=== PATIENT | female | born 1965 | race Caucasian/White ===

== ENCOUNTER → 2019-12-06 08:18 | Outpatient (BNVA) | payer OTHER, SELFPAY | PROVIDERS: Family Provider Family Medicine; PCP Family Medicine; Visit Provider Family Medicine | DX: I10 Essential (primary) hypertension (principal) | CPT/HCPCS: 80061 ==

== ENCOUNTER → 2019-12-13 17:11 | Outpatient (BNVA) | payer OTHER, SELFPAY | PROVIDERS: Family Provider Family Medicine; PCP Family Medicine; Referring Provider Family Medicine; Visit Provider Obstetrics & Gynecology Female Pelvic Medicine and Reconstructive Surgery | DX: Z12.4 Encounter for screening for malignant neoplasm of cervix (principal); Z12.39 Encounter for other screening for malignant neoplasm of breast; N81.6 Rectocele; N81.5 Vaginal enterocele; F17.219 Nicotine dependence, cigarettes, with unspecified nicotine-induced disorders | CPT/HCPCS: 81003; 88175 ==

== ENCOUNTER → 2020-01-05 07:57 | Outpatient (BNVA) | payer OTHER, SELFPAY | PROVIDERS: Family Provider Family Medicine; PCP Family Medicine; Visit Provider Obstetrics & Gynecology Female Pelvic Medicine and Reconstructive Surgery | DX: R87.612 Low grade squamous intraepithelial lesion on cytologic smear of cervix (LGSIL) (principal); R87.89 Other abnormal findings in specimens from female genital organs | CPT/HCPCS: 88305 ==

== ENCOUNTER → 2020-01-24 09:27 | Outpatient (BNVA) | payer OTHER, SELFPAY | PROVIDERS: Family Provider Family Medicine; PCP Family Medicine; Visit Provider Obstetrics & Gynecology Female Pelvic Medicine and Reconstructive Surgery | DX: R87.613 High grade squamous intraepithelial lesion on cytologic smear of cervix (HGSIL) (principal) | CPT/HCPCS: 88305; 88307 ==

== ENCOUNTER 2020-04-17 13:00 | Observation (INO) | payer OTHER, SELFPAY ==
[2020-04-13 12:45] VITALS: BMI 28.2
--- NOTE | 2020-04-13 13:03 | ANES.PREANE2 ---
Pre-Anesthetic Assessment Pre-Anesthetic Assessment: Height/Weight: Height 1.68 m Weight 79.379 kg Preop Diagnosis: Rectocele, Enterocele, Urinary incontinence - mixed Proposed Procedure: Operation Date: 04/17/20 11:05 Proposed Procedures p Posterior colporrhaphy with enterocele Code: 02625/86708/26662/N81.6/N81.5/N39.46(Not Applicable) - Martin Jimenez MD s Single incision urethral sling 59127(Not Applicable) - Martin Jimenez MD s Cystourethroscopy 98030(Not Applicable) - Martin Jimenez MD Social: Social History: Alcohol (occ) and Tobacco Exam: Pre-Anes Outpt Exam: alert, oriented x 3, clear to auscultation bilaterally and regular rate & rhythm Airway: Submandibular: WNL Cervical ROM: WNL MP: 1 Dentition: False (upper and lower) History/ROS: No significant history except as noted Pulmonary: Pulmonary: None reported CV/HEM: CV/HEM: HTN : : None reported Hepatic: Hepatic: None reported GI: GI: None reported Metabolic: Metabolic: None reported Musc/skel: Musc/skel: None reported Neuropsych: Neuropsych: None reported Anesthetic Plan: ASA status: 2 Anesthesia: Anesthesia Evaluation and General Risk of > 500 ml blood loss (7ml/kg in children): No PFSH Anesthesia PFSH: Medical History Benign essential hypertension OMID (generalized anxiety disorder) Surgical History H/O hernia repair History of bilateral tubal ligation (~2005) Family History Mother Ovarian cancer Uterine cancer Colon cancer high risk Grandmother Diabetes maternal Grandfather Hypertension maternal Thyroid disease maternal Social History Smoking and tobacco status: current every day smoker cigarettes Packs smoked per day: 0.5 Alcohol intake: current Alcohol intake frequency: holidays/special occasions only Data Anesthesia Cardiac Studies: No Data to Display
[2020-04-13 13:13] LABS: Add Urine Microscopic? NO
[2020-04-13 13:26] LABS: Basophils % 0.4 %; Eosinophils # 0.2 10^3/uL (0.0-0.8); Eosinophils % 2.3 %; Hematocrit 44.7 % (37.0-47.0); Hemoglobin 14.3 g/dL (11.5-15.3); Lymphocytes # 2.1 10^3/uL (0.8-4.8); Lymphocytes % 25.4 %; Mean Corpuscular Hemoglobin 30.9 pg (28.0-34.0); Mean Corpuscular Volume 96.5 fL (81-99); Mean Platelet Volume 11.4 fL (7.4-10.4); Monocytes # 0.8 10^3/uL (0.2-0.9); Monocytes % 9.3 %; Neutrophils # 5.06 10^3/uL (1.8-7.7); Neutrophils % 62.2 %; Nucleated Red Blood Cells % 0 %; Platelet Count 234 10^3/cmm (130-400); Red Blood Count 4.63 10^6/uL (4.1-5.3); Red Cell Distribution Width 12.3 % (12.1-15.1); White Blood Count 8.1 10^3/uL (4.0-10.0)
[2020-04-13 13:29] LABS: Bilirubin Urine Neg (NEGATIVE); Blood Urine Neg (Negative); Glucose Urine UA Norm (Normal); Ketones Urine Negative (Negative); Leukocyte Esterase Urine Negative (Negative); Nitrate Urine Negative (Negative); Protein Urine Neg (Negative); Specific Gravity, Urine 1.025 (1.005-1.030); Urine Appearance Clear (CLEAR); Urine Color Yellow (Yellow); Urobilinogen Urine Norm (Negative)
[2020-04-13 13:37] LABS: Anion Gap 14.9 (5-19); Blood Urea Nitrogen 12 mg/dL (6-20); Calcium 9.4 mg/dL (8.5-10.5); Carbon Dioxide 27 mmol/L (22-29); Chloride 96 mmol/L (98-107); Glomerular Filtration Rate 164.5 mL/min (90-130); Glucose 89 mg/dL (65-115); Osmolality Calculated 274 mOsm/kg (285-295); Potassium 3.9 mmol/L (3.5-5.1); Sodium 134 mmol/L (136-145)
[2020-04-17] VITALS (14 sets, daily range): BP systolic 92–142; BP diastolic 52–76; PULSE 55–94; RESP 13–20; TEMP 36.1–37; O2SAT 91–98
--- NOTE | 2020-04-17 08:26 | P.ANESASSM_ITS ---
Pre-Anesthetic Assessment Pre-Anesthetic Assessment: Height/Weight: Height 1.68 m Weight 79.379 kg Preop Diagnosis: Rectocele, Enterocele, Urinary incontinence - mixed Proposed Procedure: Operation Date: 04/17/20 09:35 Proposed Procedures p Posterior colporrhaphy with enterocele Code: 48826/57 288/58649/N81.6/N81.5/N39.46(Not Applicable) - Martin Jimenez MD s Single incision urethral sling 39531(Not Applicable) - Martin Jimenez MD s Cystourethroscopy 78952(Not Applicable) - Martin Jimenez MD Was Beta Clark taken within 24 hours: N/A Social: Social History: Tobacco and No alcohol Exam: Pre-Anes Outpt Exam: alert, oriented x 3, clear to auscultation bilaterally (Some coarse b/l BS noted; these cleared post tussive) and regular rate & rhythm Airway: Submandibular: WNL Cervical ROM: WNL MP: 1 Dentition: Full History/ROS: No significant history except as noted Pulmonary: Pulmonary: COPD CV/HEM: CV/HEM: HTN : : None reported Hepatic: Hepatic: None reported GI: GI: None reported Metabolic: Metabolic: None reported Musc/skel: Musc/skel: None reported Neuropsych: Neuropsych: Depression Anesthetic Plan: ASA status: 3 Anesthesia: General PFSH Anesthesia PFSH: Medical History Benign essential hypertension OMID (generalized anxiety disorder) Surgical History H/O hernia repair History of bilateral tubal ligation (~2005) Family History Mother Ovarian cancer Uterine cancer Colon cancer high risk Grandmother Diabetes maternal Grandfather Hypertension maternal Thyroid disease maternal Social History Smoking and tobacco status: current every day smoker cigarettes Packs smoked per day: 0.5 Alcohol intake: current Alcohol intake frequency: holidays/special occasions only Other details last substance use: Denies drug use. Data Anesthesia CBC & Chem 7: 04/13/20 12:57 04/13/20 12:57 Cardiac Studies: No Data to Display
[2020-04-17] MEDS: sodium chloride 0.9% 1,000 ML 30 ML IV (08:32)
[2020-04-17] MEDS: ketorolac 30 mg/mL INJ IVP ×2 (08:39→14:58)
[2020-04-17] MEDS: phenazopyridine 100 mg Tablet 200 MG PO ×3 (08:39→21:02)
--- NOTE | 2020-04-17 10:10 | P.HPUD_ITS ---
Surgery/Procedure H&P Update DATE OF PROCEDURE: April 17, 2020 DATE H&P PERFORMED: 04/13/20 H&P UPDATE INFORMATION: I have reviewed H&P completed within last 30 days, I have examined patient prior to procedure, No changes to prior documentation and H&P is in [facility] EMR on date indicated PREOP DIAGNOSIS: Rectocele, Enterocele, Urinary incontinence - mixed PLANNED PROCEDURE: Operation Date: 04/17/20 09:35 Proposed Procedures p Posterior colporrhaphy with enterocele Code: 61433/96687/55973/N81.6/N81.5/N39.46(Not Applicable) - Martin Jimenez MD s Single incision urethral sling 05565(Not Applicable) - Martin Jimenez MD s Cystourethroscopy 33856(Not Applicable) - Martin Jimenez MD
--- NOTE | 2020-04-17 10:10 | W.PM.OPSUD ---
Surgery/Procedure H&P Update DATE OF PROCEDURE: April 17, 2020 DATE H&P PERFORMED: 04/13/20 H&P UPDATE INFORMATION: I have reviewed H&P completed within last 30 days, I have examined patient prior to procedure, No changes to prior documentation and H&[place] is in [facility] [place] date indicated PREOP DIAGNOSIS: Rectocele, Enterocele, Urinary incontinence - mixed PLANNED PROCEDURE: Operation Date: 04/17/20 09:35 Proposed Procedures p Posterior colporrhaphy with enterocele Code: 32383/91124/60054/N81.6/N81.5/N39.46(Not Applicable) - Martin Jimenez MD s Single incision urethral sling 02202(Not Applicable) - Martin Jimenez MD s Cystourethroscopy 91180(Not Applicable) - Martin Jimenez MD
[2020-04-17] MEDS: vasopressin 20 unit/mL INJ 12 UNIT INJECTION (12:16)
--- NOTE | 2020-04-17 12:37 | SUR.PHASEI ---
1228 PATIENT TO PACU FROM OR. RR EVEN AND UNLABORED, SPO2 93% ON RA. DAVIS CATH IN PLACE. PATIENT C/O NEEDING TO HAVE A BM, BEDPAN PROVIDED.
--- NOTE | 2020-04-17 12:46 | P.OP_ITS ---
Operative Report Date of procedure: April 17, 2020 Pre-op Diagnosis: Rectocele, Enterocele, Urinary incontinence - mixed Post-op Diagnosis: Rectocele, Mixed urinary incontinence Procedure Done: Posterior colporrhaphy, Single incision suburethral sling, Cystoscopy Specimens removed/disposition: None Surgeon: Martin Jimenez Commercial Drone Software Developer: Bela Anesthesia: General Estimated blood loss (mL): 75 IV fluids (mL): 1,500 Complications: None Findings: Fourth degree rectocele. No enterocele identified. Brief History: Patient is a 55-year-old white female 7, para 7-0-0-6 who is postmenopausal. She presented to the office in December 2019 with complaint of prolapse problems. This is been worsening over the last 4 years. She has a protrusion from the vagina pretty much all the time which worsens with standing and straining. On exam she was found to have a 4th degree rectocele with a suspected enterocele. She was also having problems with mixed urinary incontinence and was noted to have hypermobility of the urethra. Treatment options for these problems were discussed and she is presenting for surgical treatment. She is scheduled for a posterior colporrhaphy with possible enterocele repair and a single incision suburethral sling. Procedure: Patient was taken to the operating room were general anesthesia was obtained. She was prepped and draped in usual sterile fashion dorsal supine position with legs in Baljeet style stirrups. Sequential compression boots were placed prior to starting the case. Exam under anesthesia was performed. She was noted to have fourth degree rectocele. Norman catheter was inserted. Perineum was injected with dilute Pitressin solution. A wedge shaped piece of skin was excised from the perineum. Posterior vaginal wall was injected with dilute Pitressin solution. The vaginal mucosa was undermined in the midline and skin incision made. This was opened over most of the length of the posterior vaginal wall. The vaginal mucosa was dissected from the rectovaginal fascia usi ng a combination of sharp and blunt dissection. This was carried along to the full length of the posterior vaginal wall and to the lateral aspects bilaterally. During the dissection process, she was found to have the rectovaginal fascia completely from the upper portion of the vagina. During the dissection, exam had revealed that she did not have an enterocele and that the entire prolapse was purely from a rectocele. The fascia at the perineum area was identified and grasped with long Allis clamps. At the upper vagina, stitches of 2-0 Vicryl suture were placed laterally into the area of the uterosacral ligaments. These were secured to the rectovaginal fascia. Once these were placed they were then tied, securing the rectovaginal fascia to the upper supports. Areas of defect of the rectovaginal fascia were then reapproximated using interrupted stitches of 2-0 Vicryl suture. The rectocele was able to be completely reduced with this. Excess vaginal mucosa was excised. The vaginal mucosa was closed in a running locking fashion using 3-0 Vicryl suture until the hymenal ring was reached and the suture was held. The perineal body was further built up using interrupted stitches of 2-0 Vicryl suture. A transition stitch was made using the previously held 3-0 Vicryl suture and the bulbocavernosus muscles were then incorporated into the stitch and tied in the midline. The superficial portion perineum was reapproximated using 3-0 Vicryl suture in a running fashion. The perineal skin was reapproximated using 3-0 Vicryl suture in a subcuticular fashion. The anterior vaginal wall and to the area of the urethra was grasped with Allis clamps and injected with dilute Pitressin solution. A midline incision was made under the urethra with the knife. The vaginal mucosa was bluntly dissected using Metzenbaum scissors to separate the skin from the underlying fascia directed towards the pubic rami bilaterally. Using a solyx single incision sling, sling was placed at the mid urethral level and passed through the periurethral fascia, directed at a 45 degree angle to the urethra and passed behind the pubic rami. This was repeated on the contralateral side. The sling was brought up until it just elevated the urethra. Norman catheter was removed and cystoscopy performed. Both ureters were noted to be effluxing urine well. No sling, suture material, masses, or other abnormalities were noted within the bladder or urethra. Bladder was drained and Norman catheter reinserted. Vaginal mucosa was reapproximated under the urethra using 3-0 Vicryl suture in a running locking fashion. The vagina was packed with 1 inch Nu Gauze. Patient tolerated procedure well. Sponge, needle, and instrument counts were correct. DRAINS: Norman catheter POSTOPERATIVE STATUS: The patient was transferred to the recovery room in satisfactory condition.
--- NOTE | 2020-04-17 13:10 | SUR.PHASEI ---
1251 PATIENT TO MED SURG. DENIES PAIN OR NAUSEA. C/O NEEDING TO HAVE A BM. PATIENT ASSISTED TO BSC WHEN ARRIVING TO MED SURG. GAIT STEADY, DAVIS AND VAG PACKING IN PLACE.
[2020-04-17] MEDS: dextrose 5%-lactated ringers 1,000 ML 125 ML IV ×2 (13:29→21:02)
[2020-04-17] MEDS: ondansetron 2 mg/ML SDV 2 mL 4 MG IVP (14:34)
--- NOTE | 2020-04-17 15:05 | PC.NURSE ---
packing intact and encouraged pt to keep from pulling packing out.
[2020-04-17] MEDS: docusate sodium 100 mg Capsule PO (17:00)
[2020-04-17] MEDS: acetaminophen 325 mg Tablet 650 MG PO (17:00)
[2020-04-17] MEDS: HYDROcodone-acetaminophen 5-325 mg Tablet PO (17:57)
[2020-04-18] VITALS: BP 109/67; PULSE 84; RESP 20; TEMP 36.9; O2SAT 92
[2020-04-18] MEDS: dextrose 5%-lactated ringers 1,000 ML 125 ML IV (03:56)
[2020-04-18 04:00] VITALS: BP 114/66; PULSE 92; RESP 20; TEMP 37.4; O2SAT 91
[2020-04-18] MEDS: HYDROcodone-acetaminophen 5-325 mg Tablet PO ×2 (04:37→09:40)
[2020-04-18 04:45] LABS: Hematocrit 40.5 % (37.0-47.0); Hemoglobin 12.6 g/dL (11.5-15.3); Mean Corpuscular HGB Conc 31.1 g/dL (30.0-36.0); Mean Corpuscular Hemoglobin 30.1 pg (28.0-34.0); Mean Corpuscular Volume 96.9 fL (81-99); Mean Platelet Volume 11.7 fL (7.4-10.4); Platelet Count 235 10^3/cmm (130-400); Red Blood Count 4.18 10^6/uL (4.1-5.3); Red Cell Distribution Width 12.2 % (12.1-15.1); White Blood Count 15.5 10^3/uL (4.0-10.0)
--- NOTE | 2020-04-18 05:46 | PC.NURSE ---
SHIFT SUMMARY Rested well tonight. Awake early watching TV. Says she goes to work early and is used to being up. Given po Hydrocodone X1 this morning. Was c/o back pain. Norman intact and has had good urine output with q2h output. Urine is orange from po Pyridium she is receiving. Vaginal packing in place. Has already ambulated in banks this morning and tolerated well. Taking po fluids well. Scant blood noted on pad
[2020-04-18 06:55] VITALS: RESP 16
[2020-04-18] MEDS: morphine 4 mg/mL SDV 1 mL IVP (06:55)
[2020-04-18 07:38] VITALS: BP 110/59; PULSE 82; RESP 18; TEMP 37.2; O2SAT 92
--- NOTE | 2020-04-18 08:27 | PM.PN ---
Subjective Subjective: Interval history: Patient reports doing well this morning. She states that her pain is been well controlled on the oral medications. She denied any lightheadedness or dizziness with getting up out of bed. She denied any shortness of breath or chest pains. She reports passing flatus. She reports tolerating liquids without nausea or vomiting. Vitals/I&O/Wt Last Vital Signs Temp 98.9 F 04/18/20 07:38 Pulse 82 04/18/20 07:38 Resp 18 04/18/20 07:38 BP 110/59 04/18/20 07:38 Pulse Ox 92 04/18/20 07:38 04/17/20 04/18/20 04/18/20 22:59 06:59 14:59 Intake Total 1190.00 / 2740.00 1156.25 / 3896.25 Output Total 775 / 1050 1400 / 2450 Balance 415.00 / 1690.00 -243.75 / 1446.25 Physical Exam Const: COMMON NORMALS: no acute distress, average body habitus, alert and well nourished GENERAL APPEARANCE: well developed ORIENTATION/CONSCIOUSNESS: Yes oriented to person, Yes oriented to place and Yes oriented to time Resp: COMMON NORMALS: normal respiratory effort and clear to auscultation bilaterally AUSCULTATION: clear to auscultation bilaterally Cardio: COMMON NORMALS: regular rate, regular rhythm, No gallops present (Cardio), No murmurs present (Cardio) and No rub (Cardio) RATE: regular rate RHYTHM: regular rhythm GI: COMMON NORMALS: Soft to palpation, No hepatosplenomegaly present and no masses AUSCULTATION: Yes normoactive bowel sounds PALPATION: Yes Soft to palpation, Yes Tenderness to palpation present (GI) (Mild lower abdominal discomfort to palpation), Yes No hepatosplenomegaly present and No Hernia present : EXTERNAL FEMALE EXAM: No Hernia present OTHER: Vaginal packing removed Extremity: COMMON NORMALS: no clubbing, cyanosis or edema and no calf tenderness Neuro: SENSORIUM/ORIENTATION: Yes alert, Yes oriented to person, Yes oriented to place and Yes oriented to time Psych: COMMON NORMALS: normal affect MOOD & AFFECT: Yes euthymic mood Urinary Catheter Management^: Norman: Cath Placed During This Visit: yes Urinary Catheter Date of Insertion: 04/17/20 Urinary Catheter Time of Insertion: 10:40 Data : 04/18/20 04:05 04/13/20 12:57 A&P Assessment and plan (1) Pelvic organ prolapse quantification stage 4 rectocele: Postoperative day 1, status post posterior vaginal repair. Vaginal packing removed this morning. Increase activities. May shower. Advance to regular diet. Discharge to home later this morning. Status: Acute (2) Urinary incontinence: Postoperative day 1, status post urethral sling. Norman catheter discontinued this morning. Check post void residuals. Depending upon how she does, she may have to go home with Norman catheter or self-catheterization. Status: Acute Qualifiers: Urinary Incontinence type: mixed stress and urge incontinence Qualified Code(s): N39.46 - Mixed incontinence Attestations Medical Necessity Statement*: Postoperative day 1. Plan to discharge to home later today. Coding Level of Care Code Acute Peer Financial Counselor for Jerson Estrella Diagnoses Pelvic organ prolapse quantification stage 4 rectocele N81.6 Urinary incontinence N39.46 Urinary Incontinence type: mixed stress and urge incontinence
[2020-04-18] MEDS: phenazopyridine 100 mg Tablet 200 MG PO (09:35)
[2020-04-18] MEDS: amlodipine 10 mg Tablet PO (09:36)
[2020-04-18] MEDS: docusate sodium 100 mg Capsule PO (09:36)
[2020-04-18] MEDS: sertraline 100 mg Tablet PO (09:36)
[2020-04-18] MEDS: sertraline 50 mg Tablet PO (09:36)
[2020-04-18] MEDS: lisinopril 20 mg Tablet PO (09:36)
--- NOTE | 2020-04-18 09:49 | PC.CHAP ---
Pastoral Care Encounter/Spiritual Assessment Type of Contact [] Declined proof reader visit [] Patient/Family/Request visit [] Outpatient visit [] Follow-up visit [] Physician referral [] Code/Alert [x] Routine visit [] Staff referral [] Actively dying [] Patient sleeping [] Family support [] [] Out of room [] Palliative care [] [] Receiving care in room [] Pre-surgical visit [] Trauma [] Long length of stay [] ICU visit [] Other: Relational/Emotional Strength [] Patient feels connected with others/family/visitors/staff [] Distress [] Loneliness/isolation [] Abandonment Spirituality of Patient [] Person of Evi [] Attends Mandaen of their Evi [] Believes in Prayer [] Reads Bible or Yarsanism materials [] There are Spiritual issues to be addressed Upholstery Auto Trimmer Interventions [x] Prayer [x] Active listening [x] Non-anxious presence [x] Spiritual/emotional support [] Crisis/trauma care [] Spiritual counseling [] Bereavement support [] Provided bereavement packet [] Provided Bible/devotional materials [] Provided toy/stuffed animal, coloring book to patient or family member [] Provided Communion [] Anointing/[place] [] Salvation [x] Completed spiritual assessment [] Other: Impact on Illness or Injury [] Angry [] Fearful [] Anxious [] Often cries [] Exhaustion [] Unable to work [] Unable to attend denominational [] Unable to walk/stand [] Unable to read [] Unable to drive [] Unable to eat/drink [] Unable to sleep [] Unable to be with family [] Patient intubated [] Other: Summary Patient resting well Time spent with patient 5 min
[2020-04-18 11:18] VITALS: BP 96/60; PULSE 75; RESP 20; TEMP 37.1; O2SAT 94
--- NOTE | 2020-04-18 12:05 | PC.RESP ---
Smoking Cessation information sent to patient.
--- NOTE | 2020-04-18 13:24 | P.DS_ITS ---
Discharge Providers Date of Admission: 04/17/20 13:00 Date of Discharge: April 18, 2020 Attending Provider at Admission: Martin Jimenez MD Attending Provider at Discharge: Martin Jimenez MD Primary Care Provider: Florecita Thomas DO Diagnoses at Discharge Discharge Diagnosis (1) Pelvic organ prolapse quantification stage 4 rectocele: Status: Acute (2) Urinary incontinence: Status: Acute Qualifiers: Urinary Incontinence type: mixed stress and urge incontinence Qualified Code(s): N39.46 - Mixed incontinence Reason for Visit Reason for Visit: PROLAPSE Hospital Course Hospital Course: Patient is a 55-year-old white female 7, para 7-0-0-6 who is postmenopausal. She presented to the office with prolapse complaints that have been worsening over the last 4 years. She reported a bulge from the vaginal opening that was present most of the time that would worsen with standing and straining. She was found to have a 4th degree rectocele with a suspected enterocele. She also reported urinary incontinence including both stress and urgency symptoms. Treatment options were discussed and she was presenting for surgical treatment. She was admitted to the hospital and had a posterior vaginal repair and single incision suburethral sling. Following surgery she did well. On postoperative day 1, she reported that her pain was well controlled on oral medications. She was tolerating liquids without nausea or vomiting. She was ambulating without lightheadedness or dizziness. Her pain was well controlled on oral medications. She was afebrile with stable vital signs. Activities were increased. Norman catheter was removed and post void residuals checked. She had a voided volume of over 400 mL with less than a 50 residual. As a result, post void residual checking was stopped and she was discharged home. She was to follow-up in the office in 2 and 6 weeks. Physical Exam Urinary Catheter Management^: Norman: Cath Placed During This Visit: yes Urinary Catheter Date of Insertion: 04/17/20 Urinary Catheter Time of Insertion: 10:40 Discharge Data Data Completed and Pending: Labs from last 24 hours 04/18/20 04:05 WBC 15.5 H RBC 4.18 Hgb 12.6 Hct 40.5 MCV 96.9 MCH 30.1 MCHC 31.1 RDW 12.2 Plt Count 235 MPV 11.7 H Vitals: Last Vital Signs Temp 98.8 F 04/18/20 11:18 Pulse 75 04/18/20 11:18 Resp 20 H 04/18/20 11:18 BP 96/60 04/18/20 11:18 Pulse Ox 94 04/18/20 11:18 Discharge Plan Discharge Patient Disposition: Home, Self-Care Condition: Stable Prescriptions: New ibuprofen 800 mg Tablet 800 mg PO TID PRN (Reason: pain) Qty: 40 RF: 0 hydrocodone-acetaminophen 5-325 mg Tablet 1 - 2 tab PO Q6H PRN (Reason: Moderate To Severe Pain) Qty: 30 RF: 0 Continued amlodipine [Norvasc] 10 mg tablet 10 mg PO DAILY Qty: 90 RF: 1 lisinopril 20 mg tablet 20 mg PO DAILY Qty: 90 RF: 1 sertraline [Zoloft] 50 mg tablet 50 mg PO DAILY Qty: 90 RF: 1 sertraline [Zoloft] 100 mg tablet 100 mg PO DAILY Qty: 90 RF: 1 Held Premarin 0.625 mg/gram cream 1.25 mg VAGINAL .nightly Qty: 30 RF: 1 Hold Instructions: Resume on 04/30/20. Restart the vaginal estrogen approx 2 weeks after surgery Discharge Orders: Discharge Order (Routine); Ordered 04/18/20 Ordered By: Martin Jimenez Referrals: Martin Jimenez MD [Physician] - 04/30/20 8:45 am (2 week postoperative appointment on 04/30/2020 at 08:45 6 week postoperative appointment on 06/04/2020 at 08:00 ) Discharge Diet: Regular Discharge Activity: Limit activity as instructed Patient Instructions: Hydrocodone/Acetaminophen (By mouth), Ibuprofen (By mouth), OB Abdominal Surgery - [facility], Urinary Incontinence Discharge Attestations Time Spent in Discharge Care*: less than 30 min Quality Metrics Clinical Quality Measures During this hospital stay, did patient experience: None Coding Level of Care Code Acute Oil Well Service Unit Operator for Chg Fwd Diagnoses Pelvic organ prolapse quantification stage 4 rectocele N81.6 Urinary incontinence N39.46 Urinary Incontinence type: mixed stress and urge incontinence
[2020-04-18 14:01] VITALS: BP 96/60; PULSE 75; RESP 20; TEMP 37.1; O2SAT 94
== END 2020-04-18 14:03 | disposition home or self-care (01) ==
LOC: MEDSURG 13:00
PROVIDERS: Admitting Provider Obstetrics & Gynecology; PCP Family Medicine; Visit Provider Obstetrics & Gynecology
PROC: (CPT 57250; principal; 2020-04-17 09:35)
PROC: (CPT 57288; 2020-04-17 09:35)
PROC: 0TJ98ZZ Inspection of Ureter, Via Natural or Artificial Opening Endoscopic (ICD-10-PCS; CPT 52351; 2020-04-17 09:35)
DX: N81.6 Rectocele (principal); K46.9 Unspecified abdominal hernia without obstruction or gangrene; N39.46 Mixed incontinence; J44.9 Chronic obstructive pulmonary disease, unspecified; I10 Essential (primary) hypertension; F41.9 Anxiety disorder, unspecified; Z80.41 Family history of malignant neoplasm of ovary; Z80.8 Family history of malignant neoplasm of other organs or systems; Z80.0 Family history of malignant neoplasm of digestive organs; F17.210 Nicotine dependence, cigarettes, uncomplicated
CPT/HCPCS: 57265; 57288; 12345; 36415; 51798; 80048; 81003; 85025; 85027; 86850; 86900; 87086; 96361; 96365; 96374; 96375; C1771; G0378; J0690; J1885; J1940; J2270; J2405; J2710; J3010; J3490; J7030

== ENCOUNTER → 2020-12-27 08:18 | Outpatient (BNVA) | payer OTHER, SELFPAY | PROVIDERS: PCP Family Medicine; Visit Provider Family Medicine | DX: E78.5 Hyperlipidemia, unspecified (principal); F41.1 Generalized anxiety disorder; Z86.39 Personal history of other endocrine, nutritional and metabolic disease; I10 Essential (primary) hypertension; F17.219 Nicotine dependence, cigarettes, with unspecified nicotine-induced disorders; Z71.6 Tobacco abuse counseling; Z71.89 Other specified counseling | CPT/HCPCS: 80053; 80061; 82043; 82306; 85025; 87086 ==

== ENCOUNTER 2021-07-08 13:48 | Outpatient (CLI) | payer OTHER, SELFPAY ==
--- NOTE | 2021-07-08 14:00 | MM_ITS ---
WS: [id number] SCREENING DIGITAL MAMMOGRAM WITH CAD HISTORY: screening mammogram COMPARISON: 12/10/2015 Bilateral CC and MLO views submitted. Computer aided detection analyzed. Breast composition: There are scattered areas of fibroglandular density. No suspicious masses, microc alcifications or architectural distortion. MM/[place] [id number] IMPRESSION: BI-RADS: 1-Negative FOLLOW UP: 1 Year Follow-up
== END 2021-07-08 13:49 | disposition home or self-care (01) ==
LOC: RADSHAW 13:50
PROVIDERS: PCP Family Medicine; Visit Provider Family Medicine
DX: Z12.31 Encounter for screening mammogram for malignant neoplasm of breast (principal)
CPT/HCPCS: 77067

== ENCOUNTER 2022-09-15 07:38 | Day surgery (SDC) | payer OTHER, SELFPAY ==
[2022-09-11 10:17] VITALS: BMI 27.4
[2022-09-15 08:06] VITALS: BP 168/102; PULSE 98; RESP 18; TEMP 36.2; O2SAT 92
[2022-09-15] MEDS: sodium chloride 0.9% 1,000 ML 30 ML IV (08:12)
--- NOTE | 2022-09-15 08:23 | ANES.PREANE2 ---
Pre-Anesthetic Assessment Height/Weight: Height 1.68 m Weight 77.111 kg Temp Pulse Resp BP Pulse Ox O2 Del Method 97.1 F L 98 18 168/102 92 09/15/22 08:06 09/15/22 08:06 09/15/22 08:06 09/15/22 08:06 09/15/22 08:06 09/15/22 08:06 Preop Diagnosis: Rectocele, Enterocele, Urinary incontinence - mixed Operation Date: 09/15/22 09:30 Proposed Procedures p Colonoscopy 16739,Z80.0(Not Applicable) - Jesus Flaherty DO Familial anesthetic complications: None Was Beta Clark taken within 24 hours: N/A Was Clonidine taken within 24 hours: N/A Last intake: Intake Last Liquid Date 09/14/22 Last Liquid Time 23:45 Last Solid Date 09/13/22 Last Solid Time 21:00 Social Tobacco and No alcohol Exam alert, oriented x 3, clear to auscultation bilaterally and regular rate & rhythm Airway Mallampati: Class III Dentition: false Pulmonary Chronic Obstructive Pulmonary Disease CV/HEM Hypertension Metabolic Hyperlipidemia Anesthetic Plan ASA status: 3 Anesthesia: MAC Risk of > 500 ml blood loss (7ml/kg in children): No Medications/Allergies Home Medications Medication Instructions Recorded Confirmed Last Taken Type cholecalciferol (vitamin D3) 1,250 50,000 unit PO .ONCE WEEKLY #12 12/28/20 09/15/22 09/13/22 Rx mcg (50,000 unit) capsule caps amlodipine 10 mg tablet (Norvasc) 10 mg PO DAILY #90 tabs 04/30/22 09/15/22 09/13/22 Rx atorvastatin 10 mg tablet 10 mg PO DAILY #90 tabs 04/30/22 09/15/22 09/13/22 Rx lisinopril 20 mg tablet 20 mg PO DAILY #90 tabs 04/30/22 09/15/22 09/13/22 Rx sertraline 100 mg tablet (Zoloft) 100 mg PO DAILY #90 tabs 04/30/22 09/15/22 09/13/22 Rx sertraline 50 mg tablet (Zoloft) 50 mg PO DAILY #90 tabs 04/30/22 09/15/22 09/13/22 Rx peg 3350-electrolytes 236 240 ml PO Q10M #4,000 mL 06/13/22 09/15/22 09/13/22 Rx gram-22.74 gram-6.74 gram-5.86 gram solution (Golytely) albuterol sulfate 90 mcg/actuation 2 inh inhalation Q4H PRN shortness 07/20/22 09/15/22 1 Week Ago Rx aerosol inhaler of breath or wheezing #6.7 grams ~09/08/22 ibuprofen 600 mg tablet 600 mg PO Q6H PRN fever or pain 07/20/22 09/15/22 1 Week Ago Rx #30 tabs ~09/08/22 prednisone 20 mg tablet 60 mg PO DAILY 5 days #15 tabs 07/20/22 09/15/22 09/13/22 Rx Allergies Allergy/AdvReac Type Severity Reaction Status Date / Time Penicillins AdvReac Mild hives, Verified 07/20/22 13:06 itching Current Medications Generic Name Dose Route Start Last Admin Trade Name Freq PRN Reason Stop Dose Admin Sodium Chloride 1,000 mls @ 30 mls/hr 09/15/22 08:00 09/15/22 08:12 Sodium Chloride 0.9% IV 09/16/22 07:59 30 mls/hr .Q24H OLGA Administration PFSH Anesthesia Medical History Acute pharyngitis Benign essential hypertension Dyslipidemia OMID (generalized anxiety disorder) Neck swelling Surgical History H/O hernia repair History of bilateral tubal ligation (~2005) History of vaginal surgery (04/17/20) Posterior colporrhaphy, SIS sling. Dx: Fourth degree rectocele, BRIANNA. Performed by Dr. Jimenez at [facility] in [place], [place] Hx of colonoscopy with polypectomy Family History Mother Ovarian cancer Uterine cancer Colon cancer high risk Grandmother Diabetes maternal Grandfather Hypertension maternal Thyroid disease maternal Social History Smoking and tobacco status: current every day smoker cigarettes Packs smoked per day: 0.75 Alcohol intake: current Alcohol intake frequency: holidays/special occasions only Other details last substance use: Denies drug use. Data Anesthesia Cardiac Studies: No Data to Display
--- NOTE | 2022-09-15 09:37 | P.HP_ITS ---
Providers/Chief Complaint Primary Care Provider: Florecita Thomas DO Chief Complaint: Z80.0 History of Present Illness Linda Alejandra is a 57 year old female here for colonoscopy Medications/Allergies Home Medications Medication Instructions Recorded Confirmed Last Taken Type cholecalciferol (vitamin D3) 1,250 50,000 unit PO .ONCE WEEKLY #12 12/28/2009/0409/13/22 Rx mcg (50,000 unit) capsule caps amlodipine 10 mg tablet (Norvasc) 10 mg PO DAILY #90 tabs 04/30/22 09/15/22 09/13/22 Rx atorvastatin 10 mg tablet 10 mg PO DAILY #90 tabs 04/30/22 09/15/22 09/13/22 Rx lisinopril 20 mg tablet 20 mg PO DAILY #90 tabs 04/30/22 09/15/22 09/13/22 Rx sertraline 100 mg tablet (Zoloft) 100 mg PO DAILY #90 tabs 04/30/22 09/15/22 09/13/22 Rx sertraline 50 mg tablet (Zoloft) 50 mg PO DAILY #90 tabs 04/30/22 09/15/22 09/13/22 Rx peg 3350-electrolytes 236 240 ml PO Q10M #4,000 mL 06/13/22 09/15/22 09/13/22 Rx gram-22.74 gram-6.74 gram-5.86 gram solution (Golytely) albuterol sulfate 90 mcg/actuation 2 inh inhalation Q4H PRN shortness 07/20/22 09/15/22 1 Week Ago Rx aerosol inhaler of breath or wheezing #6.7 grams ~09/08/22 ibuprofen 600 mg tablet 600 mg PO Q6H PRN fever or pain 07/20/22 09/15/22 1 Week Ago Rx #30 tabs ~09/08/22 prednisone 20 mg tablet 60 mg PO DAILY 5 days #15 tabs 07/20/22 09/15/22 09/13/22 Rx Allergies Allergy/AdvReac Type Severity Reaction Status Date / Time Penicillins AdvReac Mild hives, Verified 07/20/22 13:06 itching PFSH Acute PFSH: Medical History Acute pharyngitis Benign essential hypertension Dyslipidemia OMID (generalized anxiety disorder) Neck swelling Surgical History H/O hernia repair History of bilateral tubal ligation (~2005) History of vaginal surgery (04/17/20) Posterior colporrhaphy, SIS sling. Dx: Fourth degree rectocele, BRIANNA. Performed by Dr. Jimenez at [facility] in [place], [place] Hx of colonoscopy with polypectomy Family History Mother Ovarian cancer Uterine cancer Colon cancer high risk Grandmother Diabetes maternal Grandfather Hypertension maternal Thyroid disease maternal Social History Smoking and tobacco status: current every day smoker cigarettes Packs smoked per day: 0.75 Alcohol intake: current Alcohol intake frequency: holidays/special occasions only Other details last substance use: Denies drug use. Vitals/I&O/Wt Last Vital Signs Temp 97.1 F L 09/15/22 08:06 Pulse 98 09/15/22 08:06 Resp 18 09/15/22 08:06 BP 168/102 09/15/22 08:06 Pulse Ox 92 09/15/22 08:06 O2 Del Method 09/15/22 08:06 A&P Assessment and plan (1) Family history of colon cancer: (2) Colon cancer screening: Plan Colonoscopy Attestations Medical Necessity Statement*: Home Coding Level of Care Code Acute Automation Engineering Manager for Chg Fwd Diagnoses Family history of colon cancer Z80.0 Colon cancer screening Z12.11
[2022-09-15 10:04] VITALS: BP 110/72; PULSE 83; RESP 12; TEMP 36.3; O2SAT 97
[2022-09-15 10:14] VITALS: BP 128/76; PULSE 94; RESP 14; O2SAT 94
[2022-09-15 10:23] VITALS: BP 141/92; PULSE 91; RESP 16; O2SAT 92
--- NOTE | 2022-09-15 14:08 | ANE.PACU2 ---
Inpatient post-anesthesia follow up: Airway intact: Yes Vital signs: Temperature 97.3 F Pulse Rate 91 Respiratory Rate 16 Blood Pressure 141/92 Pulse Oximetry 92 Oxygen Delivery Me thod Room Air Oxygen Flow Rate Fraction of Inspir ed Oxygen Hydration adequate: Yes Nausea and vomiting: No Pain level: 1 Mental status: Baseline
== END 2022-09-15 10:30 | disposition home or self-care (01) ==
PROVIDERS: PCP Family Medicine; Visit Provider Surgery
PROC: 0DJD8ZZ Inspection of Lower Intestinal Tract, Via Natural or Artificial Opening Endoscopic (ICD-10-PCS; CPT 45378; principal; 2022-09-15 09:30)
DX: Z12.11 Encounter for screening for malignant neoplasm of colon (principal); Z80.0 Family history of malignant neoplasm of digestive organs; K57.30 Diverticulosis of large intestine without perforation or abscess without bleeding; J44.9 Chronic obstructive pulmonary disease, unspecified; I10 Essential (primary) hypertension; E78.5 Hyperlipidemia, unspecified; F17.210 Nicotine dependence, cigarettes, uncomplicated
CPT/HCPCS: 45380; 88305; J2704; J7030

== ENCOUNTER 2023-11-17 17:04 | Inpatient (IN) | payer OTHER, SELFPAY ==
[2023-11-17] VITALS (38 sets, daily range): BP systolic 75–191; BP diastolic 39–110; PULSE 60–123; RESP 16–37; TEMP 36.6–36.7; O2SAT 61–98; BMI 25.8
--- NOTE | 2023-11-17 17:18 | XRR_ITS ---
PROCEDURE INFORMATION: Exam: XR Chest Exam date and time: 11/17/2023 5:25 PM Age: 58 years old Clinical indication: Shortness of breath; Additional info: Dyspnea/cough TECHNIQUE: Imaging protocol: Radiologic exam of the chest. Views: 1 view. COMPARISON: No relevant prior studies available. FINDINGS: Lungs: Mid to lower lung airspace opacities on the right compatible with developing pneumonia in the proper clinical setting. Additional mild hazy opacities in the mid to lower left lung. Pleural spaces: No evidence of pneumothorax. No evidence of pleural effusion. Heart/Mediastinum: Cardiomediastinal silhouette is within normal limits. Bones/joints: No evidence of acute osseous abnormality. XR/XR chest 1V portable [id number] IMPRESSION: 1. Mid to lower lung airspace opacities on the right compatible with developing pneumonia in the proper clinical setting.
--- NOTE | 2023-11-17 17:19 | ECG_ITS ---
[facility] Test Date: 2023-11-17 Pat Name: Lidna Alejandra Department: Room: Gender: Female Arrt Technologist: : [id number] Requested By: Graeme Varela Order Number: [id number] Sherrie MD: Abdifatah Jay M.D. Measurements Intervals [place] Rate: 73 P: 67 KS: 139 QRS: 92 QRSD: 102 T: 268 QT: 508 QTc: 561 Interpretive Statements SINUS RHYTHM WITH OCCASIONAL VENTRICULAR PREMATURE COMPLEXES LEFT ATRIAL ENLARGEMENT [-0.15mV P-WAVE IN V1/V2] BORDERLINE RIGHT AXIS DEVIATION [QRS AXIS > 90] ST DEVIATION AND MARKED T-WAVE ABNORMALITY, CONSIDER ANTEROLATERAL ISCHEMIA [-0.5+ mV T-WAVE IN I/aVL/V3-V6] ST DEVIATION AND MODERATE T-WAVE ABNORMALITY, CONSIDER INFERIOR ISCHEMIA [-0.1+ mV T-WAVE IN II/aVF] No previous ECG available for comparison Electronically Signed On 11-18-2023 15:46:50 PRORATE CLERK by Abdifatah Jay M.D. [email or web address]
--- NOTE | 2023-11-17 17:24 | ED_ITS ---
Documented by User: Graeme Vera DO 11/23/23 07:11 HPI - SOB/Dyspnea 2 General: Chief Complaint: Shortness of Breath/Dyspnea Stated Complaint: sent by gagan pelaez, low O2 Time Seen by Provider: 11/17/23 17:18 Source: patient Mode of arrival: ambulatory History of Present Illness: HPI Narrative: 58-year-old female presents emergency ro [facility] urgent care. She was seen in urgent care earlier today and reported sats in the 40s and 50s severe dyspnea she does not normally wear oxygen she does have a known history of COPD. She uses albuterol as needed but is not on any long-term maintenance medications. She denies any chest or abdominal pain she has had a productive cough of clear sputum denies any hemoptysis no history of PE no history of DVT she is not on any anticoagulants no history of coronary artery disease MD elicited complaint: shortness of breath and cough Pertinent past history: COPD Onset (ago): day(s) (2) Timing: constant Severity: severe Exacerbating factors: nothing Relieving factors: nothing Known history of: COPD Associated symptoms: Reports chest congestion, cough, fever(s), nausea and orthopnea; Deny abdominal pain, chest pain, diaphoresis, dizziness, extremity pain, hemoptysis, lightheadedness, myalgias, palpitations, paresthesias, polydipsia, polyuria, rash, sense of impending doom, syncope or vomiting Treatment prior to arrival: oxygen and bronchodilator Review of Systems 2 Const: Reports: fever(s), chills, fatigue and malaise; Denies: diaphoresis Card: Reports: orthopnea; Denies: chest pain, palpitations, edema, swelling of feet/ankles, lightheadedness or syncope Resp: Reports: dyspnea, productive cough, wheezing and chest congestion; Denies: hemoptysis GI: Reports: nausea; Denies: abdominal pain or vomiting : Denies: dysuria, urinary frequency or urinary urgency Musc: Denies: extremity pain Skin/Breast: Denies: rash Neuro: Denies: dizziness Endo: Denies: polyuria or polydipsia PFS ED 2 PFSH: Medical History Rectoperineal fistula Chronic bronchitis with acute exacerbation COPD with hypoxia COPD (chronic obstructive pulmonary disease) with acute bronchitis Family history of colon cancer 09/15/[address] Flaherty with biopsy and repeat colonoscopy in 5 years Neck swelling Dyslipidemia Cervical intraepithelial neoplasia II Urinary incontinence Benign essential hypertension OMID (generalized anxiety disorder) Surgical History Hx of colonoscopy with polypectomy History of vaginal surgery (04/17/20) Posterior colporrhaphy, SIS sling. Dx: Fourth degree rectocele, BRIANNA. Performed [place] Dr. Jimenez at [facility] [place], [place] History of bilateral tubal ligation (~2005) H/O hernia repair Family History Mother Ovarian cancer Uterine cancer Colon cancer high risk Grandmother Diabetes maternal Grandfather Hypertension maternal Thyroid disease maternal Social History Smoking and tobacco/nicotine status: current every day tobacco/nicotine user cigarettes Packs smoked per day: 0.75 Alcohol intake: current Alcohol intake frequency: holidays/special occasions only Substance/Drug Use: never Physical Exam 2 Const: GENERAL APPEARANCE: cooperative ORIENTATION/CONSCIOUSNESS: Yes awake, Yes oriented to person, Yes oriented to place and Yes oriented to time HENMT: COMMON NORMALS: normocephalic, atraumatic and hearing grossly normal bilaterally HEAD & SCALP: normocephalic and atraumatic Resp: AUSCULTATION: rhonchi, wheezes and diminished lung sounds Cardio: COMMON NORMALS: regular rhythm RATE: tachycardic RHYTHM: regular rhythm HEART SOUNDS: Murmur heart sound present systolic Intensity: III/ GI: COMMON NORMALS: Soft to palpation and No hepatosplenomegaly present A USCULTATION: Yes normoactive bowel sounds PALPATION: Yes Soft to palpation, No Tenderness to palpation present (GI), No Guarding due to palpation present (GI) and Yes No hepatosplenomegaly present : COMMON NORMALS: Yes no CVA tenderness BLADDER/KIDNEY EXAM: Yes no CVA tenderness Back/Pelvis: COMMON NORMALS: no CVA tenderness Extremity: COMMON NORMALS: normal to inspection, capillary refill normal, no clubbing, cyanosis or edema, no calf tenderness and no pedal edema Neuro: SENSORIUM/ORIENTATION: Yes oriented to person, Yes oriented to place and Yes oriented to time Skin: COMMON NORMALS: no rashes or lesions noted GENERAL SKIN EXAM: no rashes or lesions noted Course 2 Vital Signs: Vital signs: Vital Signs Temperature 97.4 F L 11/23/23 04:00 Pulse Rate 91 11/23/23 05:15 Respiratory Rate 16 11/22/23 22:27 Blood Pressure 126/72 11/23/23 04:00 Pulse Oximetry 95 11/23/23 04:00 Oxygen Delivery Me thod Nasal Cannula 11/23/23 04:00 Oxygen Flow Rate 6 11/22/23 22:27 Fraction of Inspir ed Oxygen 40 11/18/23 09:36 MDM - SOB/Dyspnea Medical Decision Making Patient started on BiPAP, labs are pending. Care signed out to Dr. Rahman at change of shift. See final notes for diagnosis and disposition. I assumed care of the patient from Dr. Vera I did review the patient's CT scan as well as her chest x-ray she was provided IV antibiotics I have contacted the hospitalist physician to request admission. I did review the patient's initial twelve-lead EKG that was obtained at 1717 and there is concern for ST depression in leads V3, V4, V5 and V6 as well as some slight approximately [address] depression in 2 3 and aVF she does remain chest pain-free. A repeat twelve-lead EKG at 20: 58 did demonstrate normal sinus rhythm with a repeat of ST depression in V3 V4 V5 and V6 as well as 2, 3, aVF. I did discuss the EKG findings with the hospitalist I advised him I did provide cardiac dose aspirin and the hospitalist stated that he would treat the patient with Lovenox and would monitor the 6-hour troponin and that he would get a cardiology consult. Patient has remained chest pain-free. I did advise her that we are going to admit her for her pneumonia and continued need for supplemental oxygen and hypoxemia. Lab Data 11/22/23 05:20 11/23/23 03:18 Labs/Radiology: Radiology Impressions Chest CTA 11/17/23 17:34 IMPRESSION: 1. No evidence of PE or acute aortic abnormality. 2. Mild interstitial pulmonary edema and small-moderate right-sided pleural effusion. No convincing evidence of pneumonia. 3. Dilation of the pulmonary trunk suggesting pulmonary arterial hypertension. 4. Right middle lobe segmental atelectasis. 5. Few prominent mediastinal and enlarged right hilar nodes, favored to be secondary to lymphovascular congestion. Consider follow-up CT of the chest in 4-6 weeks to assess for resolution. 6. Moderate emphysematous changes. Correlation with patient history is recommended to evaluate whether the patient may benefit from annual outpatient low-dose screening CT of the chest. 7. Left-sided thyroid nodule measuring 3 cm. Correlation with thyroid function tests and follow-up outpatient thyroid ultrasound is recommended. Chest X-Ray 11/21/23 09:07 IMPRESSION: 1. Increased moderate-large bilateral pleural effusions. 2. Increased bilateral pulmonary edema and/or pneumonitis with increased bibasilar atelectasis. Laboratory Results WBC 8.67 10^3/uL (3.29-11.43) 11/17/23 17:36 RBC 4.78 10^6/uL (3.85-5.65) 11/17/23 17:36 Hgb 15.30 g/dL (11.27-16.99) 11/17/23 17:36 Hct 48.6 % (36-47) H 11/17/23 17:36 MCV 101.7 fl (85-98) H 11/17/23 17:36 MCH 32.0 pg (27-33) 11/17/23 17:36 MCHC 31.5 g/dL (30-55) 11/17/23 17:36 RDW 17.1 % (12.1-15.1) H 11/17/23 17:36 Plt Count 254 10^3/cmm (157-399) 11/17/23 17:36 MPV 10.6 fL (7.4-10.4) H 11/17/23 17:36 Neut % (Auto) 74.8 % 11/17/23 17:36 Lymph % (Auto) 15.1 % 11/17/23 17:36 [place] % (Auto) 9.3 % 11/17/23 17:36 Eos % (Auto) 0.0 % 11/17/23 17:36 Baso % (Auto) 0.2 % 11/17/23 17:36 Neut # (Auto) 6.48 10^3/uL (1.8-7.7) 11/17/23 17:36 Lymph # (Auto) 1.3 10^3/uL (0.8-4.8) 11/17/23 17:36 [place] # (Auto) 0.8 10^3/uL (0.2-0.9) 11/17/23 17:36 Eos # (Auto) 0.0 10^3/uL (0.0-0.8) 11/17/23 17:36 Baso # (Auto) 0.0 10^3/uL (0.0-0.1) 11/17/23 17:36 Nucleated RBC % (auto) 0.7 % 11/17/23 17:36 Nucleated RBCs # 0.1 /100WBC 11/17/23 17:36 Specimen Type Arterial 11/17/23 17:16 Sample Site Radial, left 11/17/23 17:16 ABG pH 7.52 (7.35-7.45) H 11/17/23 17:16 ABG pCO2 58.7 mmHg (35-45) H 11/17/23 17:16 ABG pO2 55.1 mmHg (80.0-100.0) L 11/17/23 17:16 ABG HCO3 47.6 mmol/L (22-26) H 11/17/23 17:16 ABG O2 Saturation 86.2 11/17/23 17:16 ABG Base Excess 20.6 mmol/L (-2.0-2.0) H 11/17/23 17:16 Baljeet Test Pos 11/17/23 17:16 A-a O2 Gradient 3.1 mmHg (5-10) L 11/17/23 17:16 Hematocrit 47.7 % (37-47) H 11/17/23 17:16 Hgb O2 Saturation 84.1 % (95-100) L 11/17/23 17:16 Carboxyhemoglobin 1.8 %THgb (0.4-20.1) 11/17/23 17:16 Methemoglobin 0.6 % (0.4-1.5) 11/17/23 17:16 Total Hemoglobin 15.6 g/dL (12-16) 11/17/23 17:16 Sodium 138.0 mmol/L (131-143) 11/17/23 17:16 Potassium 1.6 mmol/L (3.5-5.0) L 11/17/23 17:16 Glucose 95.0 mg/dL (70-115) 11/17/23 17:16 Ionized Calcium 1.0 mmol/L (1.1-1.4) L 11/17/23 17:16 O2 Delivery Device Nc 11/17/23 17:16 O2 Liters/Min 3.0 % 11/17/23 17:16 Gui Developer ID Walci 11/17/23 17:16 Sodium 140 mmol/L (136-145) 11/17/23 17:36 Potassium 2.2 mmol/L (3.5-5.1) L* 11/17/23 17:36 Chloride 84 mmol/L (98-107) L 11/17/23 17:36 Carbon Dioxide 42 mmol/L (22-29) H* 11/17/23 17:36 Anion Gap 16.2 (5-19) 11/17/23 17:36 BUN 17 mg/dL (8-23) 11/17/23 17:36 Creatinine 0.9 mg/dL (0.5-0.9) 11/17/23 17:36 GFR Calculation 63.9 mL/min (90-130) L 11/17/23 17:36 Glucose 92 mg/dL (65-115) 11/17/23 17:36 Calculated Osmolality 291 mOsm/kg (285-295) 11/17/23 17:36 Calcium 7.6 mg/dL (8.5-10.5) L 11/17/23 17:36 Magnesium 2.0 mg/dL (1.7-2.3) 11/17/23 19:03 Total Bilirubin 2.3 mg/dL (0.15-1.2) H 11/17/23 17:36 AST 143 U/L (0-32) H 11/17/23 17:36 ALT 66 U/L (0-33) H 11/17/23 17:36 Alkaline Phosphatase 126 U/L (35-105) H 11/17/23 17:36 Troponin T Baseline 57 ng/L (0-10) H 11/17/23 17:36 Troponin T 120 Minute 56.28 ng/L (0-10) H 11/17/23 19:03 Delta Troponin T -0.72 ABS# (0-10) L 11/17/23 19:03 Total Protein 5.6 g/dL (6.6-8.7) L 11/17/23 17:36 Albumin 3.2 g/dL (3.5-5.2) L 11/17/23 17:36 Globulin 2.4 g/dL (1.3-4.6) 11/17/23 17:36 Lipase 24 U/L (13-60) 11/17/23 17:36 Urine Color Yellow (Yellow) 11/17/23 19:50 Urine Appearance Sl hazy (CLEAR) A 11/17/23 19:50 Urine pH 6 (5-7) 11/17/23 19:50 Ur Specific [place] 1.015 (1.005-1.030) 11/17/23 19:50 Urine Protein Trace (Negative) 11/17/23 19:50 Urine Glucose (UA) Norm (Normal) 11/17/23 19:50 Urine Ketones 1+ (Negative) H 11/17/23 19:50 Urine Blood Neg (Negative) 11/17/23 19:50 Urine Nitrate Negative (Negative) 11/17/23 19:50 Urine Bilirubin Neg (Negative) 11/17/23 19:50 Urine Urobilinogen 4 mg/dL (Negative) H 11/17/23 19:50 Ur Leukocyte Esterase Negative (Negative) 11/17/23 19:50 Urine RBC None /hpf (0-2) 11/17/23 19:50 Urine WBC 0-4 /hpf (0-5) H 11/17/23 19:50 Ur Squamous Epith Cells 15-25 /hpf (0-5) H 11/17/23 19:50 Amorphous Sediment 1+ /hpf 11/17/23 19:50 Urine Bacteria 1+ /hpf (NONE) H 11/17/23 19:50 Urine Mucus 2+ /hpf 11/17/23 19:50 Adenovirus (PCR) Not detected (NOT DETECT) 11/17/23 17:45 C. pneumoniae DNA (PCR) Not detected (NOT DETECT) 11/17/23 17:45 Coronavirus 229E (PCR) Not detected (NOT DETECT) 11/17/23 17:45 Human Metapneumovir PCR Not detected (NOT DETECT) 11/17/23 17:45 Influenza A (H1) PCR Not detected (NOT DETECT) 11/17/23 17:45 Influ A (H1/09) PCR Not detected (NOT DETECT) 11/17/23 17:45 Influenza A (H3) PCR Not detected (NOT DETECT) 11/17/23 17:45 Influenza Type A (PCR) Not detected (NOT DETECT) 11/17/23 17:45 Influenza Type B (PCR) Not detected (NOT DETECT) 11/17/23 17:45 M. pneumoniae (PCR) Not detected (NOT DETECT) 11/17/23 17:45 Parainfluenza 1 (PCR) Not detected (NOT DETECT) 11/17/23 17:45 Parainfluenza 2 (PCR) Not detected (NOT DETECT) 11/17/23 17:45 Parainfluenza 3 (PCR) Not detected (NOT DETECT) 11/17/23 17:45 Parainfluenza 4 (PCR) Not detected (NOT DETECT) 11/17/23 17:45 RSV Type A (PCR) Not detected (NOT DETECT) 11/17/23 17:45 RSV Type B (PCR) Not detected (NOT DETECT) 11/17/23 17:45 Entero/Rhino (PCR) Not detected (NOT DETECT) 11/17/23 17:45 SARS-CoV-2 (PCR) Not detected (NOT DETECT) 11/17/23 17:45 Discharge Plan Discharge Patient Disposition: Admitted As Inpatient Admit Provider: Nishant Meyer Clinical Impression: Pneumonia, Hypoxemia, Elevated liver transaminase level Condition: Stable Coding Level of Care Code ED Collar Tailor for Chg Fwd Documented by User: Haroon Rahman MD 11/17/23 21:21 HPI - SOB/Dyspnea 2 General: Chief Complaint: Shortness of Breath/Dyspnea Stated Complaint: sent by dr sob, low O2 Time Seen by Provider: 11/17/23 17:18 PFSH ED 2 PFSH: Medical History Rectoperineal fistula Chronic bronchitis with acute exacerbation COPD with hypoxia COPD (chronic obstructive pulmonary disease) with acute bronchitis Family history of colon cancer 09/15/[address] Flaherty with biopsy and repeat colonoscopy in 5 years Neck swelling Dyslipidemia Cervical intraepithelial neoplasia II Urinary incontinence Benign essential hypertension OMID (generalized anxiety disorder) Surgical History Hx of colonoscopy with polypectomy History of vaginal surgery (04/17/20) Posterior colporrhaphy, SIS sling. Dx: Fourth degree rectocele, BRIANNA. Performed [place] Dr. Jimenez [place] [facility] [place], [place] History of bilateral tubal ligation (~2005) H/O hernia repair Family History Mother Ovarian cancer Uterine cancer Colon cancer high risk Grandmother Diabetes maternal Grandfather Hypertension maternal Thyroid disease maternal Social History Smoking and tobacco/nicotine status: current every day tobacco/nicotine user cigarettes Packs smoked per day: 0.75 Alcohol intake: current Alcohol intake frequency: holidays/special occasions only Substance/Drug Use: never Course 2 Vital Signs: Vital signs: Vital Signs Temperature 97.4 F L 11/23/23 04:00 Pulse Rate 91 11/23/23 05:15 Respiratory Rate 16 11/22/23 22:27 Blood Pressure 126/72 11/23/23 04:00 Pulse Oximetry 95 11/23/23 04:00 Oxygen Delivery Me thod Nasal Cannula 11/23/23 04:00 Oxygen Flow Rate 6 11/22/23 22:27 Fraction of Inspir ed Oxygen 40 11/18/23 09:36 MDM - SOB/Dyspnea Medical Decision Making Care signed out to Dr. Rahman at change of shift. See final notes for diagnosis and disposition. I assumed care of the patient from Dr. Vera I did review the patient's CT scan as well as her chest x-ray she was provided IV antibiotics I have contacted the hospitalist physician to request admission. I did review the patient's initial twelve-lead EKG that was obtained at 1717 and there is concern for ST depression in leads V3, V4, V5 and V6 as well as some slight approximately [address] depression in 2 3 and aVF she does remain chest pain-free. A repeat twelve-lead EKG at 20: 58 did demonstrate normal sinus rhythm with a repeat of ST depression in V3 V4 V5 and V6 as well as 2, 3, aVF. I did discuss the EKG findings with the hospitalist I advised him I did provide cardiac dose aspirin and the hospitalist stated that he would treat the patient with Lovenox and would monitor the 6-hour troponin and that he would get a cardiology consult. Patient has remained chest pain-free. I did advise her that we are going to admit her for her pneumonia and continued need for supplemental oxygen and hypoxemia. Medical Records I reviewed the patient's medical records. Lab Data I reviewed the patient's lab results. 11/22/23 05:20 11/23/23 03:18 Labs/Radiology: Radiology Impressions Chest CTA 11/17/23 17:34 IMPRESSION: 1. No evidence of PE or acute aortic abnormality. 2. Mild interstitial pulmonary edema and small-moderate right-sided pleural effusion. No convincing evidence of pneumonia. 3. Dilation of the pulmonary trunk suggesting pulmonary arterial hypertension. 4. Right middle lobe segmental atelectasis. 5. Few prominent mediastinal and enlarged right hilar nodes, favored to be secondary to lymphovascular congestion. Consider follow-up CT of the chest in 4-6 weeks to assess for resolution. 6. Moderate emphysematous changes. Correlation with patient history is recommended to evaluate whether the patient may benefit from annual outpatient low-dose screening CT of the chest. 7. Left-sided thyroid nodule measuring 3 cm. Correlation with thyroid function tests and follow-up outpatient thyroid ultrasound is recommended. Chest X-Ray 11/21/23 09:07 IMPRESSION: 1. Increased moderate-large bilateral pleural effusions. 2. Increased bilateral pulmonary edema and/or pneumonitis with increased bibasilar atelectasis. Laboratory Results WBC 8.67 10^3/uL (3.29-11.43) 11/17/23 17:36 RBC 4.78 10^6/uL (3.85-5.65) 11/17/23 17:36 Hgb 15.30 g/dL (11.27-16.99) 11/17/23 17:36 Hct 48.6 % (36-47) H 11/17/23 17:36 MCV 101.7 fl (85-98) H 11/17/23 17:36 MCH 32.0 pg (27-33) 11/17/23 17:36 MCHC 31.5 g/dL (30-55) 11/17/23 17:36 RDW 17.1 % (12.1-15.1) H 11/17/23 17:36 Plt Count 254 10^3/cmm (157-399) 11/17/23 17:36 MPV 10.6 fL (7.4-10.4) H 11/17/23 17:36 Neut % (Auto) 74.8 % 11/17/23 17:36 Lymph % (Auto) 15.1 % 11/17/23 17:36 [place] % (Auto) 9.3 % 11/17/23 17:36 Eos % (Auto) 0.0 % 11/17/23 17:36 Baso % (Auto) 0.2 % 11/17/23 17:36 Neut # (Auto) 6.48 10^3/uL (1.8-7.7) 11/17/23 17:36 Lymph # (Auto) 1.3 10^3/uL (0.8-4.8) 11/17/23 17:36 [place] # (Auto) 0.8 10^3/uL (0.2-0.9) 11/17/23 17:36 Eos # (Auto) 0.0 10^3/uL (0.0-0.8) 11/17/23 17:36 Baso # (Auto) 0.0 10^3/uL (0.0-0.1) 11/17/23 17:36 Nucleated RBC % (auto) 0.7 % 11/17/23 17:36 Nucleated RBCs # 0.1 /100WBC 11/17/23 17:36 Specimen Type Arterial 11/17/23 17:16 Sample Site Radial, left 11/17/23 17:16 ABG pH 7.52 (7.35-7.45) H 11/17/23 17:16 ABG pCO2 58.7 mmHg (35-45) H 11/17/23 17:16 ABG pO2 55.1 mmHg (80.0-100.0) L 11/17/23 17:16 ABG HCO3 47.6 mmol/L (22-26) H 11/17/23 17:16 ABG O2 Saturation 86.2 11/17/23 17:16 ABG Base Excess 20.6 mmol/L (-2.0-2.0) H 11/17/23 17:16 Baljeet Test Pos 11/17/23 17:16 A-a O2 Gradient 3.1 mmHg (5-10) L 11/17/23 17:16 Hematocrit 47.7 % (37-47) H 11/17/23 17:16 Hgb O2 Saturation 84.1 % (95-100) L 11/17/23 17:16 Carboxyhemoglobin 1.8 %THgb (0.4-20.1) 11/17/23 17:16 Methemoglobin 0.6 % (0.4-1.5) 11/17/23 17:16 Total Hemoglobin 15.6 g/dL (12-16) 11/17/23 17:16 Sodium 138.0 mmol/L (131-143) 11/17/23 17:16 Potassium 1.6 mmol/L (3.5-5.0) L 11/17/23 17:16 Glucose 95.0 mg/dL (70-115) 11/17/23 17:16 Ionized Calcium 1.0 mmol/L (1.1-1.4) L 11/17/23 17:16 O2 Delivery Device Nc 11/17/23 17:16 O2 Liters/Min 3.0 % 11/17/23 17:16 Gui Developer ID Walci 11/17/23 17:16 Sodium 140 mmol/L (136-145) 11/17/23 17:36 Potassium 2.2 mmol/L (3.5-5.1) L* 11/17/23 17:36 Chloride 84 mmol/L (98-107) L 11/17/23 17:36 Carbon Dioxide 42 mmol/L (22-29) H* 11/17/23 17:36 Anion Gap 16.2 (5-19) 11/17/23 17:36 BUN 17 mg/dL (8-23) 11/17/23 17:36 Creatinine 0.9 mg/dL (0.5-0.9) 11/17/23 17:36 GFR Calculation 63.9 mL/min (90-130) L 11/17/23 17:36 Glucose 92 mg/dL (65-115) 11/17/23 17:36 Calculated Osmolality 291 mOsm/kg (285-295) 11/17/23 17:36 Calcium 7.6 mg/dL (8.5-10.5) L 11/17/23 17:36 Magnesium 2.0 mg/dL (1.7-2.3) 11/17/23 19:03 Total Bilirubin 2.3 mg/dL (0.15-1.2) H 11/17/23 17:36 AST 143 U/L (0-32) H 11/17/23 17:36 ALT 66 U/L (0-33) H 11/17/23 17:36 Alkaline Phosphatase 126 U/L (35-105) H 11/17/23 17:36 Troponin T Baseline 57 ng/L (0-10) H 11/17/23 17:36 Troponin T 120 Minute 56.28 ng/L (0-10) H 11/17/23 19:03 Delta Troponin T -0.72 ABS# (0-10) L 11/17/23 19:03 Total Protein 5.6 g/dL (6.6-8.7) L 11/17/23 17:36 Albumin 3.2 g/dL (3.5-5.2) L 11/17/23 17:36 Globulin 2.4 g/dL (1.3-4.6) 11/17/23 17:36 Lipase 24 U/L (13-60) 11/17/23 17:36 Urine Color Yellow (Yellow) 11/17/23 19:50 Urine Appearance Sl hazy (CLEAR) A 11/17/23 19:50 Urine pH 6 (5-7) 11/17/23 19:50 Ur Specific [place] 1.015 (1.005-1.030) 11/17/23 19:50 Urine Protein Trace (Negative) 11/17/23 19:50 Urine Glucose (UA) Norm (Normal) 11/17/23 19:50 Urine Ketones 1+ (Negative) H 11/17/23 19:50 Urine Blood Neg (Negative) 11/17/23 19:50 Urine Nitrate Negative (Negative) 11/17/23 19:50 Urine Bilirubin Neg (Negative) 11/17/23 19:50 Urine Urobilinogen 4 mg/dL (Negative) H 11/17/23 19:50 Ur Leukocyte Esterase Negative (Negative) 11/17/23 19:50 Urine RBC None /hpf (0-2) 11/17/23 19:50 Urine WBC 0-4 /hpf (0-5) H 11/17/23 19:50 Ur Squamous Epith Cells 15-25 /hpf (0-5) H 11/17/23 19:50 Amorphous Sediment 1+ /hpf 11/17/23 19:50 Urine Bacteria 1+ /hpf (NONE) H 11/17/23 19:50 Urine Mucus 2+ /hpf 11/17/23 19:50 Adenovirus (PCR) Not detected (NOT DETECT) 11/17/23 17:45 C. pneumoniae DNA (PCR) Not detected (NOT DETECT) 11/17/23 17:45 Coronavirus 229E (PCR) Not detected (NOT DETECT) 11/17/23 17:45 Human Metapneumovir PCR Not detected (NOT DETECT) 11/17/23 17:45 Influenza A (H1) PCR Not detected (NOT DETECT) 11/17/23 17:45 Influ A (H1/09) PCR Not detected (NOT DETECT) 11/17/23 17:45 Influenza A (H3) PCR Not detected (NOT DETECT) 11/17/23 17:45 Influenza Type A (PCR) Not detected (NOT DETECT) 11/17/23 17:45 Influenza Type B (PCR) Not detected (NOT DETECT) 11/17/23 17:45 M. pneumoniae (PCR) Not detected (NOT DETECT) 11/17/23 17:45 Parainfluenza 1 (PCR) Not detected (NOT DETECT) 11/17/23 17:45 Parainfluenza 2 (PCR) Not detected (NOT DETECT) 11/17/23 17:45 Parainfluenza 3 (PCR) Not detected (NOT DETECT) 11/17/23 17:45 Parainfluenza 4 (PCR) Not detected (NOT DETECT) 11/17/23 17:45 RSV Type A (PCR) Not detected (NOT DETECT) 11/17/23 17:45 RSV Type B (PCR) Not detected (NOT DETECT) 11/17/23 17:45 Entero/Rhino (PCR) Not detected (NOT DETECT) 11/17/23 17:45 SARS-CoV-2 (PCR) Not detected (NOT DETECT) 11/17/23 17:45 All radiology interpretation(s) finalized by discharge Discharge Plan Discharge Patient Disposition: Admitted As Inpatient Admit Provider: Nishant Meyer Clinical Impression: Pneumonia, Hypoxemia, Elevated liver transaminase level Condition: Stable Coding Level of Care Code ED Collar Tailor for Jerson Estrella
[2023-11-17 17:27] LABS: ABG PCO2 58.7 mmHg (35-45); ABG PH Result 7.52 (7.35-7.45); Alveolar-Arterial Oxygen Gradi 3.1 mmHg (5-10); Arterial Blood Gas Hematocrit 47.7 % (37-47); Base Excess ABG 20.6 mmol/L (-2.0-2.0); Blood Gas Allen Test Pos; Blood Gas Operator Identificat WALCI; Blood Gas Sample Site Radial, left; Blood Gas Sample Type Arterial; Carboxyhemoglobin 1.8 %THgb (0.4-20.1); HCO3 ABG 47.6 mmol/L (22-26); HGB O2 Sat 84.1 % (95-100); Methemoglobin 0.6 % (0.4-1.5); Oxygen Device NC; Oxygen Saturation ABG 86.2; PO2 ABG 55.1 mmHg (80.0-100.0); Potassium Level - ABG 1.6 mmol/L (3.5-5.0); Total Hemoglobin 15.6 g/dL (12-16)
--- NOTE | 2023-11-17 17:34 | CTR_ITS ---
PROCEDURE INFORMATION: Exam: CTA Chest With Contrast Exam date and time: 11/17/2023 8:07 PM Age: 58 years old Clinical indication: Shortness of breath; Additional info: Dyspnea/hypoxia TECHNIQUE: Imaging protocol: Computed tomographic angiography of the chest with contrast. Exam focused on the arteries. 3D rendering (Not supervised by radiologist): MIP and/or 3D reconstructed images were created by the technologist. Radiation optimization: All CT scans at this facility use at least one of these dose optimization techniques: automated exposure control; mA and/or kV adjustment per patient size (includes targeted exams where dose is matched to clinical indication); or iterative reconstruction. Contrast material: OMNI 350; Contrast volume: 75 ml; Contrast route: INTRAVENOUS (IV); COMPARISON: CR (CHEST, ) 11/17/2023 5:25 PM RADIATION DOSE METRICS: Total DLP (mGy-cm): 377 FINDINGS: Pulmonary arteries: No evidence of pulmonary thromboembolism. Dilation of the pulmonary trunk to 3.5 cm suggesting pulmonary arterial hypertension. Aorta: No evidence of aneurysmal dilatation or dissection of the thoracic aorta. Thyroid: 3 cm left-sided thyroid nodule. Correlation with thyroid function tests and follow-up outpatient thyroid ultrasound is recommended. Lungs: There is right middle lobe segmental atelectasis. Mild interstitial pulmonary edema on the right. No convincing evidence of pneumonia. Moderate emphysematous changes. Right upper lobe anterior subsegmental atelectasis. Pleural spaces: Small-moderate right-sided pleural effusion. Trace left-sided pleural effusion. No pneumothorax. Heart: Mild cardiomegaly. No pericardial effusion. Mediastinal space: No evidence of mediastinal mass, fluid collection or hematoma. Lymph nodes: There are few prominent mediastinal and enlarged right hilar nodes, favored to be secondary to lymphovascular congestion. Consider follow-up CT of the chest in 4-6 weeks to assess for resolution. Bones/joints: No evidence of acute fracture or aggressive osseous lesion. Soft tissues: No evidence of fluid collection or hematoma in the superficial soft tissues. Other findings: No evidence of acute abnormality in the upper abdomen. Status post cholecystectomy with mild biliary dilatation and pneumobilia. 5 cm left hepatic lobe cyst noted. CT/CT angio chest PE protcl [id number] IMPRESSION: 1. No evidence of PE or acute aortic abnormality. 2. Mild interstitial pulmonary edema and small-moderate right-sided pleural effusion. No convincing evidence of pneumonia. 3. Dilation of the pulmonary trunk suggesting pulmonary arterial hypertension. 4. Right middle lobe segmental atelectasis. 5. Few prominent mediastinal and enlarged right hilar nodes, favored to be secondary to lymphovascular congestion. Consider follow-up CT of the chest in 4-6 weeks to assess for resolution. 6. Moderate emphysematous changes. Correlation with patient history is recommended to evaluate whether the patient may benefit from annual outpatient low-dose screening CT of the chest. 7. Left-sided thyroid nodule measuring 3 cm. Correlation with thyroid function tests and follow-up outpatient thyroid ultrasound is recommended.
[2023-11-17] MEDS: ipratropium-albuterol 3 mL Neb INHALATION (17:35)
[2023-11-17] MEDS: dexamethasone 10 mg/mL INJ IM (17:41)
[2023-11-17 17:53] LABS: Basophils % 0.2 %; Hematocrit 48.6 % (36-47); Lymphocytes # 1.3 10^3/uL (0.8-4.8); Lymphocytes % 15.1 %; Mean Corpuscular HGB Conc 31.5 g/dL (30-55); Mean Corpuscular Volume 101.7 fl (85-98); Mean Platelet Volume 10.6 fL (7.4-10.4); Monocytes # 0.8 10^3/uL (0.2-0.9); Monocytes % 9.3 %; Neutrophils # 6.48 10^3/uL (1.8-7.7); Neutrophils % 74.8 %; Nucleated Red Blood Cells # 0.1 /100WBC; Nucleated Red Blood Cells % 0.7 %; Platelet Count 254 10^3/cmm (157-399); Red Blood Count 4.78 10^6/uL (3.85-5.65); Red Cell Distribution Width 17.1 % (12.1-15.1); White Blood Count 8.67 10^3/uL (3.29-11.43)
[2023-11-17 18:16] LABS: Alanine Aminotransferase 66 U/L (0-33); Albumin Level 3.2 g/dL (3.5-5.2); Alkaline Phosphatase 126 U/L (35-105); Anion Gap 16.2 (5-19); Aspartate Amino Transferase 143 U/L (0-32); Blood Urea Nitrogen 17 mg/dL (8-23); Calcium 7.6 mg/dL (8.5-10.5); Chloride 84 mmol/L (98-107); Globulin 2.4 g/dL (1.3-4.6); Glomerular Filtration Rate 63.9 mL/min (90-130); Glucose 92 mg/dL (65-115); Osmolality Calculated 291 mOsm/kg (285-295); Sodium 140 mmol/L (136-145); Total Bilirubin 2.3 mg/dL (0.15-1.2); Total Protein 5.6 g/dL (6.6-8.7); Troponin(5th) Baseline 57 ng/L (0-10)
[2023-11-17 18:19] LABS: Carbon Dioxide 42 mmol/L (22-29); Potassium 2.2 mmol/L (3.5-5.1)
[2023-11-17 18:41] LABS: Lipase 24 U/L (13-60)
--- NOTE | 2023-11-17 19:19 | ECG_ITS ---
[facility] Test Date: 2023-11-17 Pat Name: Linda Alejandra Department: Room: Gender: Female Gas Mask Inspector: : 1965 Requested By: Graeme Varela Order Number: [id number] Sherrie MD: Abdifatah Jay M.D. Measurements Intervals [place] Rate: 69 P: 58 TN: 141 QRS: 90 QRSD: 105 T: 252 QT: 430 QTc: 463 Interpretive Statements SINUS RHYTHM LEFT ATRIAL ENLARGEMENT [-0.15mV P-WAVE IN V1/V2] ST DEVIATION AND MODERATE T-WAVE ABNORMALITY, CONSIDER ANTEROLATERAL ISCHEMIA [-0.1+ mV T-WAVE IN V3-V6] ST DEVIATION AND MODERATE T-WAVE ABNORMALITY, CONSIDER INFERIOR ISCHEMIA [-0.1+ mV T-WAVE IN II/aVF] Compared to ECG 11/17/2023 17:17:39 Ventricular premature complex(es) no longer present T-wave abnormality still present Possible ischemia still present Electronically Signed On 11-18-2023 15:48:07 CONSUMER LOAN PROCESSOR by Abdifatah Jay M.D. [email or web address] ([email or web address] [id number]
[2023-11-17] MEDS: levofloxacin-dextrose 5 % 750 MG/150 ML PREMIX 100 MG IV (19:35)
[2023-11-17 19:48] LABS: Troponin 5 2HR 56.28 ng/L (0-10); Troponin 5 2HR Delta -0.72 ABS# (0-10)
[2023-11-17 20:05] LABS: Adenovirus Not Detected (NOT DETECT); Chlamydia Pneumoniae Not Detected (NOT DETECT); Coronavirus 229E,HKU1,NL63,OC4 Not Detected (NOT DETECT); Human Metapneumovirus Not Detected (NOT DETECT); Human Rhinovirus/Enterovirus Not Detected (NOT DETECT); Influenza A Not Detected (NOT DETECT); Influenza A H1 Not Detected (NOT DETECT); Influenza A H1-2009 Not Detected (NOT DETECT); Influenza A H3 Not Detected (NOT DETECT); Influenza B Not Detected (NOT DETECT); Mycoplasma Pneumoniae Not Detected (NOT DETECT); Parainfluenza Virus Type 1 Not Detected (NOT DETECT); Parainfluenza Virus Type 2 Not Detected (NOT DETECT); Parainfluenza Virus Type 3 Not Detected (NOT DETECT); Parainfluenza Virus Type 4 Not Detected (NOT DETECT); Respiratory Syncytial Virus A Not Detected (NOT DETECT); Respiratory Syncytial Virus B Not Detected (NOT DETECT); SARS-COV-2 Not Detected (NOT DETECT)
[2023-11-17] MEDS: iohexol 350 mg/mL 500 mL Btl (per mL) IV (20:12)
[2023-11-17 20:56] LABS: Add Urine Microscopic? YES; Bacteria Urine 1+ /hpf; Bilirubin Urine Neg (Negative); Blood Urine Neg (Negative); Glucose Urine UA Norm (Normal); Ketones Urine 1+ (Negative); Leukocyte Esterase Urine Negative (Negative); Mucus Urine 2+ /hpf; Nitrate Urine Negative (Negative); Protein Urine Trace (Negative); Specific Gravity, Urine 1.015 (1.005-1.030); Squamous Epithelial Cell Urine 15-25 /hpf (0-5); Urine Appearance SL Hazy (CLEAR); Urine Color Yellow (Yellow); Urobilinogen Urine 4 mg/dL (Negative); WBC Urine 0-4 /hpf (0-5); pH Urine 6 (5-7)
[2023-11-17 20:57] LABS: Add Urine Culture? No; Amorphous Sediment Urine 1+ /hpf
[2023-11-17] MEDS: aspirin 81 mg Chew Tablet 324 MG PO (21:42)
[2023-11-17] MEDS: potassium chloride premix 100 ML 25 MEQ IV (21:45)
[2023-11-17 22:31] LABS: Glucose Point of Care 139 mg/dL (70-110)
[2023-11-17] MEDS: fentaNYL 1,000 MCG/100 ML BAG 2.5 MCG IV (23:00)
[2023-11-17 23:10] LABS: Troponin 5 6HR 57.66 ng/L (0-10); Troponin 5 6HR Delta 0.66 ng/L (0-12)
--- NOTE | 2023-11-17 23:19 | ECG_ITS ---
[facility] Test Date: 2023-11-17 Pat Name: Linda Alejandra Department: Room: ICU01 Gender: Female Computer Programming Manager: : 1965 Requested By: Graeme Varela Order Number: [id number] Sherrie MD: Abdifatah Jay M.D. Measurements Intervals [place] Rate: 114 P: 68 MT: 182 QRS: 92 QRSD: 92 T: 75 QT: 400 QTc: 551 Interpretive Statements SINUS TACHYCARDIA WITH FREQUENT ECTOPIC PREMATURE COMPLEXES RIGHT ATRIAL ENLARGEMENT [0.3mV P-WAVE] LEFT ATRIAL ENLARGEMENT [-0.15mV P-WAVE IN V1/V2] RIGHT VENTRICULAR HYPERTROPHY [SOME/ALL OF: PROMINENT R IN V1, LATE TRANSITION, RAD, ABHINAV, SSS] ST DEVIATION AND MODERATE T-WAVE ABNORMALITY, CONSIDER ANTERIOR ISCHEMIA [-0.1+ mV T-WAVE IN V3/V4] INTERPRETATION BASED ON A DEFAULT AGE OF 40 YEARS Compared to ECG 11/17/2023 20:58:22 T-wave abnormality still present Possible ischemia still present Electronically Signed On 11-18-2023 15:48:00 ADJUNCT INSTRUCTOR IN ECONOMICS by Abdifatah Jay M.D. [id number]
--- NOTE | 2023-11-17 23:22 | XRR_ITS ---
PROCEDURE INFORMATION: Exam: XR Chest Exam date and time: 11/17/2023 11:30 PM Age: 58 years old Clinical indication: Device placement; Other: Et placement and og verification TECHNIQUE: Imaging protocol: Radiologic exam of the chest. Views: 1 view. COMPARISON: CT angio chest PE protcl [id number] 11/17/2023 8:07 PM FINDINGS: Tubes, catheters and devices: An endotracheal tube ends midway between the clavicles and georgette. A nasogastric tube ends in the stomach. Lungs: The lungs are clear. Pleural spaces: Unremarkable. No pleural effusion. No pneumothorax. Heart/Mediastinum: Unremarkable. No cardiomegaly. Bones/joints: Unremarkable. Soft tissues: Epicardial pacing pads overlie the heart. XR/XR chest 1V portable [id number] IMPRESSION: 1. Lungs clear 2. Tubes and catheters as described
--- NOTE | 2023-11-17 23:25 | P.HP_ITS ---
Providers/Chief Complaint 2 Admitting Physician: Nishant Meyer Primary Care Provider: Michael Stafford MD Chief Complaint: sent by , sob, low O2 History of Present Illness With history of COPD, HLD, HTN, OMID, current smoking, was referred to emergency department from [facility] where she was found to be hypoxic, saturating 40s have high 50s, where she came in with dyspnea, in ER she was started on oxygen support, ABG was obtained, appeared to be in compensated hypercapnia, chest x- ray initially suggestive of possible pneumonia, she was given a dose of Levaquin, respiratory viral panel was obtained and was negative. Baseline troponin anterior transfer noted moderately elevated up to 57-56.28. She was additionally assessed with CT angiogram chest which did not show PE but did show mild interstitial pulmonary edema small to moderate right-sided pleural effusion. No convincing evidence for pneumonia. Noted dilated pulmonary trunk suggestive of pulmonary hypertension. Right middle lobe segmental atelectasis. Incidentally noted emphysema, as well as few prominent venous tunnel and right hilar lymph nodes. Consider follow-up CT in 4 to 6 weeks to assess for resolution. Additionally steadily found to have left-sided thyroid nodule 3 cm in size. Hypokalemia 2.2, potassium was requested. In ER she additionally received a dose of Decadron, breathing treatment. Continue with oxygen support. Shortly after arrival on [facility] DAI VALENTE was called after she was noted to have developed ventricular fibrillation. CPR was initiated, she received defibrillation after pads were switched out with first set found defective, and responded with ROSC. Subsequently with additional episode of ventricular fibrillation, additional defibrillation, brief CPR, started moving, regain ROSC, however, did not return to alertness, discussed w resonding ER physician and was intubated and transferred to intensive care unit. For lead EKG obtained immediately after resuscitation with questionable ST findings in V3-V4. Presentation and EKG discussed with cardiology, no finding of STEMI, but cardiology will follow-up. Her daughter was contacted and condition and plans discussed and they are in agreement. In the ICU she is more alert, answering questions. Denies pain or discomfort. Denies chest pain. She is now lucid, her, with recent hypoxia, currently with severely diminished lung sounds, thick beige purulent appearing sputum, as well as currently still on high FiO2, for now continues with mechanical ventilatory support. She is noted also to have hyperbilirubinemia, transaminitis with 2-1 pattern AST to ALT, she states that she has not had any right upper quadrant pain. Is no tenderness on palpation. She states that she has 3-4 shots of hard liquor on the weekends. Denies any daily EtOH. Review of Systems 2 General: Reports: ROS unobtainable due to medical condition (As above. ) Medications/Allergies Home Medications Medication Instructions Recorded Confirmed Last Taken Type atorvastatin 10 mg tablet 10 mg PO DAILY #90 tabs 07/22/23 11/17/23 Unknown Rx cholecalciferol (vitamin D3) 1,250 50,000 unit PO .ONCE WEEKLY #12 07/22/23 11/17/23 Unknown Rx mcg (50,000 unit) capsule caps guaifenesin 600 mg tablet, 600 mg PO BID PRN congestion/cough 07/22/23 11/17/23 Unknown Rx extended release 12 hr #60 tabs ibuprofen 600 mg tablet 600 mg PO Q6H PRN fever or pain 07/22/23 11/17/23 Unknown Rx #60 tabs lisinopril 20 mg tablet 20 mg PO DAILY #90 tabs 07/22/23 11/17/23 Unknown Rx sertraline 100 mg tablet (Zoloft) 100 mg PO DAILY #90 tabs 07/22/23 11/17/23 Unknown Rx sertraline 50 mg tablet (Zoloft) 50 mg PO DAILY #90 tabs 07/22/23 11/17/23 Unknown Rx albuterol sulfate 90 mcg/actuation 2 inh inhalation Q4H PRN shortness 08/21/23 11/17/23 Unknown Rx aerosol inhaler of breath or wheezing #6.7 grams amlodipine 10 mg tablet (Norvasc) 10 mg PO DAILY #90 tabs 08/21/23 11/17/23 Unknown Rx Allergies Allergy/AdvReac Type Severity Reaction Status Date / Time Penicillins AdvReac Mild hives, Verified 11/17/23 16:27 itching PFSH Acute 2 PFSH: Medical History Rectoperineal fistula Chronic bronchitis with acute exacerbation COPD with hypoxia COPD (chronic obstructive pulmonary disease) with acute bronchitis Family history of colon cancer 09/15/[address] Flaherty with biopsy and repeat colonoscopy in 5 years Neck swelling Dyslipidemia Cervical intraepithelial neoplasia II Urinary incontinence Benign essential hypertension OMID (generalized anxiety disorder) Surgical History Hx of colonoscopy with polypectomy History of vaginal surgery (04/17/20) Posterior colporrhaphy, SIS sling. Dx: Fourth degree rectocele, BRIANNA. Performed [place] Dr. Jimenez at [facility] in [place], [place] History of bilateral tubal ligation (~2005) H/O hernia repair Family History Mother Ovarian cancer Uterine cancer Colon cancer high risk Grandmother Diabetes maternal Grandfather Hypertension maternal Thyroid disease maternal Social History Smoking and tobacco/nicotine status: current every day tobacco/nicotine user cigarettes Packs smoked per day: 0.75 Alcohol intake: current Alcohol intake frequency: holidays/special occasions only Substance/Drug Use: never Vitals/I&O/Wt Last Vital Signs Temp 98.1 F 11/17/23 22:04 Pulse 71 11/17/23 22:04 Resp 20 H 11/17/23 22:56 BP 144/74 11/17/23 22:04 Pulse Ox 94 11/17/23 22:56 O2 Del Method BiPAP 11/17/23 21:20 O2 Flow Rate 4 11/17/23 19:37 FiO2 100 11/17/23 22:56 11/17/23 11/17/23 11/18/23 14:59 22:59 06:59 Intake Total 150 / 150 Balance 150 / 150 Weight last 48 hrs Weight 74.162 kg Weight 72.575 kg Physical Exam 2 Const: GENERAL APPEARANCE: patient mechanically ventilated O RIENTATION/CONSCIOUSNESS: Yes awake HENMT: COMMON NORMALS: oropharynx normal Neck/C-Spine: COMMON NORMALS: no JVD Resp: AUSCULTATION: wheezes and diminished lung sounds Cardio: COMMON NORMALS: no JVD, regular rhythm, S1 normal heart sound present, S2 normal heart sound present and No murmurs present (Cardio) RHYTHM: regular rhythm HEART SOUNDS: S1 normal heart sound present and S2 normal heart sound present GI: COMMON NORMALS: Normal to inspection, nondistended, normoactive bowel sounds present, Soft to palpation and non-tender PALPATION: Yes Soft to palpation Extremity: COMMON NORMALS: no joint enlargement and no pedal edema Neuro: COMMON NORMALS: patient oriented x3 and moves all extremities S ENSORIUM/ORIENTATION: Yes alert Skin: COMMON NORMALS: no rashes or lesions noted GENERAL SKIN EXAM: no rashes or lesions noted Data 11/17/23 17:36 11/17/23 17:36 Micro: Microbiology 11/17/23 19:08 Blood Culture - Preliminary Blood SPECIMEN COLLECTED 11/17/23 19:03 Blood Culture - Preliminary Blood SPECIMEN COLLECTED A&P Assessment and plan (1) Acute respiratory failure with hypoxia: Reviewed vitals, CBC, ABG, CMP, troponin series, EKG, lipase, UA, respiratory viral panel, chest x-ray, CTA, ER note, discussed with ER physician. No PE noted on CTA. Noted some interstitial edema. Question of early congestive heart failure? Assessed at TTE after cardiac arrest. Severe COPD exacerbation, severely diminished air entry, wheezing, purulent appearing copious sputum samples after intubation. Sputum culture requested. She received a dose of Levaquin. Noted some QTc prolongation initial EKG, for now we will switch antibiotic. Noted penicillin allergy. Will give aztreonam for now. Solu- Medrol. Breathing treatments. Pulmonary toilet. At current time continue mechanical ventilatory support, vent settings adjusted, continue decreasing FiO2 support as tolerating. PEEP currently 5. FiO2 down to 95, continue to titrate down. Discussed with RT. (2) COPD exacerbation: Severe exacerbation as above. (3) Cardiac arrest: V-fib arrest shortly after arrival on CSU. Reviewed troponin series, EKG, moderate elevation, has not had any chest pain, no chest pain currently after cardiac arrest. Noted ST depressions on EKG previously. Questionable V3-for ST EKGs reviewed, abnormality postcode, discussed with cardiology and presentation reviewed. Not assessed to have STEMI at current time. Initiated on NSTEMI therapeutics including anticoagulation, continue aspirin, hold off beta-blockers for now as blood pressure soft with sedation. Obtain stat TTE. Cardiology consultation. She does have coronary artery disease risks including current smoking, will benefit from cessation, HTN, HLD, will benefit from further risk stratification, consideration of angiographic evaluation. Monitor on telemetry. Discussed with her daughter risk of recurrence of arrhythmia at this time. Starting amiodarone as per discussion with cardiology. Would also discontinue/avoid NSAIDs. (4) Ventricular fibrillation: Refill brace as above. (5) Transaminitis: Hyperbilirubinemia, transaminitis with to 1 pattern, she reports 3-4 shots of hard liquor on the weekend, denies daily alcohol. Unclear if possibility of alcoholic hepatitis or other cause. Hold statin for now. Check CK. Please discuss further with regards to her EtOH habits. For now we will also add CIWA protocol with concern for risk of withdrawal. Check INR. Assess moderate discriminant. Follow-up liver parameters. She denies any other upper quadrant pain. Segal is negative. Will obtain hepatobiliary ultrasound. Check fractional bilirubin. Plan HLD, hold statin for now. Check CK. Reassess transaminitis. HTN, blood pressure soft for now with sedation, hold off on antihypertensives for now. Monitor blood pressures. OMID, Current smoking: Nicotine patch. Encourage smoking cessation. Attestations 2 Medical Necessity Statement*: Admission over 2 midnights anticipated for assessment of management of respiratory failure, severe exacerbation of COPD, V-fib arrest. Coding Level of Care Code Critical Care >/= 30 minutes Critical care time (in minutes): 60 The high probability of a clinically significant, sudden or life threatening deterioration, as referenced in this documentation, required my full and direct attention, intervention and personal management. The critical care time shown is in addition to time spent performing any reported separately billable procedures and includes the following: [x] Data and vital sign review and interpretation [x ] Patient assessment, examination and intervention [x] Medication orders and management [x] Patient/Family updates as able [x] Care Coordination and Documentation. Diagnoses Acute respiratory failure with hypoxia J96.01 COPD exacerbation J44.1 Cardiac arrest I46.9 Ventricular fibrillation I49.01 Transaminitis R74.01
--- NOTE | 2023-11-17 23:29 | PC.NURSE ---
While doing admission assessment patient went into V. tach/ V. Fib. Patient became unresponsive, no pulse. Began compressions, placed Zoll pads. Code team arrived and took over compression, MD and respiratory present. Contacted patients daughter. ROSC obtained, transferred to ICU.
[2023-11-17 23:35] LABS: Alanine Aminotransferase 65 U/L (0-33); Albumin Level 3.1 g/dL (3.5-5.2); Alkaline Phosphatase 141 U/L (35-105); Aspartate Amino Transferase 143 U/L (0-32); Blood Urea Nitrogen 15 mg/dL (8-23); Calcium 7.7 mg/dL (8.5-10.5); Carbon Dioxide 31 mmol/L (22-29); Chloride 83 mmol/L (98-107); Globulin 3.6 g/dL (1.3-4.6); Glomerular Filtration Rate 73.2 mL/min (90-130); Glucose 167 mg/dL (65-115); Osmolality Calculated 289 mOsm/kg (285-295); Sodium 137 mmol/L (136-145); Total Bilirubin 1.8 mg/dL (0.15-1.2); Total Protein 6.7 g/dL (6.6-8.7)
[2023-11-17 23:40] LABS: Anion Gap 26.4 (5-19); Potassium 3.4 mmol/L (3.5-5.1)
[2023-11-17] MEDS: propofol 1,000 MG/100 ML INJ 2.23 MG IV (23:40)
[2023-11-17] MEDS: pantoprazole 40 mg SDV IVP (23:53)
[2023-11-17] MEDS: amiodarone 150 MG/100 ML PREMIX 400 MG IV (23:58)
[2023-11-18] VITALS (100 sets, daily range): BP systolic 83–181; BP diastolic 43–84; PULSE 51–94; RESP 11–18; TEMP 36.5–36.9; O2SAT 88–100
[2023-11-18] MEDS: methylPREDNISolone sod succ 40 mg/mL INJ IVP ×4 (00:02→11:00)
[2023-11-18] MEDS: enoxaparin 80 mg/0.8 mL Syringe 70 MG SUBCUT ×3 (00:13→23:45)
[2023-11-18] MEDS: nicotine 21 mg Patch 1 PATCH TRANSDERMA ×2 (00:13→09:07)
[2023-11-18 00:21] LABS: INR 1.08 (0.8-1.2)
[2023-11-18] MEDS: succinylcholine 20 mg/mL SDV 10mL 100 MG IVP (00:30)
[2023-11-18] MEDS: etomidate 2 mg/mL INJ SDV 10 mL 10 MG IVP (00:30)
[2023-11-18] MEDS: ipratropium 0.5 mg/2.5 mL Neb INHALATION ×5 (00:41→20:03)
[2023-11-18] MEDS: levalbuterol 0.63 mg/3 mL Neb INHALATION ×5 (00:41→20:03)
[2023-11-18 01:31] LABS: Creatine Phosphokinase 207 U/L (26-192)
--- NOTE | 2023-11-18 01:54 | PC.NURSE ---
Patient arrived on unit @2240 intubated without sedation. Patient was transferred to ICU bed and began to arouse to stimuli and verbal command. Patient was started on Propofol and Fentanyl as available to help with anxiety/pain and tachypnea. BP monitored closely and titrated accordingly. Restraints applied due to patient's ability to grab at tubes/lines. OG and navarro placed. Stat Chest Xray ordered to confirm ET/OG placement. Family updated and allowed to see patient as appropriate. Patient displayed signs of bradycardia <60 and Hospitalist gave verbal order to hold Amiodarone bolus. Bag was scanned but not spiked. Sufficient IV access obtained to continue sedation and K+ replacement.
[2023-11-18] MEDS: potassium chloride premix 100 ML 25 MEQ IV (02:49)
--- NOTE | 2023-11-18 03:16 | PC.NURSE ---
Patient resting comfortably on 15 of prop and 125 of Fent. Able to arouse to verbal stimulation and follow commands. Map maintaining >65. Heart rate occasionally drops into the 50s with signs of a junctional block. Versed not required at this point.
[2023-11-18 04:55] LABS: Basophils % 0.2 %; Hematocrit 48.8 % (36-47); Lymphocytes # 0.6 10^3/uL (0.8-4.8); Mean Corpuscular Hemoglobin 31.3 pg (27-33); Mean Platelet Volume 10.7 fL (7.4-10.4); Monocytes # 0.2 10^3/uL (0.2-0.9); Monocytes % 1.9 %; Neutrophils # 11.28 10^3/uL (1.8-7.7); Neutrophils % 91.8 %; Nucleated Red Blood Cells # 0.1 /100WBC; Nucleated Red Blood Cells % 0.4 %; Platelet Count 259 10^3/cmm (157-399); Red Blood Count 4.98 10^6/uL (3.85-5.65); Red Cell Distribution Width 17.2 % (12.1-15.1); White Blood Count 12.29 10^3/uL (3.29-11.43)
[2023-11-18 05:10] LABS: Alanine Aminotransferase 58 U/L (0-33); Albumin Level 2.9 g/dL (3.5-5.2); Alkaline Phosphatase 122 U/L (35-105); Anion Gap 16.9 (5-19); Aspartate Amino Transferase 107 U/L (0-32); Blood Urea Nitrogen 14 mg/dL (8-23); Calcium 7.2 mg/dL (8.5-10.5); Carbon Dioxide 40 mmol/L (22-29); Chloride 87 mmol/L (98-107); Globulin 3.5 g/dL (1.3-4.6); Glomerular Filtration Rate 85.4 mL/min (90-130); Glucose 145 mg/dL (65-115); Osmolality Calculated 297 mOsm/kg (285-295); Sodium 142 mmol/L (136-145); Total Bilirubin 1.3 mg/dL (0.15-1.2); Total Protein 6.4 g/dL (6.6-8.7)
[2023-11-18 05:13] LABS: Potassium 1.9 mmol/L (3.5-5.1)
[2023-11-18 05:23] LABS: Thyroid Stimulating Hormone 2.37 uIU/mL (0.27-4.20)
[2023-11-18] MEDS: fentaNYL 1,000 MCG/100 ML BAG 12.5 MCG IV (05:29)
[2023-11-18 05:37] LABS: ABG PCO2 58.9 mmHg (35-45); ABG PH Result 7.49 (7.35-7.45); Alveolar-Arterial Oxygen Gradi 42.3 mmHg (5-10); Arterial Blood Gas Hematocrit 50.1 % (37-47); Base Excess ABG 17.7 mmol/L (-2.0-2.0); Blood Gas Allen Test Pos; Blood Gas Operator Identificat JB; Blood Gas Sample Site Radial, right; Blood Gas Sample Type Arterial; Carboxyhemoglobin 0.2 %THgb (0.4-20.1); HCO3 ABG 44.9 mmol/L (22-26); HGB O2 Sat 97.5 % (95-100); Methemoglobin 0.6 % (0.4-1.5); Oxygen Device VENT; Oxygen Saturation ABG 98.4; PO2 FiO2 Ratio Arterial Blood 0; Potassium Level - ABG 1.8 mmol/L (3.5-5.0); Total Hemoglobin 16.3 g/dL (12-16)
--- NOTE | 2023-11-18 08:12 | PC.PHAR ---
PT UNABLE TO VERIFY MEDICATIONS-FAMILY REQUESTED WE CONTACT PHARMACY FOR CORRECT MED LIST. VERIFIED WITH MAMIE RAMIREZ 11/18/23
--- NOTE | 2023-11-18 08:45 | P.CONIM_ITS ---
Providers/Reason For Consult 2 Consulting Physician/Specialty*: Abdifatah Jay MD/ Cardiology Reason for Consult*: Ventricular fibrillation Requesting Physician: Dr Franklin Attending Physician: Irene Mullen MD Primary Care Provider: Michael Stafford MD History of Present Illness History of Present Illness Linda Alejandra is a 58 year old female with no significant prior cardiac history, has history of COPD, hypertension and hyperlipidemia who presented to hospital with worsening shortness of breath. She was treated for COPD exacerbation and possible pneumonia. Initial EKG showed ST depressions in inferior leads and anterolateral leads. Overnight she went into ventricular fibrillation. CPR was performed and ROSC was obtained. She was intubated. Still on ventilator. However she is awake and alert. Denies chest pain. Troponins were mildly elevated and did not trend up. ECHO shows normal LV systolic function. Potassium level is significantly low at 2.3. Getting replacement. Review of Systems 2 General: Reports: ROS unobtainable due to endotracheal tube Medications/Allergies Home Medications Medication Instructions Recorded Confirmed Last Taken Type atorvastatin 10 mg tablet 10 mg PO DAILY #90 tabs 07/22/23 11/18/23 Unknown Rx lisinopril 20 mg tablet 20 mg PO DAILY #90 tabs 07/22/23 11/18/23 Unknown Rx sertraline 100 mg tablet (Zoloft) 100 mg PO DAILY #90 tabs 07/22/23 11/18/23 Unknown Rx sertraline 50 mg tablet (Zoloft) 50 mg PO DAILY #90 tabs 07/22/23 11/18/23 Unknown Rx albuterol sulfate 90 mcg/actuation 2 inh inhalation Q4H PRN shortness 08/21/23 11/18/23 Unknown Rx aerosol inhaler of breath or wheezing #6.7 grams amlodipine 10 mg tablet (Norvasc) 10 mg PO DAILY #90 tabs 08/21/23 11/18/23 Unknown Rx Allergies Allergy/AdvReac Type Severity Reaction Status Date / Time Penicillins AdvReac Mild hives, Verified 11/17/23 16:27 itching Current Medications Generic Name Dose Route Start Last Admin Trade Name Freq PRN Reason Stop Dose Admin Enoxaparin Sodium 70 mg 11/17/23 23:15 11/18/23 00:13 Enoxaparin 80 Mg/0.8 Ml Syringe SUBCUT 70 mg Q12H OLGA Administration Propofol 1,000 mg in 100 mls @ 0 mls/hr 11/17/23 23:00 11/18/23 00:30 Diprivan IV 15 mcg/kg/min .Q0M OLGA 6.68 mls/hr Titration Protocol Per Protocol Fentanyl 1,000 mcg in 100 mls @ 0 mls/hr 11/17/23 23:00 11/18/23 05:29 Sublimaze IV 125 mcg/hr .Q0M OLGA 12.5 mls/hr Administration Protocol Per Protocol Ipratropium [place] 0.5 mg 11/18/23 00:00 11/18/23 07:49 Ipratropium 0.5 Mg/2.5 Ml Neb INHALATION 0.5 mg Q4H.RESPIRATORY OLGA Administration Levalbuterol HCl 0.63 mg 11/17/23 23:06 11/18/23 07:49 Levalbuterol 0.63 Mg/3 Ml Neb INHALATION 0.63 mg Q4H.RESPIRATORY PRN Administration SHORTNESS OF BREATH Methylprednisolone Sodium Succinate 40 mg 11/17/23 23:15 11/18/23 07:20 Methylprednisolone Sod Succ 40 Mg/Ml Inj IVP 40 mg Q4H OLGA Administration Nicotine 1 patch 11/17/23 23:55 11/18/23 00:13 Nicotine 21 Mg Patch TRANSDERMA 1 patch DAILY OLGA Administration Pantoprazole Sodium 40 mg 11/17/23 23:15 11/17/23 23:53 Pantoprazole 40 Mg Sdv IVP 40 mg Q24H OLGA Administration PFSH Acute 2 PFSH: Medical History Rectoperineal fistula Chronic bronchitis with acute exacerbation COPD with hypoxia COPD (chronic obstructive pulmonary disease) with acute bronchitis Family history of colon cancer 09/15/[address] Flaherty with biopsy and repeat colonoscopy in 5 years Neck swelling Dyslipidemia Cervical intraepithelial neoplasia II Urinary incontinence Benign essential hypertension OMID (generalized anxiety disorder) Surgical History Hx of colonoscopy with polypectomy History of vaginal surgery (04/17/20) Posterior colporrhaphy, SIS sling. Dx: Fourth degree rectocele, BRIANNA. Per[place] by Dr. Jimenez at [facility] [place], [place] History of bilateral tubal ligation (~2005) H/O hernia repair Family History Mother Ovarian cancer Uterine cancer Colon cancer high risk Grandmother Diabetes maternal Grandfather Hypertension maternal Thyroid disease maternal Social History Smoking and tobacco/nicotine status: current every day tobacco/nicotine user cigarettes Packs smoked per day: 0.75 Alcohol intake: current Alcohol intake frequency: holidays/special occasions only Substance/Drug Use: never Vitals/I&O/Wt Last Vital Signs Temp 98.1 F 11/18/23 01:40 Pulse 69 11/18/23 08:30 Resp 14 11/18/23 07:35 BP 100/62 11/18/23 08:30 Pulse Ox 90 11/18/23 08:30 O2 Del Method Mechanical Ventilation 11/18/23 07:30 O2 Flow Rate 4 11/17/23 19:37 FiO2 50 11/18/23 07:35 11/17/23 11/18/23 11/18/23 22:59 06:59 14:59 Intake Total 150 / 150 166.778 / 316.778 0 / 0 Output Total 375 / 375 Balance 150 / 150 -208.222 / -58.222 0 / 0 Weight last 48 hrs Weight 163 lb Weight 163 lb Weight 163 lb 8 oz Weight 160 lb Physical Exam 2 Narrative: GENERAL: Patient is alert, awake but intubated. Responds appropriately NECK: No jugular vein distension. [] HEENT: No cyanosis. No icterus. No pallor. [] HEART: Regular S1 and S2. No murmur, rub or gallop. [] LUNGS: Diminished air entry bilaterally CENTRAL NERVOUS SYSTEM: Grossly nonfocal. [] EXTREMITIES: Lower extremities with 1+ edema bilaterally Urinary Catheter Management: Norman: Cath Placed During This Visit: yes Reason for Continuing Indwelling Catheter: Accurate Measurement of Urinary Output in Critically Ill Patients Urinary Catheter Date of Insertion: 11/17/23 Urinary Catheter Time of Insertion: 23:00 Data 11/19/23 03:00 11/19/23 03:00 Micro: Microbiology 11/17/23 19:08 Blood Culture - Preliminary Blood SPECIMEN COLLECTED 02/13/24 19:03 Blood Culture - Preliminary Blood SPECIMEN COLLECTED A&P Assessment and plan (1) Ventricular fibrillation: (2) Cardiac arrest: (3) Dyslipidemia: (4) Transaminitis: (5) COPD exacerbation: (6) Pneumonia: Plan Patient had a ventricular fibrillation episode last night. It was in setting of COPD exacerbation and hypokalemia. Could not tolerate amiodarone secondary to bradycardia afterwards. She did have ischemic EKG before the episode with ST depression seen in inferior and anterolateral alarcon. We will proceed with coronary angiogram with possible percutaneous coronary intervention as soon as potassium levels are with an acceptable limits. Her potassium dropped down to 1.9 this morning. On potassium replacement. Continue aspirin and anticoagulation with Lovenox. Echo shows normal LV systolic function. Thank you for involving us with care of this patient. We will continue to follow. Please call with questions. Consult Attestations 2 Medical Necessity Statement: Care expected to cross 2 midnights. Coding Level of Care Code Acute Code for [facility] Fwd Diagnoses Ventricular fibrillation I49.01 Cardiac arrest I46.9 Dyslipidemia E78.5 Transaminitis R74.01 COPD exacerbation J44.1 Pneumonia J18.9
[2023-11-18] MEDS: lidocaine 1% 5 ML in potassium chloride premix 100 ML 25 ML IV ×2 (09:02→13:54)
[2023-11-18] MEDS: folic acid 1 mg Tablet PO (09:34)
[2023-11-18] MEDS: thiamine 100 mg Tablet PO (09:34)
[2023-11-18] MEDS: multivitamin therapeutic Tablet 1 TAB PO (09:34)
[2023-11-18] MEDS: aztreonam 2,000 MG in sodium chloride 0.9% (plus) 100 ML 200 MG IV ×2 (09:52→20:59)
--- NOTE | 2023-11-18 10:17 | PC.NURSE ---
1000 Wasted 58ml of Fentyln after discontinuing patient that got extubated. Joey was my wittness.
[2023-11-18 10:35] LABS: Potassium 2.1 mmol/L (3.5-5.1)
[2023-11-18] MEDS: aspirin 81 mg EC Tablet PO (10:53)
--- NOTE | 2023-11-18 12:43 | P.PN_ITS ---
Subjective 2 Subjective: This morning patient was extubated to 6 L nasal cannula She is awake and alert Able to move her extremities No focal deficit noted at all Family is at the bedside Plan for angiogram today Potassium repleted Repeat potassium is around 2.1 She is getting third bag of K rider Vitals/I&O/Wt Last Vital Signs Temp 98.5 F 11/18/23 09:27 Pulse 65 11/18/23 11:46 Resp 17 11/18/23 11:35 BP 100/62 11/18/23 08:30 Pulse Ox 96 11/18/23 11:35 O2 Del Method Nasal Cannula 11/18/23 11:35 O2 Flow Rate 6 11/18/23 11:35 FiO2 40 11/18/23 09:36 11/17/23 11/18/23 11/18/23 22:59 06:59 14:59 Intake Total 150 / 150 166.778 / 316.778 97.542 / 97.542 Output Total 375 / 375 Balance 150 / 150 -208.222 / -58.222 97.542 / 97.542 Weight last 48 hrs Weight 73.936 kg Weight 73.936 kg Weight 74.162 kg Weight 72.575 kg Physical Exam 2 Narrative: Sinus rhythm Hemodynamically stable Currently on 6 L Pleasant cough Nonfocal neuroexam Clinically looks dehydrated Abdomen soft Nonfocal neuroexam Able to communicate with the family Urinary Catheter Management: Norman: Cath Placed During This Visit: yes Reason for Continuing Indwelling Catheter: Accurate Measurement of Urinary Output in Critically Ill Patients Urinary Catheter Date of Insertion: 11/17/23 Urinary Catheter Time of Insertion: 23:00 Data 11/18/23 04:26 11/18/23 10:07 Micro: Microbiology 11/17/23 19:08 Blood Culture - Preliminary Blood SPECIMEN COLLECTED 11/17/23 19:03 Blood Culture - Preliminary Blood SPECIMEN COLLECTED A&P Assessment and plan (1) Cardiac arrest: (2) Ventricular fibrillation: (3) Elevated liver transaminase level: (4) Urinary incontinence: Qualifiers: Urinary Incontinence type: mixed stress and urge incontinence Qualified Code(s): N39.46 - Mixed incontinence (5) COPD (chronic obstructive pulmonary disease) with acute bronchitis: (6) COPD with hypoxia: (7) Chronic bronchitis with acute exacerbation: (8) Pneumonia: (9) Hypoxemia: (10) COPD exacerbation: (11) Hypokalemia: Plan Cardiac arrest related to V-fib This most likely is related to severe hypokalemia on top of hypoxia and pneumonia As per cardiology EF is preserved Plan for angiogram today as soon as we are able to correct her potassium Severe hypokalemia She will get her third K rider another BMP at 1 PM Acute hypoxia related to pneumonia Aspiration pneumonia? Continue antibiotics Currently on 6 L Extubated 11/18 Congestive hepatopathy No signs of cholecystitis Patient is afebrile this morning V-fib: Amiodarone was discontinued for bradycardia She does have QT prolongation related to severe hypokalemia Continue therapeutic Lovenox She is on aztreonam, IV steroids will add vancomycin After angiogram further plan will be made Patient does not have any neurological deficit I will allow her to eat after her angiogram today Attestations 2 Medical Necessity Statement*: Continue ICU management Coding Level of Care Code Critical Care >/= 30 minutes Critical care time (in minutes): 50 The high probability of a clinically significant, sudden or life threatening deterioration, as referenced in this documentation, required my full and direct attention, intervention and personal management. The critical care time shown is in addition to time spent performing any reported separately billable procedures and includes the following: [x] Data and vital sign review and interpretation [x ] Patient assessment, examination and intervention [x] Medication orders and management [x] Patient/Family updates as able [x] Care Coordination and Documentation. Diagnoses Cardiac arrest I46.9 Ventricular fibrillation I49.01 Elevated liver transaminase level R74.01 Mixed stress and urge urinary incontinence N39.46 Urinary Incontinence type: mixed stress and urge incontinence COPD (chronic obstructive pulmonary disease) with acute bronchitis J44.0; J20.9 COPD with hypoxia J44.9 Chronic bronchitis with acute exacerbation J20.9; J42 Pneumonia J18.9 Hypoxemia R09.02 COPD exacerbation J44.1 Hypokalemia E87.6
[2023-11-18 13:03] LABS: Blood Urea Nitrogen 15 mg/dL (8-23); Calcium 7.5 mg/dL (8.5-10.5); Carbon Dioxide 40 mmol/L (22-29); Chloride 90 mmol/L (98-107); Glucose 187 mg/dL (65-115); Osmolality Calculated 302 mOsm/kg (285-295); Sodium 143 mmol/L (136-145)
[2023-11-18 13:16] LABS: Anion Gap 15.4 (5-19); Potassium 2.4 mmol/L (3.5-5.1)
[2023-11-18 13:36] LABS: NT Pro B Type Natriuretic Pept 1324 pg/mL (0-125)
[2023-11-18] MEDS: dextrose 5%-lactated ringers 1,000 ML 75 ML IV (13:59)
[2023-11-18] MEDS: vancomycin 1,000 MG in sodium chloride 0.9% 250 ML 250 MG IV (14:02)
[2023-11-18 21:09] LABS: Anion Gap 10.3 (5-19); Blood Urea Nitrogen 14 mg/dL (8-23); Calcium 7.5 mg/dL (8.5-10.5); Chloride 90 mmol/L (98-107); Glucose 210 mg/dL (65-115); Osmolality Calculated 299 mOsm/kg (285-295); Sodium 141 mmol/L (136-145)
[2023-11-18 21:13] LABS: Carbon Dioxide 43 mmol/L (22-29); Potassium 2.3 mmol/L (3.5-5.1)
[2023-11-18] MEDS: lidocaine 1% 5 ML in potassium chloride premix 100 ML 26.25 ML IV (21:29)
[2023-11-18] MEDS: potassium chloride oral liq 20 mEq/15 mL UDC 40 MEQ PO (21:29)
--- NOTE | 2023-11-18 21:45 | PC.NURSE ---
Hospitalist notified of K+ of 2.3. Orders received for 40meq oral K+ and 40meq Krider. Recheck around 0300 with a.m. labs.
--- NOTE | 2023-11-18 22:46 | USCV_ITS ---
Linda Alejandra Age: 58 Gender: F : 1965 Exam Date: 11/18/2023 07:48 Ordering Phys: Nishant Meyer MD Technologist: HARDIK [place]am [place] [facility] [place]ication: VFIB ARREST BP: 111 / 60 HR: 69 Rhythm: Sinus Technical Quality: Adequate MEASUREMENTS (Male / Female) Normal Values 2D ECHO LV Diastolic Diameter PLAX 5.7 cm 4.2 - 5.9 / 3.9 - 5.3 cm LV Systolic Diameter PLAX 3.9 cm IVS Diastolic Thickness 1.0 cm 0.6 - 1.0 / 0.6 - 0.9 cm IVS Systolic Thickness 1.8 cm LVPW Diastolic Thickness 1.5 cm 0.6 - 1.0 / 0.6 - 0.9 cm LVPW Systolic Thickness 1.6 cm LVOT Diameter 2.0 cm LV Ejection Fraction 2D Teich 57.9 % LV Ejection Fraction MOD 2C 64.7 % Aorta at Sinotubular Diameter 2.5 cm IVC Diameter 2.7 cm M-MODE LA Ao Ratio MM 1.1 AV Cusp Separation MM 2.0 cm DOPPLER AV Peak Velocity 180.0 cm/s LVOT Peak Velocity 176.0 cm/s AV Area Cont Eq vti 3.3 cm squared AV Area Cont Eq pk 3.0 cm squared TR Peak Velocity 114.0 cm/s TR Peak Gradient 5.2 mmHg PV Peak Velocity 93.0 cm/s FINDINGS Left Ventricle Left ventricle mildly dilated. LV systolic function is normal with EF of 55 to 60%. No regional wall motion abnormalities are seen. Right Ventricle Normal in size and function Right Atrium Normal in size Left Atrium Dilated Mitral Valve Structurally normal mitral valve. Aortic Valve Structurally normal aortic valve. No significant stenosis or regurgitation. Tricuspid Valve Mild tricuspid regurgitation. Insufficient TR jet to calculate RVSP Pulmonic Valve Not well visualized Pericardium Normal Aorta Normal in size IVC Dilated CONCLUSIONS LV systolic function is normal with EF of 55 to 60%. Left atrial dilation. Mild tricuspid regurgitation. IVC is dilated. No comparison studies are available Abdifatah Jay MD (Electronically Signed) Final Date: 18 November 2023 16:14 S
--- NOTE | 2023-11-18 23:51 | US_ITS ---
WS: [id number] RIGHT UPPER QUADRANT ULTRASOUND HISTORY: hepatobiliary COMPARISON: 04/15/2011 Liver: 19.0 cm in length. Enlarged liver. No mass. No intrahepatic bile duct dilatation. Portal Vein: Normal hepatopetal flow with monophasic waveform. Gallbladder: Not visualized. Surgically absent most likely. CBD: 0.8 cm Pancreas: Normal size and echogenicity. Right kidney: 13.1 cm in length. Normal size and echogenicity. No hydronephrosis or mass. Aorta and IVC: Mildly dilated IVC. No ascites. There is a small RIGHT pleural effusion. IMPRESSION: 1. Nonvisualization of the gallbladder. Probably surgically absent. 2. Common bile duct is mildly dilated 8 mm this is probably related to the cholecystectomy state. 3. Small RIGHT pleural effusion. 4. Normal portal vein.
[2023-11-19] VITALS (58 sets, daily range): BP systolic 83–130; BP diastolic 46–79; PULSE 58–91; RESP 10–37; TEMP 36.5; O2SAT 84–98
[2023-11-19] MEDS: vancomycin 1,000 MG in sodium chloride 0.9% 250 ML 250 MG IV (01:01)
[2023-11-19] MEDS: dextrose 5%-lactated ringers 1,000 ML 75 ML IV (02:48)
[2023-11-19 03:10] LABS: Lymphocytes % 9.4 %; Mean Corpuscular HGB Conc 30.6 g/dL (30-55); Mean Corpuscular Hemoglobin 31.1 pg (27-33); Mean Corpuscular Volume 101.5 fl (85-98); Monocytes # 0.9 10^3/uL (0.2-0.9); Monocytes % 8.7 %; Neutrophils # 8.71 10^3/uL (1.8-7.7); Neutrophils % 81.5 %; Nucleated Red Blood Cells % 0.3 %; Platelet Count 261 10^3/cmm (157-399); Red Blood Count 4.63 10^6/uL (3.85-5.65); Red Cell Distribution Width 17.7 % (12.1-15.1); White Blood Count 10.68 10^3/uL (3.29-11.43)
[2023-11-19 03:30] LABS: Anion Gap 7.8 (5-19); Blood Urea Nitrogen 15 mg/dL (8-23); Calcium 7.2 mg/dL (8.5-10.5); Chloride 95 mmol/L (98-107); Glucose 158 mg/dL (65-115); Osmolality Calculated 302 mOsm/kg (285-295); Sodium 144 mmol/L (136-145)
[2023-11-19 03:34] LABS: Carbon Dioxide 44 mmol/L (22-29); Magnesium 2.5 mg/dL (1.7-2.3); Potassium 2.8 mmol/L (3.5-5.1)
[2023-11-19] MEDS: lidocaine 1% 5 ML in potassium chloride premix 100 ML 26.25 ML IV ×3 (08:10→12:37)
[2023-11-19] MEDS: nicotine 21 mg Patch 1 PATCH TRANSDERMA (08:38)
[2023-11-19] MEDS: thiamine 100 mg Tablet PO (08:38)
[2023-11-19] MEDS: folic acid 1 mg Tablet PO (08:39)
[2023-11-19] MEDS: aspirin 81 mg EC Tablet PO (08:39)
[2023-11-19] MEDS: multivitamin therapeutic Tablet 1 TAB PO (08:39)
[2023-11-19] MEDS: aztreonam 2,000 MG in sodium chloride 0.9% (plus) 100 ML 100 MG IV ×2 (08:39→22:05)
[2023-11-19] MEDS: sodium chloride 0.9% 500 ML 999 ML IV (08:50)
--- NOTE | 2023-11-19 09:00 | XR_ITS ---
WS: [id number] Portable AP upright chest, 11/19/2023 Clinical Data: cough Comparison: Portable chest, 11/17/2023 Findings: There are bilateral opacities which show pulmonary vascular congestion and development of a left pleural effusion. The heart is enlarged. The aortic arch shows calcification. No nodules or mas ses are seen. There is no pneumothorax. Monitor leads are on the chest wall. The endotracheal tube an d nasogastric tube have been removed. The monitor device over the mediastinum is no longer present. Impression: 1. Pulmonary vascular congestion with small left pleural effusion. 2. Cardiomegaly.
[2023-11-19] MEDS: ipratropium 0.5 mg/2.5 mL Neb INHALATION (09:04)
[2023-11-19] MEDS: levalbuterol 0.63 mg/3 mL Neb INHALATION (09:05)
--- NOTE | 2023-11-19 09:10 | PC.NURSE ---
preparing possible cath today ,,, blood pressure slighty lower doctor here fluid bolus ordered ,,,, then o2 level dropped bolus on hold and o2 increseased to 5 lnc as sat 81. respritory called treatment and chest xray ordered
[2023-11-19] MEDS: FUROsemide 10 mg/mL SDV 2mL 20 MG IVP (10:03)
[2023-11-19] MEDS: potassium chloride oral liq 20 mEq/15 mL UDC 40 MEQ PO (10:12)
--- NOTE | 2023-11-19 10:18 | PC.NURSE ---
Dr Guerra here orders noted lasix given per order
[2023-11-19] MEDS: aspirin 325 mg Tablet PO (10:50)
[2023-11-19] MEDS: diphenhydrAMINE 50 mg Capsule PO (10:50)
--- NOTE | 2023-11-19 10:56 | P.PN_ITS ---
Subjective 2 Subjective: This morning patient is hypoxic chest x-ray showed vascular congestion, left- sided diminished breath sounds noted she does have mild pleural effusion I would like to put her on BiPAP give her mild Lasix continue potassium will also give her oral liquid potassium along IV Informed Dr. Jay Patient is able to lay flat Vitals/I&O/Wt Last Vital Signs Temp 97.7 F 11/19/23 09:00 Pulse 83 11/19/23 09:08 Resp 16 11/19/23 09:06 BP 106/62 11/19/23 09:00 Pulse Ox 88 L 11/19/23 09:06 O2 Del Method Nasal Cannula 11/19/23 09:06 O2 Flow Rate 5 11/19/23 09:06 FiO2 40 11/18/23 09:36 11/18/23 11/19/23 11/19/23 22:59 06:59 14:59 Intake Total 695 / 2461.915 1361.25 / 2513.792 150 / 150 Output Total 300 / 675 450 / 1125 Balance 395 / 422.542 966.25 / 1388.792 150 / 150 Weight last 48 hrs Weight 78.925 kg Weight 73.936 kg Weight 73.936 kg Weight 74.162 kg Weight 72.575 kg Physical Exam 2 Narrative: Patient is awake and alert Currently on 8 L nasal cannula GCS 15 No active chest pain or shortness of breath Nonfocal neuroexam Pleasant cooperative Clinically looks dehydrated Dry cracked lips dry mucous membranes Urinary Catheter Management: Norman: Cath Placed During This Visit: yes Reason for Continuing Indwelling Catheter: Accurate Measurement of Urinary Output in Critically Ill Patients Urinary Catheter Date of Insertion: 11/17/23 Urinary Catheter Time of Insertion: 23:00 Data 11/19/23 03:00 11/19/23 03:00 Micro: Microbiology 11/17/23 19:08 Blood Culture - Preliminary Blood NEGATIVE TO DATE 11/17/23 19:03 Blood Culture - Preliminary Blood NEGATIVE TO DATE 11/17/23 18:30 Gram Stain - Final Sputum - Expectorated Sputum 11/17/23 23:05 Gram Stain - Final Sputum - Endotracheal Tube Aspirate A&P Assessment and plan (1) Benign essential hypertension: (2) Cardiac arrest: (3) Ventricular fibrillation: (4) History of vitamin D deficiency: (5) Elevated liver transaminase level: (6) Hypokalemia: (7) COPD (chronic obstructive pulmonary disease) with acute bronchitis: (8) COPD with hypoxia: (9) Hypoxemia: (10) Pneumonia: (11) Acute respiratory failure with hypoxia: (12) COPD exacerbation: Plan Acute hypoxia related to vascular congestion and pneumonia Currently on 8 L I would like to give her BiPAP before angiogram Give small dose Lasix Chest x-ray showing vascular congestion mild in nature She has diminished right lower basilar sounds Cardiac arrest status post ROSC No neurological deficit Patient was due for angiogram no active chest pain shortness of breath Echo as per Dr. Jay, preserved ejection fraction Severe hypokalemia, patient received 3 bags of care yesterday I am giving her a generic event today we will give her oral liquid potassium as well Diastolic CHF secondary to fluid administration after cardiac arrest Small dose of Lasix Continue potassium Turn off IV fluids Magnesium 2.5 BNP is 1300 Creatinine is normal Abnormal transaminases I do believe is related to diastolic CHF exacerbation I do not suspect any cholecystitis gallbladder ultrasound negative No signs of PE Pulmonary arterial hypertension Attestations 2 Medical Necessity Statement*: Continue medical management Diagnoses Benign essential hypertension I10 Cardiac arrest I46.9 Ventricular fibrillation I49.01 History of vitamin D deficiency Z86.39 Elevated liver transaminase level R74.01 Hypokalemia E87.6 COPD (chronic obstructive pulmonary disease) with acute bronchitis J44.0; J20.9 COPD with hypoxia J44.9 Hypoxemia R09.02 Pneumonia J18.9 Acute respiratory failure with hypoxia J96.01 COPD exacerbation J44.1
--- NOTE | 2023-11-19 11:00 | P.PN_ITS ---
Subjective 2 Subjective: Patient is doing well. No chest pain. has shortness of breath. Vitals/I&O/Wt Last Vital Signs Temp 97.7 F 11/19/23 09:00 Pulse 83 11/19/23 09:08 Resp 16 11/19/23 09:06 BP 106/62 11/19/23 09:00 Pulse Ox 88 L 11/19/23 09:06 O2 Del Method Nasal Cannula 11/19/23 09:06 O2 Flow Rate 5 11/19/23 09:06 FiO2 40 11/18/23 09:36 11/18/23 11/19/23 11/19/23 22:59 06:59 14:59 Intake Total 695 / 6854.957 8693.25 / 2513.792 150 / 150 Output Total 300 / 675 450 / 1125 Balance 395 / 422.542 966.25 / 1388.792 150 / 150 Weight last 48 hrs Weight 174 lb Weight 163 lb Weight 163 lb Weight 163 lb 8 oz Weight 160 lb Physical Exam 2 Narrative: GENERAL: Patient is alert, awake NECK: No jugular vein distension. [] HEENT: No cyanosis. No icterus. No pallor. [] HEART: Regular S1 and S2. No murmur, rub or gallop. [] LUNGS: Diminished air entry bilaterally CENTRAL NERVOUS SYSTEM: Grossly nonfocal. [] EXTREMITIES: Lower extremities with 1+ edema bilaterally Urinary Catheter Management: Norman: Cath Placed During This Visit: yes Reason for Continuing Indwelling Catheter: Accurate Measurement of Urinary Output in Critically Ill Patients Urinary Catheter Date of Insertion: 11/17/23 Urinary Catheter Time of Insertion: 23:00 Data 11/19/23 11:59 11/19/23 03:00 Micro: Microbiology 11/17/23 19:08 Blood Culture - Preliminary Blood NEGATIVE TO DATE 11/17/23 19:03 Blood Culture - Preliminary Blood NEGATIVE TO DATE 11/17/23 18:30 Gram Stain - Final Sputum - Expectorated Sputum 11/17/23 23:05 Gram Stain - Final Sputum - Endotracheal Tube Aspirate A&P Assessment and plan (1) Cardiac arrest: (2) Ventricular fibrillation: (3) History of vitamin D deficiency: (4) Elevated liver transaminase level: (5) Hypokalemia: (6) COPD (chronic obstructive pulmonary disease) with acute bronchitis: (7) COPD with hypoxia: (8) Hypoxemia: (9) Pneumonia: (10) Acute respiratory failure with hypoxia: (11) COPD exacerbation: (12) Dyslipidemia: (13) Transaminitis: Plan Coronary angiogram does not demonstrate CAD. Patient has elevated cardiac pressures. Likely secondary to diastolic dysfunction. Will need careful diuresis with monitoring of potassium level. Close I and Os. Recommend nephrology consult for further workup of hypokalemia. If hypokalemia resolves and no more arrhythmias, does not need ICD/ lifevest at this time. Thank you for involving us with care of this patient. We will continue to follow. Please call with questions. Attestations 2 Medical Necessity Statement*: Care expected to cross 2 midnights. Coding Level of Care Code Acute Code for [facility] Diagnoses Cardiac arrest I46.9 Ventricular fibrillation I49.01 History of vitamin D deficiency Z86.39 Elevated liver transaminase level R74.01 Hypokalemia E87.6 COPD (chronic obstructive pulmonary disease) with acute bronchitis J44.0; J20.9 COPD with hypoxia J44.9 Hypoxemia R09.02 Pneumonia J18.9 Acute respiratory failure with hypoxia J96.01 COPD exacerbation J44.1 Dyslipidemia E78.5 Transaminitis R74.01
--- NOTE | 2023-11-19 11:00 | W.PM.OPSUD ---
Surgery/Procedure H&P Update DATE OF PROCEDURE: November 19, 2023 DATE H&P PERFORMED: 11/18/23 H&P UPDATE INFORMATION: I have reviewed H&P completed within last 30 days, I have examined patient prior to procedure and No changes to prior documentation PREOP DIAGNOSIS: Ventricular fibrillation/ Congestive heart failure PRIMARY INDICATION FOR PROCEDURE: Ventricular fibrillation/ Congestive heart failure PLANNED PROCEDURE: Operation Date: 11/19/23 11:30 Proposed Procedures p Cardiac Catheterization(Left) - Abdifatah Jay M.D Possible percutaneous coronary intervention PATIENT REASSESSED PRIOR TO SEDATION, WITH NO CHANGE NOTED: Yes PHYSICAL EXAM: alert, oriented x 3, clear to auscultation bilaterally and regular rate & rhythm AIRWAY EVAL/ANESTHESIA PLAN: normal airway, ASA III, Local Anesthesia, Risks, benefits & alternatives of sedation and/or procedure discussed and Patient agrees to continue as planned ADDITIONAL INFORMATION: Moderate sedation
--- NOTE | 2023-11-19 11:30 | XACV_ITS ---
Exam Room: [facility] Ht: 168 cm Wt: 74 kg BSA: 1.87 m2 Gender: Female : 1965 Any Known Allergies: Penicillins Exam Priority: Routine Procedure(s): Procedure Description: Diagnostic procedure Procedure Description: Left Heart Catheterization Procedure Description: Coronary Angiography Diagnostic Cath Status: Urgent Diagnostic Findings * INDICATION: Ventricular fibrillation/ congestive heart failure. * No disease noted in the Left Main, Left Anterior Descending, Right, or Circumflex coronary arteries. * Coronary angiography shows right dominance. Conclusions 1. No disease noted in the Left Main, Left Anterior Descending, Right, or Circumflex coronary arteries. Recommendations * Aggressive risk factor modification and potassium replacement. * Outpatient cardiology follow up in 2 weeks. Interventional RX Recommendation: medical therapy and/or counseling Diagnostic RX Recommendation: medical therapy and/or counseling Pressures Phase:Rest AO : 99 / 71 ( 84 ) @ 11:31:00 AM 106 / 66 ( 85 ) @ 11:36:00 AM 107 / 68 ( 86 ) @ 11:36:00 AM LV : 109 / / 26 @ 11:35:00 AM 111 / 9 / 26 @ 11:36:00 AM Valves Phase:DefaultPhase AV : 5.0 @ 11:40:53 AM 5.0 @ 11:40:53 AM AV Mean Gradient: 8.0 @ 11:40:53 AM 8.0 @ 11:40:53 AM Clinical Evaluation EBL: 5mL-10mL Procedural Details Procedure Consent Obtained. Admit Source: In Patient. Pre-Procedure Time Out. Identified patient by full name and date of as verbalized by the patient/guarantor. Does the consent match the physician's order: Yes. Accurate & Complete Informed Consent: Yes. Inpatient/Outpatient History & Physical on Chart: Yes. If H&P is completed, is and addenduem needed: No; If yes, is the addendum complete: N/A. Visualize and Verify Site with Patient/Guarantor: N/A. Relevant Radiology Images available: Yes. Pre-op teaching completed and patient verbalized understanding. The risks, benefits, and alternatives of sedation and/or procedure were discussed by physician. The patient agrees to continue. Procedure started. [facility] Clinical Fraility Score: 4: Vulnerable. Tv News Director Indications: Cardiac Arrhythmia. Chest Pain Symptom Assessment: Asymptomatic. Correct patient, site and procedure confirmed by cath team. PERRLA. Strong, equal hand hvac manager bilaterally. Lungs clear x 5 lobes. Oxygen started at 10liters/min via nasal canula. right groin was prepped with chloroprep then draped in the usual sterile fashion. right radial was prepped with chloroprep then draped in the usual sterile fashion. IV Fluids: 0.9% NaCl at KVO. 500 mL infused prior to produce laborer. Physician arrived. IV Site on Arrival: 20 gauge in the right anticubital. IV Site on Arrival: 20 gauge in the left anticubital. Baseline sample Acquired. HR: 99 BPM. The patient arrived to the produce laborer with potassium running at 50mL/hour. Physician scrubbed in. Immediate Pre-Procedure Time Out. Correct Patient: Yes; Correct Procedure: Yes; Correct Site: Yes; Correct Patient Position: Yes; Correct Supplies: Yes; Dried Flammable Prep: Yes; Blood Products Available: N/A;. Lidocaine 1% infiltrated to the right radial. Arterial access obtained. A 5 bulgarian TIG catheter in over wire. Multiple views taken of left coronary artery. Catheter redirected to the RCA. Multiple views taken of right coronary artery. Catheter removed over the exchange wire. A 5 bulgarian Straight Pig catheter in over wire. EDP Sample taken: LV 109/9,26; HR: 82 BPM; SpO2: 95%. Pullback taken: LV 111/9,26; AO 106/66(85); Mean: 8mmHg, Peak to Peak: 5mmHg, SEP: 22sec/min; HR: 82 BPM; SpO2: 95%. Catheter removed over the exchange wire. A TR Band was successful obtaining hemostatsis at the Right Radial artery insertion site. Post Procedure: Pulses reassessed and unchanged. PERRLA. Strong, equal hand hvac manager bilaterally. No VTE prophylaxis required. Medication's Wasted: Nitro = 49.8 mg. Medication's Wasted: Heparin = 1000 units. Medication's Wasted: Other = Fentanyl 100mcg Versed 1 mg. Medication's Wasted: Lidocaine 1% = 3 mL. Total IV fluids: 10 mL. Vital chart was stopped. Post-op diagnosis: Normal Coronaries. Complications: None. Estimated blood loss: 5mL-10mL. Responsiveness - Normal response to verbal stimuli; alert and oriented, PERRLA. Airway - Unaffected, no intervention required; spontaneous ventilation. Circulation: W/N/L, pulses unchanged. Nausea/Vomiting: No. Procedure completed. Patient transferred by bed to 1st floor. Access Site Site: Right Radial artery Sheath Size: 6 Fr Hemostasis Method: TR Band Hemostasis Success: Successful Procedure Medications Start: 11:16 AM Stop: 11:16 AM Medication: Versed Amount: 0.5 mg Route: I.V. Start: 11:25 AM Stop: 11:25 AM Medication: Versed Amount: 0.5 mg Route: I.V. Start: 11:27 AM Stop: 11:27 AM Medication: Nitrogylcerin Amount: 200 mcg Route: I.A. Start: 11:29 AM Stop: 11:29 AM Medication: Heparin Amount: 5000 units Route: I.V. I, the attending physician, have reviewed and verified all procedure medications. Yes, all medications given per verbal order History/Risk Factors Hypertension: Yes Dyslipidemia: Yes Peripheral Arterial Disease (PAD): No Myocardial Infarction (AL): No Obesity: No Renal Disease: No Tobacco Use: Current/Recent(w/in 1 year) Prior Interventions PCI: No CABG: No Valve Surgery: No Report Signatures Finalized by Abdifatah Jay MD on 11/29/2023 10:55 AM
[2023-11-19 12:10] LABS: Basophils % 0.2 %; Hematocrit 50.9 % (36-47); Lymphocytes # 1.3 10^3/uL (0.8-4.8); Lymphocytes % 10.7 %; Mean Corpuscular HGB Conc 29.9 g/dL (30-55); Mean Corpuscular Hemoglobin 31.1 pg (27-33); Mean Corpuscular Volume 104.1 fl (85-98); Mean Platelet Volume 11.1 fL (7.4-10.4); Monocytes # 0.7 10^3/uL (0.2-0.9); Neutrophils # 9.85 10^3/uL (1.8-7.7); Neutrophils % 82.6 %; Nucleated Red Blood Cells % 0.3 %; Platelet Count 243 10^3/cmm (157-399); Red Blood Count 4.89 10^6/uL (3.85-5.65); Red Cell Distribution Width 17.8 % (12.1-15.1); White Blood Count 11.93 10^3/uL (3.29-11.43)
--- NOTE | 2023-11-19 12:14 | PC.NURSE ---
back from seed laboratory assistant no distress sitting up in bed o2 10lL high flow
[2023-11-19] MEDS: enoxaparin 80 mg/0.8 mL Syringe 70 MG SUBCUT ×2 (12:34→23:48)
[2023-11-19] MEDS: lidocaine 1% 5 ML in potassium chloride premix 100 ML 52.5 ML IV ×3 (12:34→19:22)
[2023-11-19 13:02] LABS: ABG PCO2 68.5 mmHg (35-45); ABG PH Result 7.44 (7.35-7.45); Arterial Blood Gas Hematocrit 48.8 % (37-47); Base Excess ABG 17.7 mmol/L (-2.0-2.0); Blood Gas Allen Test Pos; Blood Gas Operator Identificat CAK; Blood Gas Sample Site Radial, left; Blood Gas Sample Type Arterial; HCO3 ABG 46.4 mmol/L (22-26); Oxygen Device NC; PO2 ABG 78.5 mmHg (80.0-100.0)
[2023-11-19 13:30] LABS: Potassium, Radom Urine 10 mmol/L; Urine Random Chloride 103 mmol/L; Urine Random Sodium 84 mmol/L
[2023-11-19 16:22] LABS: Anion Gap 8.1 (5-19); Blood Urea Nitrogen 15 mg/dL (8-23); Calcium 7.6 mg/dL (8.5-10.5); Chloride 97 mmol/L (98-107); Glucose 163 mg/dL (65-115); Osmolality Calculated 306 mOsm/kg (285-295); Potassium 3.1 mmol/L (3.5-5.1); Sodium 146 mmol/L (136-145)
[2023-11-19 16:25] LABS: Carbon Dioxide 44 mmol/L (22-29)
--- NOTE | 2023-11-19 17:50 | P.CONIM_ITS ---
Providers/Reason For Consult 2 Consulting Physician/Specialty*: kommana/Nephrology Reason for Consult*: Hypokalemia and Metabolic alkalosis Attending Physician: Irene Mullen MD Primary Care Provider: Michael Stafford MD History of Present Illness History of Present Illness Linda Alejandra is a 58 year old female Patient is a 58-year-old female with past medical history of COPD, hypertension generalized anxiety disorder, dyslipidemia was admitted to the hospital on 11/17/2023 for hypoxia and shortness of breath. Patient initially presented to [place] clinic where she was found to be hypoxic, chest x-ray showed questionable pneumonia. Elevated troponin was noted as well as elevated proBNP. CT angiogram of the chest was done which was negative for PE but has pulmonary edema and right pleural effusion. Lab data was significant for severe hypokalemia with a potassium of 2.2 as well as metabolic acidosis with a bicarbonate above 40. While she was admitted in the hospital she had a cardiac arrest noted to be in V-fib-ROSC achieved after CPR and defibrillation.. Patient's potassium is being aggressively repleted. Left heart cath did not show evidence of ischemia disease. She was being diuresed as needed. Patient reports no [id number] medications used, no herbal supplements, but has lost appetite and has been drinking only water and no food intake for about 1 week prior to this presentation. Had prior labs from 2020 did not show hyperkalemia or metabolic acidosis. Review of Systems 2 Narrative: Other review of systems negative Medications/Allergies Home Medications Medication Instructions Recorded Confirmed Last Taken Type atorvastatin 10 mg tablet 10 mg PO DAILY #90 tabs 07/22/23 11/18/23 Unknown Rx lisinopril 20 mg tablet 20 mg PO DAILY #90 tabs 07/22/23 11/18/23 Unknown Rx sertraline 100 mg tablet (Zoloft) 100 mg PO DAILY #90 tabs 07/22/23 11/18/23 Unknown Rx sertraline 50 mg tablet (Zoloft) 50 mg PO DAILY #90 tabs 07/22/23 11/18/23 Unknown Rx albuterol sulfate 90 mcg/actuation 2 inh inhalation Q4H PRN shortness 08/21/23 11/18/23 Unknown Rx aerosol inhaler of breath or wheezing #6.7 grams amlodipine 10 mg tablet (Norvasc) 10 mg PO DAILY #90 tabs 08/21/23 11/18/23 Unknown Rx Allergies Allergy/AdvReac Type Severity Reaction Status Date / Time Penicillins AdvReac Mild hives, Verified 11/17/23 16:27 itching Current Medications Generic Name Dose Route Start Last Admin Trade Name Freq PRN Reason Stop Dose Admin Aspirin 81 mg 11/18/23 09:30 11/19/23 08:39 Aspirin 81 Mg Ec Tablet PO 81 mg DAILY OLGA Administration Enoxaparin Sodium 70 mg 11/17/23 23:15 11/19/23 12:34 Enoxaparin 80 Mg/0.8 Ml Syringe SUBCUT 70 mg Q12H OLGA Administration Folic Acid 1 mg 11/18/23 09:00 11/19/23 08:39 Folic Acid 1 Mg Tablet PO 1 mg DAILY OLGA Administration Aztreonam 2,000 mg/ Sodium 100 mls @ 200 mls/hr 11/18/23 09:00 11/19/23 09:48 Chloride IV Infused Q12H OLGA Infusion Protocol Dextrose/Lactated Ringer's 1,000 mls @ 75 mls/hr 11/18/23 13:00 11/19/23 02:48 Dextrose 5%-Lactated Ringers IV 75 mls/hr .[id number] OLGA Administration Lidocaine HCl 5 ml/ Potassium 105 mls @ 52.5 mls/hr 11/19/23 16:52 11/19/23 17:13 Chloride IV 11/19/23 18:51 52.5 mls/hr ONCE ONE Administration Ipratropium Cushman 0.5 mg 11/18/23 14:13 11/19/23 09:04 Ipratropium 0.5 Mg/2.5 Ml Neb INHALATION 0.5 mg Q4H.RESPIRATORY PRN Administration sob Levalbuterol HCl 0.63 mg 11/17/23 23:06 11/19/23 09:05 Levalbuterol 0.63 Mg/3 Ml Neb INHALATION 0.63 mg Q4H.RESPIRATORY PRN Administration SHORTNESS OF BREATH Levalbuterol HCl 0.63 mg 11/17/23 23:15 11/18/23 20:03 Levalbuterol 0.63 Mg/3 Ml Neb INHALATION 0.63 mg ONCE OLGA Administration Multivitamins Therapeutic 1 tab 11/18/23 09:00 11/19/23 08:39 Multivitamin Therapeutic Tablet PO 1 tab DAILY OLGA Administration Nicotine 1 patch 11/17/23 23:55 11/19/23 08:38 Nicotine 21 Mg Patch TRANSDERMA 1 patch DAILY OLGA Administration Thiamine Mononitrate 100 mg 11/18/23 09:00 11/19/23 08:38 Thiamine 100 Mg Tablet PO 100 mg DAILY OLGA Administration PFSH Acute 2 PFSH: Medical History Rectoperineal fistula Chronic bronchitis with acute exacerbation COPD with hypoxia COPD (chronic obstructive pulmonary disease) with acute bronchitis Family history of colon cancer 09/15/[address] Flaherty with biopsy and repeat colonoscopy in 5 years Neck swelling Dyslipidemia Cervical intraepithelial neoplasia II Urinary incontinence Benign essential hypertension OMID (generalized anxiety disorder) Surgical History Hx of colonoscopy with polypectomy History of vaginal surgery (04/17/20) Posterior colporrhaphy, SIS sling. Dx: Fourth degree rectocele, BRIANNA. Performed by Dr. Jimenez at [facility] in [place], [place] History of bilateral tubal ligation (~2005) H/O hernia repair Family History Mother Ovarian cancer Uterine cancer Colon cancer high risk Grandmother Diabetes maternal Grandfather Hypertension maternal Thyroid disease maternal Social History Smoking and tobacco/nicotine status: current every day tobacco/nicotine user cigarettes Packs smoked per day: 0.75 Alcohol intake: current Alcohol intake frequency: holidays/special occasions only Substance/Drug Use: never Vitals/I&O/Wt Last Vital Signs Temp 97.7 F 11/19/23 09:00 Pulse 82 11/19/23 14:00 Resp 19 H 11/19/23 14:00 BP 112/72 11/19/23 12:00 Pulse Ox 94 11/19/23 14:00 O2 Del Method Nasal Cannula 11/19/23 14:00 O2 Flow Rate 5 11/19/23 14:00 FiO2 40 11/18/23 09:36 11/19/23 11/19/23 11/19/23 06:59 14:59 22:59 Intake Total 1416.25 / 2513.792 685.937 / 685.937 105 / 790.937 Output Total 450 / 1125 Balance 966.25 / 1388.792 685.937 / 685.937 105 / 790.937 Weight last 48 hrs Weight 78.925 kg Weight 73.936 kg Weight 73.936 kg Weight 74.162 kg Physical Exam 2 Narrative: awake , alert, no distress No edema Urinary Catheter Management: Norman: Cath Placed During This Visit: yes Reason for Continuing Indwelling Catheter: Accurate Measurement of Urinary Output in Critically Ill Patients Urinary Catheter Date of Insertion: 11/17/23 Urinary Catheter Time of Insertion: 23:00 Data 11/19/23 11:59 11/19/23 16:00 Micro: Microbiology 11/17/23 18:30 Gram Stain - Final Sputum - Expectorated Sputum Sputum Culture - Preliminary 11/17/23 23:05 Gram Stain - Final Sputum - Endotracheal Tube Aspirate Sputum Culture - Preliminary 11/17/23 19:08 Blood Culture - Preliminary Blood NEGATIVE TO DATE 11/17/23 19:03 Blood Culture - Preliminary Blood NEGATIVE TO DATE A&P Assessment and plan (1) Hypokalemia: (2) Hypochloremic alkalosis: 1. Hypokalemia associated with hypochloremic metabolic alkalosis: This may very well could be due to poor p.o. intake for prolonged period of time. Denies nausea vomiting or diarrhea. No diuretic use , denies laxative abuse. other differential include - salt-losing tubulopathies ( Barters , Gilttelmans and Jose Ramon syndromes ) , mineralocorticoid excess - will give scheduled KCL 30 MEQ BID -Will check urine magnesium, urine calcium, urine potassium and chloride levels -Check renin and aldosterone levels 2. Status postcardiac [id number] arrest 3. Elevated troponin-, left heart cath showed no ischemic disease 3. Hypoalbuminemia, will give few doses of albumin, encourage p.o. intake 4. History of COPD Patient evaluated using audiovisual cart. Time spent 40 minutes Consult Attestations 2 Medical Necessity Statement: per danna Coding Level of Care Code Acute Code for [facility] Fwd Diagnoses Hypokalemia E87.6 Hypochloremic alkalosis E87.3
[2023-11-19] MEDS: potassium chloride ER 10 mEq Tablet 30 MEQ PO (18:10)
[2023-11-19] MEDS: acetaminophen 325 mg Tablet 650 MG PO (21:38)
[2023-11-20] VITALS (45 sets, daily range): BP systolic 93–143; BP diastolic 63–89; PULSE 66–93; RESP 12–29; TEMP 36.4–37.1; O2SAT 86–96
[2023-11-20 04:22] LABS: Basophils % 0.2 %; Eosinophils % 0.1 %; Hematocrit 47.6 % (36-47); Lymphocytes # 1.1 10^3/uL (0.8-4.8); Lymphocytes % 10.6 %; Mean Corpuscular Hemoglobin 31.6 pg (27-33); Mean Corpuscular Volume 105.1 fl (85-98); Mean Platelet Volume 11.3 fL (7.4-10.4); Monocytes # 0.5 10^3/uL (0.2-0.9); Monocytes % 5.4 %; Neutrophils # 8.33 10^3/uL (1.8-7.7); Neutrophils % 83.3 %; Nucleated Red Blood Cells % 0.2 %; Platelet Count 230 10^3/cmm (157-399); Red Blood Count 4.53 10^6/uL (3.85-5.65); Red Cell Distribution Width 17.7 % (12.1-15.1)
[2023-11-20 04:30] LABS: Calcium Urine Random 0.8 mg/dL; Chloride Urine Random 26 mmol/L; Creatinine Urine, Random 76 mg/dL (28-217); Urine Random Chloride 25 mmol/L
[2023-11-20 04:42] LABS: Urine Random Sodium 10 mmol/L
[2023-11-20 04:45] LABS: Alanine Aminotransferase 42 U/L (0-33); Albumin Level 2.7 g/dL (3.5-5.2); Alkaline Phosphatase 120 U/L (35-105); Anion Gap 8.2 (5-19); Aspartate Amino Transferase 44 U/L (0-32); Blood Urea Nitrogen 15 mg/dL (8-23); Calcium 7.6 mg/dL (8.5-10.5); Chloride 97 mmol/L (98-107); Globulin 2.9 g/dL (1.3-4.6); Glomerular Filtration Rate 125.9 mL/min (90-130); Glucose 98 mg/dL (65-115); Osmolality Calculated 303 mOsm/kg (285-295); Potassium 3.2 mmol/L (3.5-5.1); Sodium 146 mmol/L (136-145); Total Bilirubin 0.5 mg/dL (0.15-1.2); Total Protein 5.6 g/dL (6.6-8.7)
[2023-11-20 04:51] LABS: Carbon Dioxide 44 mmol/L (22-29)
--- NOTE | 2023-11-20 07:38 | PM.PN ---
Subjective Subjective: Patient doing well. Coronary angiogram did not show significant CAD. Vitals/I&O/Wt Last Vital Signs Temp 97.7 F 11/19/23 18:00 Pulse 81 11/20/23 06:00 Resp 20 H 11/20/23 06:00 BP 138/89 11/20/23 06:00 Pulse Ox 87 L 11/20/23 05:00 O2 Del Method Nasal Cannula 11/19/23 20:00 O2 Flow Rate 8 11/19/23 20:00 FiO2 40 11/18/23 09:36 11/19/23 11/20/23 11/20/23 22:59 06:59 14:59 Intake Total 765 / 1450.937 100 / 1550.937 Output Total 1800 / 1800 750 / 2550 Balance -1035 / -349.063 -650 / -999.063 Weight last 48 hrs Weight 174 lb Physical Exam Narrative: GENERAL: Patient is alert, awake NECK: No jugular vein distension. [] HEENT: No cyanosis. No icterus. No pallor. [] HEART: Regular S1 and S2. No murmur, rub or gallop. [] LUNGS: Diminished air entry bilaterally CENTRAL NERVOUS SYSTEM: Grossly nonfocal. [] EXTREMITIES: Lower extremities with 1+ edema bilaterally Urinary Catheter Management: Norman: Cath Placed During This Visit: yes Reason for Continuing Indwelling Catheter: Accurate Measurement of Urinary Output in Critically Ill Patients Urinary Catheter Date of Insertion: 11/17/23 Urinary Catheter Time of Insertion: 23:00 Data 11/20/23 03:47 11/20/23 03:47 Micro: Microbiology 11/17/23 18:30 Gram Stain - Final Sputum - Expectorated Sputum Sputum Culture - Preliminary 11/17/23 23:05 Gram Stain - Final Sputum - Endotracheal Tube Aspirate Sputum Culture - Preliminary A&P Assessment and plan (1) Cardiac arrest: (2) Ventricular fibrillation: (3) History of vitamin D deficiency: (4) Elevated liver transaminase level: (5) Hypokalemia: (6) COPD (chronic obstructive pulmonary disease) with acute bronchitis: (7) COPD with hypoxia: (8) Hypoxemia: (9) Pneumonia: (10) Acute respiratory failure with hypoxia: (11) COPD exacerbation: (12) Dyslipidemia: (13) Transaminitis: Plan No CAD on coronary angiogram. Nephrology on board for hypokalemia etiology. Replace potassium as needed. Will recommend outpatient event monitor. No further cardiac arrhythmias seen on telemetry since potassium levels improved. Thank you for involving us with care of this patient. Cardiology will sign off. Please call with questions. Attestations Medical Necessity Statement*: Care expected to cross 2 midnights. Coding Level of Care Code Acute Code for [facility] Fwd Diagnoses Cardiac arrest I46.9 Ventricular fibrillation I49.01 History of vitamin D deficiency Z86.39 Elevated liver transaminase level R74.01 Hypokalemia E87.6 COPD (chronic obstructive pulmonary disease) with acute bronchitis J44.0; J20.9 COPD with hypoxia J44.9 Hypoxemia R09.02 Pneumonia J18.9 Acute respiratory failure with hypoxia J96.01 COPD exacerbation J44.1 Dyslipidemia E78.5 Transaminitis R74.01
[2023-11-20] MEDS: nicotine 21 mg Patch 1 PATCH TRANSDERMA (08:48)
[2023-11-20] MEDS: aspirin 81 mg EC Tablet PO (08:49)
[2023-11-20] MEDS: thiamine 100 mg Tablet PO (08:49)
[2023-11-20] MEDS: aztreonam 2,000 MG in sodium chloride 0.9% (plus) 100 ML 200 MG IV (08:49)
[2023-11-20] MEDS: multivitamin therapeutic Tablet 1 TAB PO (08:50)
[2023-11-20] MEDS: folic acid 1 mg Tablet PO (08:50)
[2023-11-20] MEDS: potassium chloride ER 20 mEq Tablet 40 MEQ PO ×2 (08:50→18:29)
[2023-11-20] MEDS: ipratropium 0.5 mg/2.5 mL Neb INHALATION ×2 (09:09→13:15)
[2023-11-20] MEDS: levalbuterol 0.63 mg/3 mL Neb INHALATION ×2 (09:09→13:15)
--- NOTE | 2023-11-20 10:39 | P.PN_ITS ---
Subjective 2 Subjective: Potassium slightly better Still alkalotic I can transfer out of ICU to CSU Still requiring 6 to 7 L of oxygen Vitals/I&O/Wt Last Vital Signs Temp 97.7 F 11/19/23 18:00 Pulse 87 11/20/23 09:09 Resp 18 11/20/23 09:09 BP 135/87 11/20/23 09:00 Pulse Ox 88 L 11/20/23 09:09 O2 Del Method Nasal Cannula 11/20/23 09:09 O2 Flow Rate 8 11/20/23 09:09 FiO2 40 11/18/23 09:36 11/19/23 11/20/23 11/20/23 22:59 06:59 14:59 Intake Total 765 / 1450.937 100 / 1550.937 220 / 220 Output Total 1800 / 1800 750 / 2550 Balance -1035 / -349.063 -650 / -999.063 220 / 220 Weight last 48 hrs Weight 78.925 kg Physical Exam 2 Narrative: Patient looks clinically dehydrated Dry mucous membranes Currently 7 to 8 L nasal cannula Sinus rhythm Blood pressure stable Abdomen soft S1, S2 Nonfocal neuroexam Urinary Catheter Management: Norman: Cath Placed During This Visit: yes Reason for Continuing Indwelling Catheter: Accurate Measurement of Urinary Output in Critically Ill Patients Urinary Catheter Date of Insertion: 11/17/23 Urinary Catheter Time of Insertion: 23:00 Data 11/20/23 03:47 11/20/23 03:47 Micro: Microbiology 11/17/23 18:30 Gram Stain - Final Sputum - Expectorated Sputum Sputum Culture - Preliminary 11/17/23 23:05 Gram Stain - Final Sputum - Endotracheal Tube Aspirate Sputum Culture - Preliminary A&P Assessment and plan (1) Ventricular fibrillation: (2) Cardiac arrest: (3) Hypochloremic alkalosis: (4) COPD (chronic obstructive pulmonary disease) with acute bronchitis: (5) COPD with hypoxia: (6) Chronic bronchitis with acute exacerbation: (7) Pneumonia: (8) Hypoxemia: (9) Acute respiratory failure with hypoxia: (10) COPD exacerbation: (11) CHF exacerbation: Plan Cardiac risk related to hypokalemia Coronary angiogram is normal Discussed most likely electrolyte imbalance related Persistent alkalosis with hypokalemia Appreciate nephro recommendations Potassium slightly better today Dehydration with hypernatremia Clinically she does not look fluid overloaded however she has central congestion She was given Lasix yesterday Acute hypoxia related to CHF exacerbation currently on 8 L Preserve ejection fraction heart failure exacerbation Full code We can advance diet continue PT transfer out of ICU to CSU Attestations 2 Medical Necessity Statement*: Can be transferred out of ICU today Diagnoses Ventricular fibrillation I49.01 Cardiac arrest I46.9 Hypochloremic alkalosis E87.3 COPD (chronic obstructive pulmonary disease) with acute bronchitis J44.0; J20.9 COPD with hypoxia J44.9 Chronic bronchitis with acute exacerbation J20.9; J42 Pneumonia J18.9 Hypoxemia R09.02 Acute respiratory failure with hypoxia J96.01 COPD exacerbation J44.1 CHF exacerbation I50.9
[2023-11-20 12:05] LABS: Vancomycin Trough < 4.0 ug/mL (10-15)
[2023-11-20] MEDS: enoxaparin 80 mg/0.8 mL Syringe 70 MG SUBCUT ×2 (13:14→22:24)
--- NOTE | 2023-11-20 13:15 | P.PN_ITS ---
Subjective 2 Subjective: feeling better Vitals/I&O/Wt Last Vital Signs Temp 97.7 F 11/19/23 18:00 Pulse 90 11/20/23 11:00 Resp 20 H 11/20/23 11:00 BP 134/74 11/20/23 10:30 Pulse Ox 92 11/20/23 11:00 O2 Del Method High Flow Nasal Cannula 11/20/23 11:00 O2 Flow Rate 8 11/20/23 11:00 FiO2 40 11/18/23 09:36 11/19/23 11/20/23 11/20/23 22:59 06:59 14:59 Intake Total 765 / 1450.937 100 / 1550.937 220 / 220 Output Total 1800 / 1800 750 / 2550 Balance -1035 / -349.063 -650 / -999.063 220 / 220 Weight last 48 hrs Weight 78.925 kg Physical Exam 2 Const: COMMON NORMALS: no acute distress and alert Extremity: NARRATIVE EXTREMITY EXAM: no edema Neuro: SENSORIUM/ORIENTATION: Yes alert Urinary Catheter Management: Norman: Cath Placed During This Visit: yes Reason for Continuing Indwelling Catheter: Accurate Measurement of Urinary Output in Critically Ill Patients Urinary Catheter Date of Insertion: 11/17/23 Urinary Catheter Time of Insertion: 23:00 Data 11/20/23 03:47 11/20/23 03:47 Other Labs: C 7.6, albumin 2.7, Mg 2.5 Micro: Microbiology 11/17/23 18:30 Gram Stain - Final Sputum - Expectorated Sputum Sputum Culture - Preliminary 11/17/23 23:05 Gram Stain - Final Sputum - Endotracheal Tube Aspirate Sputum Culture - Preliminary ABG Interpretation 1: 11/17/23 11/18/23 11/19/23 17:16 05:22 12:50 ABG pH 7.52 H 7.49 H 7.44 ABG pCO2 58.7 H 58.9 H 68.5 H* ABG pO2 55.1 L 244.0 H 78.5 L ABG HCO3 47.6 H 44.9 H 46.4 H ABG O2 Saturation 86.2 98.4 ABG Base Excess 20.6 H 17.7 H 17.7 H My Interpretation: metabolic alk, respiratory acidosis Other data: seen via telemedicine with assitance of RN at Bedside A&P Assessment and plan (1) Hypochloremic alkalosis: Plan 1. Hypokalemic metabolic acidosis 2. Mild hypernatremia, I/O negative Rec: gentle IVF hydration overnight. continue KCl replacement Attestations 2 Medical Necessity Statement*: see above Time Spent in Patient Care: 16 - 35 minutes Coding Level of Care Code Acute Code for [facility] Fwd Diagnoses Hypochloremic alkalosis E87.3
--- NOTE | 2023-11-20 14:12 | PC.NURSE ---
Report called to GENESIS Magdaleno. Patient and belongings moved to CSU 108-1. Family at bedside.
[2023-11-20] MEDS: amoxicillin-clav 875-125 mg Tablet 1 TAB PO (18:28)
[2023-11-20] MEDS: acetaminophen 325 mg Tablet 650 MG PO (18:34)
[2023-11-20] MEDS: sodium chlor 0.45% +KCl 20 mEq 20 MEQ/1,000 ML BAG 75 MEQ IV (21:18)
[2023-11-21] VITALS (12 sets, daily range): BP systolic 138–157; BP diastolic 83–99; PULSE 89–101; RESP 17–20; TEMP 36.9–37.6; O2SAT 90–96
[2023-11-21 04:10] LABS: Basophils % 0.2 %; Eosinophils % 0.1 %; Hematocrit 54.2 % (36-47); Lymphocytes % 11.5 %; Mean Corpuscular HGB Conc 29.9 g/dL (30-55); Mean Corpuscular Hemoglobin 31.5 pg (27-33); Mean Corpuscular Volume 105.4 fl (85-98); Mean Platelet Volume 11.3 fL (7.4-10.4); Monocytes # 0.4 10^3/uL (0.2-0.9); Monocytes % 4.9 %; Neutrophils # 6.87 10^3/uL (1.8-7.7); Neutrophils % 82.9 %; Nucleated Red Blood Cells % 0 %; Platelet Count 237 10^3/cmm (157-399); Red Blood Count 5.14 10^6/uL (3.85-5.65); Red Cell Distribution Width 17.4 % (12.1-15.1); White Blood Count 8.29 10^3/uL (3.29-11.43)
[2023-11-21] MEDS: ipratropium 0.5 mg/2.5 mL Neb INHALATION ×2 (04:40→08:57)
[2023-11-21] MEDS: levalbuterol 0.63 mg/3 mL Neb INHALATION ×2 (04:40→08:57)
[2023-11-21 04:43] LABS: Anion Gap 3.8 (5-19); Blood Urea Nitrogen 9 mg/dL (8-23); Calcium 8.1 mg/dL (8.5-10.5); Chloride 97 mmol/L (98-107); Glomerular Filtration Rate 162.8 mL/min (90-130); Glucose 114 mg/dL (65-115); Osmolality Calculated 300 mOsm/kg (285-295); Potassium 3.8 mmol/L (3.5-5.1); Sodium 145 mmol/L (136-145)
[2023-11-21 04:48] LABS: Carbon Dioxide 48 mmol/L (22-29)
[2023-11-21] MEDS: levoFLOXacin 750 mg Tablet PO (05:14)
--- NOTE | 2023-11-21 09:07 | P.PN_ITS ---
Subjective 2 Subjective: Patient is on 8 L Will request chest x-ray Will give 1 dose of acetazolamide Patient endorsing feeling better Vitals/I&O/Wt Last Vital Signs Temp 99.7 F H 11/21/23 07:05 Pulse 93 11/21/23 08:00 Resp 18 11/21/23 08:00 BP 141/93 11/21/23 07:05 Pulse Ox 94 11/21/23 08:00 O2 Del Method High Flow Nasal Cannula 11/21/23 08:00 O2 Flow Rate 8 11/21/23 08:00 FiO2 40 11/18/23 09:36 11/20/23 11/21/23 11/21/23 22:59 06:59 14:59 Intake Total 1000 / 1460 236 / 236 Output Total 1050 / 1850 950 / 2800 600 / 600 Balance -50 / -390 -950 / -1340 -364 / -364 Weight last 48 hrs Weight 78.471 kg Physical Exam 2 Narrative: Patient sitting in her bed Currently on 8 L Awake and alert Crackles with rhonchi positive Abdomen soft S1, S2 sinus rhythm hemodynamically stable Pleasant cooperative nonfocal neuroexam Urinary Catheter Management: Norman: Cath Placed During This Visit: yes Reason for Continuing Indwelling Catheter: Accurate Measurement of Urinary Output in Critically Ill Patients Urinary Catheter Date of Insertion: 11/17/23 Urinary Catheter Time of Insertion: 23:00 Data 11/21/23 03:43 11/21/23 03:43 Micro: Microbiology 11/17/23 18:30 Gram Stain - Final Sputum - Expectorated Sputum Sputum Culture - Final 11/17/23 23:05 Gram Stain - Final Sputum - Endotracheal Tube Aspirate Sputum Culture - Final A&P Assessment and plan (1) OMID (generalized anxiety disorder): (2) CHF exacerbation: (3) Cardiac arrest: (4) Ventricular fibrillation: (5) Hypokalemia: (6) Hypochloremic alkalosis: (7) COPD (chronic obstructive pulmonary disease) with acute bronchitis: (8) COPD with hypoxia: (9) Acute respiratory failure with hypoxia: Plan V-fib cardiac arrest related to low potassium No need of AICD as per cardio Acute CHF exacerbation Clinically does not look fluid overloaded however x-ray showed vascular congestion Will repeat x-ray today Will give 1 dose of acetazolamide for alkalosis Hypokalemia: Improving Appreciate nephro recommendation Right aldosterone ratio level pending Pneumonia: Continue antibiotics Persistent hypoxia: Currently on 8 L wean oxygen down, repeat x-ray today, I have encouraged patient to get out of bed and walk around Remove Norman catheter Cardiac diet Continue PT Attestations 2 Medical Necessity Statement*: Continue medical management Diagnoses OMID (generalized anxiety disorder) F41.1 CHF exacerbation I50.9 Cardiac arrest I46.9 Ventricular fibrillation I49.01 Hypokalemia E87.6 Hypochloremic alkalosis E87.3 COPD (chronic obstructive pulmonary disease) with acute bronchitis J44.0; J20.9 COPD with hypoxia J44.9 Acute respiratory failure with hypoxia J96.01
--- NOTE | 2023-11-21 09:07 | XRR_ITS ---
PROCEDURE INFORMATION: Exam: XR Chest Exam date and time: 11/21/2023 10:27 AM Age: 58 years old Clinical indication: Shortness of breath; Additional info: Hypoxia TECHNIQUE: Imaging protocol: Radiologic exam of the chest. Views: 1 view. COMPARISON: CR XR chest 1V portable [id number] 11/19/2023 9:17 AM FINDINGS: Lungs: Increased bilateral pulmonary edema and/or pneumonitis with superimposed basilar atelectasis. Pleural spaces: [id number] bilateral pleural effusions are increased. No pneumothorax. Heart/Mediastinum: Heart borders are mostly obscured. Bones/joints: Unremarkable. XR/XR chest 1V portable [id number] IMPRESSION: 1. Increased moderate-large bilateral pleural effusions. 2. Increased bilateral pulmonary edema and/or pneumonitis with increased bibasilar atelectasis.
[2023-11-21] MEDS: acetaZOLAMIDE 250 mg Tablet 500 MG PO (09:29)
[2023-11-21] MEDS: nicotine 21 mg Patch 1 PATCH TRANSDERMA (09:30)
[2023-11-21] MEDS: aspirin 81 mg EC Tablet PO (09:30)
[2023-11-21] MEDS: potassium chloride ER 20 mEq Tablet 40 MEQ PO ×3 (09:30→20:44)
[2023-11-21] MEDS: multivitamin therapeutic Tablet 1 TAB PO (09:30)
[2023-11-21] MEDS: thiamine 100 mg Tablet PO (09:30)
[2023-11-21] MEDS: amoxicillin-clav 875-125 mg Tablet 1 TAB PO ×2 (09:30→17:22)
[2023-11-21] MEDS: folic acid 1 mg Tablet PO (09:30)
--- NOTE | 2023-11-21 10:54 | P.PN_ITS ---
Subjective 2 Subjective: states she feels better Vitals/I&O/Wt Last Vital Signs Temp 99.7 F H 11/21/23 07:05 Pulse 93 11/21/23 08:00 Resp 18 11/21/23 08:00 BP 141/93 11/21/23 07:05 Pulse Ox 94 11/21/23 08:00 O2 Del Method High Flow Nasal Cannula 11/21/23 08:00 O2 Flow Rate 8 11/21/23 08:00 FiO2 40 11/18/23 09:36 11/20/23 11/21/23 11/21/23 22:59 06:59 14:59 Intake Total 1000 / 1460 236 / 236 Output Total 1050 / 1850 950 / 2800 600 / 600 Balance -50 / -390 -950 / -1340 -364 / -364 Weight last 48 hrs Weight 78.471 kg Physical Exam 2 Const: COMMON NORMALS: no acute distress and alert Neuro: SENSORIUM/ORIENTATION: Yes alert Urinary Catheter Management: Norman: Cath Placed During This Visit: yes Reason for Continuing Indwelling Catheter: Accurate Measurement of Urinary Output in Critically Ill Patients Urinary Catheter Date of Insertion: 11/17/23 Urinary Catheter Time of Insertion: 23:00 Data 11/21/23 03:43 11/21/23 03:43 Micro: Microbiology 11/17/23 18:30 Gram Stain - Final Sputum - Expectorated Sputum Sputum Culture - Final 11/17/23 23:05 Gram Stain - Final Sputum - Endotracheal Tube Aspirate Sputum Culture - Final Other data: Seen via telemedicine with assistance of RN at bedside A&P Assessment and plan (1) Hypochloremic alkalosis: Plan 1. Hypokalemic metabolic acidosis 2. Mild hypernatremia, improved, good urine output Rec:discontinue IVF hydration. increase KCl replacement Attestations 2 Medical Necessity Statement*: see above Time Spent in Patient Care: 16 - 35 minutes Coding Level of Care Code Acute Code for Chg Fwd Diagnoses Hypochloremic alkalosis E87.3
[2023-11-21] MEDS: enoxaparin 80 mg/0.8 mL Syringe 70 MG SUBCUT ×2 (12:25→23:38)
[2023-11-21 15:30] LABS: Methicillin-Resist S.aureu PCR NOT DETECTED (NOT DETECTED)
[2023-11-22] VITALS (9 sets, daily range): BP systolic 100–154; BP diastolic 61–103; PULSE 96–107; RESP 16–22; TEMP 36.6–37.3; O2SAT 91–96
[2023-11-22] MEDS: levoFLOXacin 750 mg Tablet PO (05:31)
[2023-11-22 05:55] LABS: Basophils % 0.3 %; Eosinophils # 0.1 10^3/uL (0.0-0.8); Eosinophils % 1.7 %; Lymphocytes # 0.7 10^3/uL (0.8-4.8); Mean Corpuscular HGB Conc 30.2 g/dL (30-55); Mean Corpuscular Volume 102.8 fl (85-98); Mean Platelet Volume 11.7 fL (7.4-10.4); Monocytes # 0.5 10^3/uL (0.2-0.9); Monocytes % 7.2 %; Neutrophils # 5.82 10^3/uL (1.8-7.7); Neutrophils % 80.4 %; Nucleated Red Blood Cells % 0 %; Platelet Count 247 10^3/cmm (157-399); Red Blood Count 5.45 10^6/uL (3.85-5.65); Red Cell Distribution Width 16.9 % (12.1-15.1); White Blood Count 7.23 10^3/uL (3.29-11.43)
[2023-11-22 06:17] LABS: Anion Gap 7.5 (5-19); Blood Urea Nitrogen 5 mg/dL (8-23); Calcium 8.5 mg/dL (8.5-10.5); Chloride 98 mmol/L (98-107); Glomerular Filtration Rate 162.8 mL/min (90-130); Glucose 111 mg/dL (65-115); Osmolality Calculated 298 mOsm/kg (285-295); Potassium 3.5 mmol/L (3.5-5.1); Sodium 145 mmol/L (136-145)
[2023-11-22 06:21] LABS: Carbon Dioxide 43 mmol/L (22-29)
[2023-11-22] MEDS: amoxicillin-clav 875-125 mg Tablet 1 TAB PO ×2 (08:47→17:21)
[2023-11-22] MEDS: aspirin 81 mg EC Tablet PO (08:47)
[2023-11-22] MEDS: thiamine 100 mg Tablet PO (08:48)
[2023-11-22] MEDS: potassium chloride ER 20 mEq Tablet 40 MEQ PO ×3 (08:48→20:05)
[2023-11-22] MEDS: folic acid 1 mg Tablet PO (08:48)
[2023-11-22] MEDS: nicotine 21 mg Patch 1 PATCH TRANSDERMA (08:48)
[2023-11-22] MEDS: multivitamin therapeutic Tablet 1 TAB PO (08:48)
[2023-11-22] MEDS: bumetanide 0.25 mg/mL SDV 10 mL 2 MG IVP (09:11)
--- NOTE | 2023-11-22 10:34 | P.PN_ITS ---
Subjective 2 Subjective: Patient is resting comfortably Currently on 6 L nasal cannula Chest x-ray showing congestion Will give another dose of Lasix Vitals/I&O/Wt Last Vital Signs Temp 98.3 F 11/22/23 07:05 Pulse 101 H 11/22/23 08:12 Resp 16 11/22/23 08:12 BP 137/91 11/22/23 07:05 Pulse Ox 92 11/22/23 08:12 O2 Del Method High Flow Nasal Cannula 11/22/23 08:12 O2 Flow Rate 6 11/22/23 08:12 FiO2 40 11/18/23 09:36 11/21/23 11/22/23 11/22/23 22:59 06:59 14:59 Intake Total 830 / 2426 480 / 2906 Balance 830 24 480 / 456 Weight last 48 hrs Weight 72.983 kg Weight 78.471 kg Physical Exam 2 Narrative: Pleasant cooperative No significant fluid overload clinically Resting comfortably Currently on 6 L Norman cath removed Abdomen soft Nonfocal neuroexam GCS 15 Urinary Catheter Management: Norman: Cath Placed During This Visit: yes, but has since been removed by the nurse Reason for Continuing Indwelling Catheter: Decision to DC Catheter Urinary Catheter Date of Insertion: 11/17/23 Urinary Catheter Time of Insertion: 23:00 Date Urinary Catheter Removed: 11/21/23 Time Urinary Catheter Discontinued: 13:00 Data 11/22/23 05:20 11/22/23 05:20 A&P Assessment and plan (1) OMID (generalized anxiety disorder): (2) Benign essential hypertension: (3) CHF exacerbation: (4) Cardiac arrest: (5) Ventricular fibrillation: (6) Hypokalemia: (7) Hypochloremic alkalosis: (8) Urinary incontinence: Qualifiers: Urinary Incontinence type: mixed stress and urge incontinence Qualified Code(s): N39.46 - Mixed incontinence (9) COPD (chronic obstructive pulmonary disease) with acute bronchitis: (10) COPD with hypoxia: (11) Acute respiratory failure with hypoxia: (12) Pneumonia: Plan Potassium is better 3 times a day regimen Appreciate nephro recommendations Cardiac arrest arrest post ROSC Nonfocal neuroexam Hypoxia related to CHF exacerbation and pneumonia continue antibiotics give another dose of Lasix today Preserved ejection fraction heart exacerbation signs improving Will request thoracentesis for bilateral pleural effusion currently she is on 6 L I am planning to send her home in next 24 to 48 hours once oxygen requirement is below 5 L Patient is noncompliant with her fluid restriction I see a lot of soda cans in the room Attestations 2 Medical Necessity Statement*: Continue medical management Diagnoses OMID (generalized anxiety disorder) F41.1 Benign essential hypertension I10 CHF exacerbation I50.9 Cardiac arrest I46.9 Ventricular fibrillation I49.01 Hypokalemia E87.6 Hypochloremic alkalosis E87.3 Mixed stress and urge urinary incontinence N39.46 Urinary Incontinence type: mixed stress and urge incontinence COPD (chronic obstructive pulmonary disease) with acute bronchitis J44.0; J20.9 COPD with hypoxia J44.9 Acute respiratory failure with hypoxia J96.01 Pneumonia J18.9
[2023-11-22] MEDS: acetaZOLAMIDE 250 mg Tablet PO (11:20)
--- NOTE | 2023-11-22 16:17 | P.PN_ITS ---
Subjective 2 Subjective: no new c/o Medications: Reviewed: Yes Vitals/I&O/Wt Last Vital Signs Temp 98.2 F 11/22/23 11:08 Pulse 102 H 11/22/23 11:08 Resp 22 H 11/22/23 11:08 BP 131/82 11/22/23 11:08 Pulse Ox 96 11/22/23 11:08 O2 Del Method Nasal Cannula 11/22/23 11:08 O2 Flow Rate 6 11/22/23 08:12 FiO2 40 11/18/23 09:36 11/22/23 11/22/23 11/22/23 06:59 14:59 22:59 Intake Total 480 / 2906 360 / 360 Balance 480 / 456 360 / 360 Weight last 48 hrs Weight 72.983 kg Weight 78.471 kg Physical Exam 2 Const: COMMON NORMALS: no acute distress and alert Neuro: SENSORIUM/ORIENTATION: Yes alert Urinary Catheter Management: Norman: Cath Placed During This Visit: yes, but has since been removed by the nurse Reason for Continuing Indwelling Catheter: Decision to DC Catheter Urinary Catheter Date of Insertion: 11/17/23 Urinary Catheter Time of Insertion: 23:00 Date Urinary Catheter Removed: 11/21/23 Time Urinary Catheter Discontinued: 13:00 Data 11/22/23 05:20 11/23/23 03:18 A&P Assessment and plan (1) Hypochloremic alkalosis: 1. Hypokalemia associated with hypochloremic metabolic alkalosis: This may very well could be due to poor p.o. intake for prolonged period of time. Denies nausea vomiting or diarrhea. No diuretic use , denies laxative abuse. other differential include - salt-losing tubulopathies ( Barters , Gilttelmans and Jose Ramon syndromes ) , mineralocorticoid excess - on scheduled KCL40 MEQ TID -Urine electrolytes noted - not clearly consistent with specific dx - will give atrial of aldactone -Check renin and aldosterone levels-pending 2. Status postcardiac [id number] arrest 3. Elevated troponin-, left heart cath showed no ischemic disease 3. Hypoalbuminemia, will give few doses of albumin, encourage p.o. intake 4. History of COPD Patient evaluated using audiovisual cart. Time spent 20 minutes (2) Hypokalemia: Attestations 2 Medical Necessity Statement*: per medicine Coding Level of Care Code Acute Code for Chg Fwd Diagnoses Hypochloremic alkalosis E87.3 Hypokalemia E87.6
[2023-11-23] VITALS (10 sets, daily range): BP systolic 117–155; BP diastolic 67–100; PULSE 91–109; RESP 16–17; TEMP 36.3–37.1; O2SAT 91–95
[2023-11-23 04:25] LABS: Anion Gap 10.5 (5-19); Blood Urea Nitrogen 8 mg/dL (8-23); Calcium 8.6 mg/dL (8.5-10.5); Carbon Dioxide 40 mmol/L (22-29); Chloride 98 mmol/L (98-107); Glomerular Filtration Rate 125.9 mL/min (90-130); Glucose 108 mg/dL (65-115); Osmolality Calculated 299 mOsm/kg (285-295); Potassium 3.5 mmol/L (3.5-5.1); Sodium 145 mmol/L (136-145)
--- NOTE | 2023-11-23 06:00 | US_ITS ---
WS: [id number] Ultrasound chest, bilateral. HISTORY: Evaluate pleural effusions. Chest radiograph 11/21/2023. Very small bilateral pleural effusions are identified. The RIGHT effusion is slightly greater than th e LEFT. Maximum diameter is 2.0 cm of the RIGHT effusion. There is a small amount of atelectatic lung within both effusions. Impression: Very small bilateral pleural effusions. No thoracentesis will be performed today. Findings discussed with Dr. Mullen.
--- NOTE | 2023-11-23 06:58 | PC.NURSE ---
reviewed chart and agree with documentation by the nurse resident
[2023-11-23] MEDS: multivitamin therapeutic Tablet 1 TAB PO (09:11)
[2023-11-23] MEDS: spironolactone 25 mg Tablet PO (09:11)
[2023-11-23] MEDS: folic acid 1 mg Tablet PO (09:11)
[2023-11-23] MEDS: aspirin 81 mg EC Tablet PO (09:11)
[2023-11-23] MEDS: potassium chloride ER 20 mEq Tablet 40 MEQ PO ×2 (09:11→18:03)
[2023-11-23] MEDS: thiamine 100 mg Tablet PO (09:11)
[2023-11-23] MEDS: amoxicillin-clav 875-125 mg Tablet 1 TAB PO ×2 (09:11→18:03)
[2023-11-23] MEDS: nicotine 21 mg Patch 1 PATCH TRANSDERMA (09:11)
--- NOTE | 2023-11-23 09:47 | P.PN_ITS ---
Subjective 2 Subjective: on 4L o2 BY il Medications: Reviewed: Yes Vitals/I&O/Wt Last Vital Signs Temp 98.0 F 11/23/23 07:31 Pulse 103 H 11/23/23 08:22 Resp 16 11/23/23 08:22 BP 117/83 11/23/23 07:31 Pulse Ox 95 11/23/23 08:22 O2 Del Method High Flow Nasal Cannula 11/23/23 08:22 O2 Flow Rate 5 11/23/23 08:22 FiO2 40 11/18/23 09:36 11/22/23 11/23/23 11/23/23 22:59 06:59 14:59 Intake Total 100 / 460 60 / 520 Output Total 0 / 0 Balance 100 / 460 60 / 520 Weight last 48 hrs Weight 69.967 kg Weight 72.983 kg Physical Exam 2 Const: COMMON NORMALS: no acute distress and alert Neuro: SENSORIUM/ORIENTATION: Yes alert Urinary Catheter Management: Norman: Cath Placed During This Visit: yes, but has since been removed by the nurse Reason for Continuing Indwelling Catheter: Decision to DC Catheter Urinary Catheter Date of Insertion: 11/17/23 Urinary Catheter Time of Insertion: 23:00 Date Urinary Catheter Removed: 11/21/23 Time Urinary Catheter Discontinued: 13:00 Data 11/22/23 05:20 11/23/23 03:18 Micro: Microbiology 11/17/23 19:08 Blood Culture - Final Blood NO GROWTH AFTER 5 DAYS 11/17/23 19:03 Blood Culture - Final Blood NO GROWTH AFTER 5 DAYS A&P Assessment and plan (1) Hypochloremic alkalosis: 1. Hypokalemia associated with hypochloremic metabolic alkalosis: This may very well could be due to poor p.o. intake for prolonged period of time. Denies nausea vomiting or diarrhea. No diuretic use , denies laxative abuse. other differential include - salt-losing tubulopathies ( Barters , Gilttelmans and Jose Ramon syndromes ) , mineralocorticoid excess - on scheduled KCL40 MEQ TID -Urine electrolytes noted - not clearly consistent with specific dx - added aldactone 25 mg daily , - ordered 1 dose IV lasix -Check renin and aldosterone levels-pending 2. Status postcardiac [id number] arrest 3. Elevated troponin-, left heart cath showed no ischemic disease 3. Hypoalbuminemia, will give few doses of albumin, encourage p.o. intake 4. History of COPD Patient evaluated using audiovisual cart. Time spent 20 minutes (2) Hypokalemia: Attestations 2 Medical Necessity Statement*: per danna Coding Level of Care Code Acute Code for Chg Fwd Diagnoses Hypochloremic alkalosis E87.3 Hypokalemia E87.6
--- NOTE | 2023-11-23 09:58 | P.PN_ITS ---
Subjective 2 Subjective: Patient doing well Plan for thoracentesis today Patient is n.p.o. Spoke with Dr. Villarreal Currently on 5 L, saturating 92% Spoke with Dr. Trinidad who recommended potassium twice a day regimen and recheck her BMP tomorrow Vitals/I&O/Wt Last Vital Signs Temp 98.0 F 11/23/23 07:31 Pulse 103 H 11/23/23 08:22 Resp 16 11/23/23 08:22 BP 117/83 11/23/23 07:31 Pulse Ox 95 11/23/23 08:22 O2 Del Method High Flow Nasal Cannula 11/23/23 08:22 O2 Flow Rate 5 11/23/23 08:22 FiO2 40 11/18/23 09:36 11/22/23 11/23/23 11/23/23 22:59 06:59 14:59 Intake Total 100 / 460 60 / 520 Output Total 0 / 0 Balance 100 / 460 60 / 520 Weight last 48 hrs Weight 69.967 kg Weight 72.983 kg Physical Exam 2 Narrative: Awake and alert signs of fluid overload improving Right-sided breath sounds are diminished as compared to left Currently on 5 L GCS 15 No active chest pain Complain of soreness Dry mucous membranes Pleasant and cooperative Urinary Catheter Management: Norman: Cath Placed During This Visit: yes, but has since been removed by the nurse Reason for Continuing Indwelling Catheter: Decision to DC Catheter Urinary Catheter Date of Insertion: 11/17/23 Urinary Catheter Time of Insertion: 23:00 Date Urinary Catheter Removed: 11/21/23 Time Urinary Catheter Discontinued: 13:00 Data 11/22/23 05:20 11/23/23 03:18 Micro: Microbiology 11/17/23 19:08 Blood Culture - Final Blood NO GROWTH AFTER 5 DAYS 11/17/23 19:03 Blood Culture - Final Blood NO GROWTH AFTER 5 DAYS A&P Assessment and plan (1) OMID (generalized anxiety disorder): (2) Benign essential hypertension: (3) Cardiac arrest: (4) Ventricular fibrillation: (5) Dyslipidemia: (6) History of vitamin D deficiency: (7) Elevated liver transaminase level: (8) Hypokalemia: (9) Hypochloremic alkalosis: (10) COPD (chronic obstructive pulmonary disease) with acute bronchitis: (11) Hypoxemia: (12) Acute respiratory failure with hypoxia: (13) COPD exacerbation: Plan Plan to discharge her tomorrow Thoracentesis today Currently on 5 L Patient will go home Tolerating diet Currently on Augmentin for pneumonia Spironolactone added along twice a day regimen for potassium Plan to discharge her home by tomorrow Full code Cardiac diet can be started after thoracentesis She is also tachycardic today Attestations 2 Medical Necessity Statement*: Discharge likely tomorrow Diagnoses OMID (generalized anxiety disorder) F41.1 Benign essential hypertension I10 Cardiac arrest I46.9 Ventricular fibrillation I49.01 Dyslipidemia E78.5 History of vitamin D deficiency Z86.39 Elevated liver transaminase level R74.01 Hypokalemia E87.6 Hypochloremic alkalosis E87.3 COPD (chronic obstructive pulmonary disease) with acute bronchitis J44.0; J20.9 Hypoxemia R09.02 Acute respiratory failure with hypoxia J96.01 COPD exacerbation J44.1
[2023-11-23 11:23] LABS: D Dimer 2.13 ug/mLFEU (0-0.59)
[2023-11-23] MEDS: FUROsemide 10 mg/mL SDV 10mL 80 MG IVP (15:14)
[2023-11-24] VITALS (7 sets, daily range): BP systolic 109–123; BP diastolic 64–76; PULSE 95–105; RESP 16–20; TEMP 36.6–37.2; O2SAT 87–94
[2023-11-24 04:07] LABS: Anion Gap 11.4 (5-19); Blood Urea Nitrogen 9 mg/dL (8-23); Calcium 8.7 mg/dL (8.5-10.5); Carbon Dioxide 37 mmol/L (22-29); Chloride 93 mmol/L (98-107); Glomerular Filtration Rate 125.9 mL/min (90-130); Glucose 140 mg/dL (65-115); Osmolality Calculated 287 mOsm/kg (285-295); Potassium 3.4 mmol/L (3.5-5.1); Sodium 138 mmol/L (136-145)
--- NOTE | 2023-11-24 06:30 | PC.NURSE ---
I have reviewed and agree with the charting of Nurse resident Willis.
--- NOTE | 2023-11-24 07:55 | CT_ITS ---
WS: [id number] CTA OF THE CHEST WITH PULMONARY EMBOLISM PROTOCOL TECHNIQUE: High-resolution contrast enhanced CTA of the chest with coronal and sagittal reformatted i patricios with pulmonary embolism protocol. MIP images are also reviewed. CLINICAL INFORMATION: hypoxia COMPARISON: CT 11/17/2023 DLP: 323.[address] scans at [facility] use at least one of these dose optimization techniques: automated e xposure control; mA and/or kV adjustment per patient size (includes targeted exams where dose is matc hed to clinical indication); or iterative reconstruction. FINDINGS: Proximal main pulmonary arteries are normal. Normal segmental and subsegmental pulmonary arteries. No evidence of pulmonary embolus. Tiny pericardial effusion. Moderate chronic emphysematous changes. Sm all RIGHT greater than LEFT pleural effusions. Compressive atelectasis in the lung bases. Normal marlen kriss thoracic aorta. No mediastinal or hilar lymphadenopathy. No axillary lymphadenopathy. Adrenal glands are normal. Normal GE junction. Stable LEFT hepatic cyst. Stable 2.5 cm LEFT thyroid n odule. IMPRESSION: 1. No evidence of pulmonary embolus. 2. Prominent main pulmonary arteries can be seen with pulmonary arterial hypertension unchanged. 3. Small RIGHT greater than LEFT pleural effusions with compressive atelectasis in the lung bases. R IGHT pleural effusion is stable. Small LEFT pleural effusion has increased in size. 4. Previously described subsegmental atelectasis in the RIGHT middle lobe is essentially resolved. 5. Tiny pericardial effusion. 6. No mediastinal or hilar lymphadenopathy.
--- NOTE | 2023-11-24 07:56 | USCV_ITS ---
Linda Alejandra Age: 58 Gender: F : 1965 Exam Date: 11/24/2023 08:46 Ordering Phys: Irene Mullen MD Technologist: Exam Location: [facility] [place] Indication: positive d dimer PROCEDURES: The venous duplex Doppler examination of both lower extremities was performed in the standard fashion. The following venous structures were evaluated: common femoral vein, profunda vein, proximal portion of the greater saphenous vein, superficial femoral vein, and the popliteal vein. In addition, the posterior tibial and peroneal trunk were evaluated. FINDINGS: Normal 2-D Doppler and augmentation and compressibility throughout the lower extremity venous structures. Additional imaging through the proximal calf veins also reveals no thrombus. Limited evaluation of the greater saphenous vein is patent with no thrombus. CONCLUSIONS No evidence of right lower extremity DVT. No evidence of left lower extremity DVT. Stan Nicole MD (Electronically Signed) Final Date: 24 November 2023 12:00 S
[2023-11-24] MEDS: multivitamin therapeutic Tablet 1 TAB PO (08:53)
[2023-11-24] MEDS: amoxicillin-clav 875-125 mg Tablet 1 TAB PO (08:53)
[2023-11-24] MEDS: aspirin 81 mg EC Tablet PO (08:53)
[2023-11-24] MEDS: nicotine 21 mg Patch 1 PATCH TRANSDERMA (08:53)
[2023-11-24] MEDS: folic acid 1 mg Tablet PO (08:54)
[2023-11-24] MEDS: spironolactone 25 mg Tablet PO (08:54)
[2023-11-24] MEDS: thiamine 100 mg Tablet PO (08:54)
[2023-11-24] MEDS: potassium chloride ER 20 mEq Tablet 40 MEQ PO (08:54)
--- NOTE | 2023-11-24 09:35 | PM.DCS ---
Discharge Providers Date of Admission: 11/17/23 21:22 Date of Discharge: November 24, 2023 Attending Provider at Admission: Nishant Meyer Attending Provider at Discharge: Irene Mullen MD Primary Care Provider: Michael Stafford MD Diagnoses at Discharge Discharge Diagnosis (1) Hypochloremic alkalosis: Status: Acute (2) Hypokalemia: Status: Acute Reason for Visit Reason for Visit: sent by gagan pelaez, low O2 Hospital Course Hospital Course 66 female who was admitted for management evaluation of generalized weakness, hypoxia, and pneumonia, she is an active smoker, shortly after admission patient had a cardiac arrest, 2 rounds of CPR were done before ROSC, she was intubated, her potassium was 1.9 which was replenished aggressively, CTA chest did not show any signs of PE, will rule out all the reversible causes, her coronaries were fine angiogram showed nonobstructive coronaries, likely etiology for her V-fib cardiac arrest was severe hypokalemia she consistently remain alkalotic with hypochloremia I consulted nephro who recommended twice a day potassium supplementation they were not concerned about genetic disorder of Bartter or Gettleman because her previous creatinine levels and potassium levels were normal. Patient developed pneumonia along vascular congestion required 4 to 5 L of oxygen with intermittent BiPAP for atelectasis, her oxygen requirement is high up to 10 L which we gradually transition down with use of BiPAP and Lasix, thoracentesis was canceled because there was not enough fluid to be drained echo showed preserved ejection fraction, considering high D-dimer I will repeat her CTA chest and venous Doppler before her discharge from the hospital. 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 Davis in 6-8 weeks She has remained in sinus rhythm, afebrile, tolerating diet. Cultures are negative She has no focal deficit, no neurological deficit from cardiac arrest. Cardiology has not recommended AICD because her etiology is related to electrolytes instead of cardiac in origin. Physical Exam Narrative: Awake and alert Currently on 4 L GCS 15 awake alert signs of fluid load improving right-sided diminished breath sounds Pleasant cooperative Able to walk without an difficulty Urinary Catheter Management: Norman: Cath Placed During This Visit: yes, but has since been removed by the nurse Reason for Continuing Indwelling Catheter: Decision to DC Catheter Urinary Catheter Date of Insertion: 11/17/23 Urinary Catheter Time of Insertion: 23:00 Date Urinary Catheter Removed: 11/21/23 Time Urinary Catheter Discontinued: 13:00 Discharge Data Studies Completed and Pending Completed Studies During Hospitalization Category Date Time Status CT angio chest PE protcl [id number] Stat Cat Scan 11/17/23 17:34 Completed CXRP [XR chest 1V portable [id number]] Stat Exams 11/19/23 09:00 Completed XR chest 1V portable [id number] Routine Exams 11/21/23 09:07 Completed XR chest 1V portable [id number] Stat Exams 11/17/23 17:18 Completed XR chest 1V portable [id number] Stat Exams 11/17/23 23:22 Completed CV. echo complete* [id number] Stat Ultrasound 11/18/23 22:46 Completed US chest [id number] Routine Ultrasound 11/23/23 06:00 Completed US gall bladder [id number] Routine Ultrasound 11/18/23 23:51 Completed Pending at discharge Category Date Time Status CTA PE [CT angio chest PE protcl [id number]] Routine Cat Scan 11/24/23 07:55 Ordered CATTLE FARMER request for service Routine Exams 11/19/23 11:30 Taken Aldosterone Routine Lab 11/19/23 04:26 Received Cell Count w Diff Pleural Fld Routine Lab 11/22/23 10:35 Uncollected Cyto Order Verification Routine Lab 11/22/23 10:36 Ordered LDH Pleural Fluid Routine Lab 11/22/23 10:35 Uncollected RENIN [Plasma Renin Activity LC/MS/MS] Routine Lab 11/19/23 11:59 Received Total Protein Pleural Fluid Routine Lab 11/22/23 10:35 Uncollected pH Pleural Fluid Routine Lab 11/22/23 10:35 [place] [id number] Routine Ultrasound 11/24/23 07:56 Taken Radiology Impressions Chest CTA 11/17/23 17:34 IMPRESSION: 1. No evidence of PE or acute aortic abnormality. 2. Mild interstitial pulmonary edema and small-moderate right-sided pleural effusion. No convincing evidence of pneumonia. 3. Dilation of the pulmonary trunk suggesting pulmonary arterial hypertension. 4. Right middle lobe segmental atelectasis. 5. Few prominent mediastinal and enlarged right hilar nodes, favored to be secondary to lymphovascular congestion. Consider follow-up CT of the chest in 4-6 weeks to assess for resolution. 6. Moderate emphysematous changes. Correlation with patient history is recommended to evaluate whether the patient may benefit from annual outpatient low-dose screening CT of the chest. 7. Left-sided thyroid nodule measuring 3 cm. Correlation with thyroid function tests and follow-up outpatient thyroid ultrasound is recommended. Chest X-Ray 11/21/23 09:07 IMPRESSION: 1. Increased moderate-large bilateral pleural effusions. 2. Increased bilateral pulmonary edema and/or pneumonitis with increased bibasilar atelectasis. Laboratory Results WBC 7.23 10^3/uL (3.29-11.43) 11/22/23 05:20 RBC 5.45 10^6/uL (3.85-5.65) 11/22/23 05:20 Hgb 16.90 g/dL (11.27-16.99) 11/22/23 05:20 Hct 56.0 % (36-47) H 11/22/23 05:20 MCV 102.8 fl (85-98) H 11/22/23 05:20 MCH 31.0 pg (27-33) 11/22/23 05:20 MCHC 30.2 g/dL (30-55) 11/22/23 05:20 RDW 16.9 % (12.1-15.1) H 11/22/23 05:20 Plt Count 247 10^3/cmm (157-399) 11/22/23 05:20 MPV 11.7 fL (7.4-10.4) H 11/22/23 05:20 Neut % (Auto) 80.4 % 11/22/23 05:20 Lymph % (Auto) 10.0 % 11/22/23 05:20 Tompkins % (Auto) 7.2 % 11/22/23 05:20 Eos % (Auto) 1.7 % 11/22/23 05:20 Baso % (Auto) 0.3 % 11/22/23 05:20 Neut # (Auto) 5.82 10^3/uL (1.8-7.7) 11/22/23 05:20 Lymph # (Auto) 0.7 10^3/uL (0.8-4.8) L 11/22/23 05:20 Tompkins # (Auto) 0.5 10^3/uL (0.2-0.9) 11/22/23 05:20 Eos # (Auto) 0.1 10^3/uL (0.0-0.8) 11/22/23 05:20 Baso # (Auto) 0.0 10^3/uL (0.0-0.1) 11/22/23 05:20 Nucleated RBC % (auto) 0 % 11/22/23 05:20 Nucleated RBCs # 0.0 /100WBC 11/22/23 05:20 PT 14.30 SECONDS (12.1-14.9) 11/17/23 22:45 INR 1.08 (0.8-1.2) 11/17/23 22:45 D-Dimer 2.13 ug/mLFEU (0-0.59) H 11/23/23 10:48 Specimen Type Arterial 11/19/23 12:50 Sample Site Radial, left 11/19/23 12:50 ABG pH 7.44 (7.35-7.45) 11/19/23 12:50 ABG pCO2 68.5 mmHg (35-45) H* 11/19/23 12:50 ABG pO2 78.5 mmHg (80.0-100.0) L 11/19/23 12:50 ABG PO2/FiO2 Ratio 0 11/18/23 05:22 ABG HCO3 46.4 mmol/L (22-26) H 11/19/23 12:50 ABG O2 Saturation 98.4 11/18/23 05:22 ABG Base Excess 17.7 mmol/L (-2.0-2.0) H 11/19/23 12:50 Baljeet Test Pos 11/19/23 12:50 A-a O2 Gradient 42.3 mmHg (5-10) H 11/18/23 05:22 Hematocrit 48.8 % (37-47) H 11/19/23 12:50 Hgb O2 Saturation 97.5 % (95-100) 11/18/23 05:22 Carboxyhemoglobin 0.2 %THgb (0.4-20.1) L 11/18/23 05:22 Methemoglobin 0.6 % (0.4-1.5) 11/18/23 05:22 Total Hemoglobin 16.3 g/dL (12-16) H 11/18/23 05:22 Sodium 142.0 mmol/L (131-143) 11/18/23 05:22 Potassium 1.8 mmol/L (3.5-5.0) L 11/18/23 05:22 Glucose 132.0 mg/dL (70-115) H 11/18/23 05:22 Ionized Calcium 1.0 mmol/L (1.1-1.4) L 11/18/23 05:22 O2 Delivery Device Nc 11/19/23 12:50 O2 Liters/Min 5.0 % 11/19/23 12:50 FiO2 90.0 % 11/18/23 05:22 Tidal Volume 0.40 11/18/23 05:22 PEEP 5.0 cmH20 11/18/23 05:22 Gardening Instructor ID Cak 11/19/23 12:50 Sodium 138 mmol/L (136-145) 11/24/23 03:32 Potassium 3.4 mmol/L (3.5-5.1) L 11/24/23 03:32 Chloride 93 mmol/L (98-107) L 11/24/23 03:32 Carbon Dioxide 37 mmol/L (22-29) H 11/24/23 03:32 Anion Gap 11.4 (5-19) 11/24/23 03:32 BUN 9 mg/dL (8-23) 11/24/23 03:32 Creatinine 0.5 mg/dL (0.5-0.9) 11/24/23 03:32 GFR Calculation 125.9 mL/min (90-130) 11/24/23 03:32 Glucose 140 mg/dL (65-115) H 11/24/23 03:32 POC Glucose 139 mg/dL (70-110) H 11/17/23 22:28 Calculated Osmolality 287 mOsm/kg (285-295) 11/24/23 03:32 Calcium 8.7 mg/dL (8.5-10.5) 11/24/23 03:32 Magnesium 2.5 mg/dL (1.7-2.3) H 11/19/23 03:00 Total Bilirubin 0.5 mg/dL (0.15-1.2) 11/20/23 03:47 Direct Bilirubin 1.20 mg/dL (0.00-0.30) H 11/17/23 22:45 AST 44 U/L (0-32) H 11/20/23 03:47 ALT 42 U/L (0-33) H 11/20/23 03:47 Alkaline Phosphatase 120 U/L (35-105) H 11/20/23 03:47 Creatine Kinase 207 U/L (26-192) H 11/17/23 22:45 Troponin T Baseline 57 ng/L (0-10) H 11/17/23 17:36 Troponin T 120 Minute 56.28 ng/L (0-10) H 11/17/23 19:03 Delta Troponin T -0.72 ABS# (0-10) L 11/17/23 19:03 Troponin T Hi Sens 6Hr 57.66 ng/L (0-10) H 11/17/23 22:45 Troponin T Hi Sens 6Hr Delta 0.66 ng/L (0-12) 11/17/23 22:45 NT-Pro-B Natriuret Pep 1324 pg/mL (0-125) H 11/18/23 12:37 Total Protein 5.6 g/dL (6.6-8.7) L 11/20/23 03:47 Albumin 2.7 g/dL (3.5-5.2) L 11/20/23 03:47 Globulin 2.9 g/dL (1.3-4.6) 11/20/23 03:47 Lipase 24 U/L (13-60) 11/17/23 17:36 TSH 2.37 uIU/mL (0.27-4.20) 11/18/23 04:26 Urine Color Yellow (Yellow) 11/17/23 19:50 Urine Appearance Sl hazy (CLEAR) A 11/17/23 19:50 Urine pH 6 (5-7) 11/17/23 19:50 Ur Specific Lincoln 1.015 (1.005-1.030) 11/17/23 19:50 Urine Protein Trace (Negative) 11/17/23 19:50 Urine Glucose (UA) Norm (Normal) 11/17/23 19:50 Urine Ketones 1+ (Negative) H 11/17/23 19:50 Urine Blood Neg (Negative) 11/17/23 19:50 Urine Nitrate Negative (Negative) 11/17/23 19:50 Urine Bilirubin Neg (Negative) 11/17/23 19:50 Urine Urobilinogen 4 mg/dL (Negative) H 11/17/23 19:50 Ur Leukocyte Esterase Negative (Negative) 11/17/23 19:50 Urine RBC None /hpf (0-2) 11/17/23 19:50 Urine WBC 0-4 /hpf (0-5) H 11/17/23 19:50 Ur Squamous Epith Cells 15-25 /hpf (0-5) H 11/17/23 19:50 Amorphous Sediment 1+ /hpf 11/17/23 19:50 Urine Bacteria 1+ /hpf (NONE) H 11/17/23 19:50 Urine Mucus 2+ /hpf 11/17/23 19:50 Ur Random Sodium 10 mmol/L 11/20/23 04:00 Ur Random Potassium 10 mmol/L 11/19/23 12:55 Ur Random Potassium Cancelled 11/19/23 12:55 Ur Random Chloride 25 mmol/L 11/20/23 04:00 Ur Random Chloride 26 mmol/L 11/20/23 04:00 Ur Random Calcium 0.8 mg/dL 11/20/23 04:00 Urine Collection Time Not Reportable 11/20/23 04:00 Urine Total Volume Not Reportable 11/20/23 04:00 Urine Creatinine 76 mg/dL (28-217) 11/20/23 04:00 Ur Magnesium 24 Hr < 1.4 mg/dL (0.4-1.3) H 11/20/23 04:00 Vancomycin Trough < 4.0 ug/mL (10-15) L 11/20/23 11:45 Adenovirus (PCR) Not detected (NOT DETECT) 11/17/23 17:45 C. pneumoniae DNA (PCR) Not detected (NOT DETECT) 11/17/23 17:45 Coronavirus 229E (PCR) Not detected (NOT DETECT) 11/17/23 17:45 Human Metapneumovir PCR Not detected (NOT DETECT) 11/17/23 17:45 Influenza A (H1) PCR Not detected (NOT DETECT) 11/17/23 17:45 Influ A (H1/09) PCR Not detected (NOT DETECT) 11/17/23 17:45 Influenza A (H3) PCR Not detected (NOT DETECT) 11/17/23 17:45 Influenza Type A (PCR) Not detected (NOT DETECT) 11/17/23 17:45 Influenza Type B (PCR) Not detected (NOT DETECT) 11/17/23 17:45 M. pneumoniae (PCR) Not detected (NOT DETECT) 11/17/23 17:45 Parainfluenza 1 (PCR) Not detected (NOT DETECT) 11/17/23 17:45 Parainfluenza 2 (PCR) Not detected (NOT DETECT) 11/17/23 17:45 Parainfluenza 3 (PCR) Not detected (NOT DETECT) 11/17/23 17:45 Parainfluenza 4 (PCR) Not detected (NOT DETECT) 11/17/23 17:45 RSV Type A (PCR) Not detected (NOT DETECT) 11/17/23 17:45 RSV Type B (PCR) Not detected (NOT DETECT) 11/17/23 17:45 Entero/Rhino (PCR) Not detected (NOT DETECT) 11/17/23 17:45 SARS-CoV-2 (PCR) Not detected (NOT DETECT) 11/17/23 17:45 MRSA (PCR) Not detected (NOT DETECTED) 11/19/23 12:55 Vitals Last Vital Signs Temp 98.9 F 11/24/23 08:00 Pulse 105 H 11/24/23 08:23 Resp 16 11/24/23 08:23 BP 123/72 11/24/23 08:00 Pulse Ox 87 L 11/24/23 08:48 O2 Del Method High Flow Nasal Cannula 11/24/23 08:23 O2 Flow Rate 5 11/24/23 08:48 FiO2 40 11/18/23 09:36 Discharge Plan Discharge Patient Disposition: Home Condition: Stable Prescriptions: New amoxicillin-pot clavulanate 875-125 mg Tablet 1 tab PO BID Qty: 6 0RF spironolactone 25 mg Tablet 25 mg PO DAILY Qty: 90 1RF furosemide [Lasix] 20 mg tablet 20 mg PO DAILY Qty: 60 3RF aspirin 81 mg Tablet,Delayed Release (Dr/Ec) 81 mg PO DAILY Qty: 90 0RF potassium chloride [Klor-Con M20] 20 mEq Tablet,Er Particles/Crystals 40 meq PO BID Qty: 60 4RF fluticasone propion-salmeterol [Advair HFA] 45-21 mcg/actuation HFA aerosol inhaler 2 inh inhalation BID Qty: 12 3RF Spiriva Respimat 1.25 mcg/actuation mist 2 inh inhalation DAILY Qty: 4 2RF Continued atorvastatin 10 mg tablet 10 mg PO DAILY Qty: 90 1RF sertraline [Zoloft] 100 mg tablet 100 mg PO DAILY Qty: 90 1RF Rx Instructions: take with 50 mg tablet sertraline [Zoloft] 50 mg tablet 50 mg PO DAILY Qty: 90 1RF Rx Instructions: take with 100 mg tablet amlodipine [Norvasc] 10 mg tablet 10 mg PO DAILY Qty: 90 1RF albuterol sulfate 90 mcg/actuation HFA aerosol inhaler 2 inh inhalation Q4H PRN (Reason: shortness of breath or wheezing) Qty: 6.7 3RF Discontinued lisinopril 20 mg tablet 20 mg PO DAILY Qty: 90 1RF Discharge Orders: Discharge Order (Routine); Ordered 11/24/23 Ordered By: Irene Mullen Referrals: Michael Stafford MD [Primary Care Provider] - 12/01/23 9:30 am Sara Smith MD [Referring] - 7-10 days (Alkalosis hypokalemia) Patient Instructions: Opioid Safety Discharge Attestations Time Spent in Discharge Care*: greater than 30 min Quality Metrics Clinical Quality Measures [ No reported AMI, CVA or VTE this stay] Coding Level of Care Code Acute Code for Chg Fwd Diagnoses Hypochloremic alkalosis E87.3 Hypokalemia E87.6
--- NOTE | 2023-11-24 10:16 | PM.PN ---
Subjective Subjective: no new c/o Medications: Reviewed: Yes Vitals/I&O/Wt Last Vital Signs Temp 98.9 F 11/24/23 08:00 Pulse 105 H 11/24/23 08:23 Resp 16 11/24/23 08:23 BP 123/72 11/24/23 08:00 Pulse Ox 87 L 11/24/23 08:48 O2 Del Method High Flow Nasal Cannula 11/24/23 08:23 O2 Flow Rate 5 11/24/23 08:48 FiO2 40 11/18/23 09:36 11/23/23 11/24/23 11/24/23 22:59 06:59 14:59 Intake Total 0 / 0 0 / 0 Balance 0 / 0 0 / 0 Weight last 48 hrs Weight 69.49 kg Weight 69.967 kg Physical Exam Const: COMMON NORMALS: no acute distress and alert Neuro: SENSORIUM/ORIENTATION: Yes alert Urinary Catheter Management: Norman: Cath Placed During This Visit: yes, but has since been removed by the nurse Reason for Continuing Indwelling Catheter: Decision to DC Catheter Urinary Catheter Date of Insertion: 11/17/23 Urinary Catheter Time of Insertion: 23:00 Date Urinary Catheter Removed: 11/21/23 Time Urinary Catheter Discontinued: 13:00 Data 11/22/23 05:20 11/24/23 03:32 A&P Assessment and plan (1) Hypochloremic alkalosis: 1. Hypokalemia associated with hypochloremic metabolic alkalosis: This may very well could be due to poor p.o. intake for prolonged period of time. Denies nausea vomiting or diarrhea. No diuretic use , denies laxative abuse. other differential include - salt-losing tubulopathies ( Barters , Gilttelmans and Jose Ramon syndromes ) , mineralocorticoid excess - on scheduled KCL40 MEQ bID -Urine electrolytes noted - not clearly consistent with specific dx - added aldactone 25 mg daily , -Check renin and aldosterone levels-pending 2. Status postcardiac [id number] arrest 3. Elevated troponin-, left heart cath showed no ischemic disease 3. Hypoalbuminemia, will give few doses of albumin, encourage p.o. intake 4. History of COPD Patient evaluated using audiovisual cart. Time spent 20 minutes (2) Hypokalemia: Plan per [facility] Attestations Medical Necessity Statement*: per mediicne Coding Level of Care Code Acute Code for Chg Fwd Diagnoses Hypochloremic alkalosis E87.3 Hypokalemia E87.6
[2023-11-24] MEDS: iohexol 350 mg/mL 500 mL Btl (per mL) IV (10:30)
== END 2023-11-24 14:00 | disposition home or self-care (01) | DRG 193 ==
LOC: ER 21:21 → CSU 21:22 → ICU 22:46 → CSU 11-20 14:16
PROVIDERS: Family Medicine; Hospitalist; Internal Medicine; Admitting Provider Internal Medicine; Emergency Provider Internal Medicine; PCP Family Medicine Adult Medicine; Visit Provider Internal Medicine
PROC: 4A023N7 Measurement of Cardiac Sampling and Pressure, Left Heart, Percutaneous Approach (ICD-10-PCS; principal; 2023-11-19 11:30)
DX: J18.9 Pneumonia, unspecified organism (principal); I46.8 Cardiac arrest due to other underlying condition; I49.01 Ventricular fibrillation; I50.33 Acute on chronic diastolic (congestive) heart failure; J96.01 Acute respiratory failure with hypoxia; J44.0 Chronic obstructive pulmonary disease with (acute) lower respiratory infection; E87.4 Mixed disorder of acid-base balance; E87.0 Hyperosmolality and hypernatremia; J98.11 Atelectasis; J44.1 Chronic obstructive pulmonary disease with (acute) exacerbation; F17.210 Nicotine dependence, cigarettes, uncomplicated; J20.9 Acute bronchitis, unspecified; E78.5 Hyperlipidemia, unspecified; I11.0 Hypertensive heart disease with heart failure; F41.1 Generalized anxiety disorder; E87.6 Hypokalemia; N39.46 Mixed incontinence; E86.0 Dehydration; Z91.119 Patient's noncompliance with dietary regimen due to unspecified reason; Z53.09 Procedure and treatment not carried out because of other contraindication
CPT/HCPCS: 32555; 36415; 36416; 36600; 51702; 71045; 71275; 76604; 76705; 80048; 80051; 80053; 80202; 81001; 82088; 82248; 82330; 82340; 82436; 82550; 82575; 82803; 82805; 82962; 83690; 83735; 83880; 84132; 84133; 84244; 84300; 84443; 84484; 85025; 85378; 85610; 87040; 87070; 87205; 87486; 87581; 87633; 87641; 93005; 93306; 93458; 93970; 94002; 94003; 94640; 94660; 94760; 94799; 96365; 96366; 96367; 96372; 96376; 97110; 97161; 99152; 99153; 99291; A4222; A4570; C1769; C1887; C1894; C9113; J0283; J0330; J1100; J1644; J1650; J1940; J1956; J2250; J2704; J2920; J3010; J3370; J3411; J3480; J3490; J7040; J7050; J7121; J7614; J7644; Q0163; Q3014; Q9967

== ENCOUNTER 2025-05-06 19:31 | Inpatient (IN) | payer OTHER, SELFPAY ==
--- OUTSIDE RECORDS SUMMARY | 2025-05-06 19:39 | XMS_ITS | Encounter Summary ---
Author Organization [facility] Address [address] [place] [address] Phone Care Team Providers Care Behavioral Health Director Name Role Phone Michael Stafford MD Primary Care Provider [phone] Encounter Details Date Type Department Care Team (Late st Contact Info) Description 11/26/2023 Orders Only [facility] [address] [place] [address] Hypokalemia Social History Tobacco Use Types Packs/Day Years Used Date Smoking Tobacco: Never Assessed Comments Unknown Sex and Gender Information Value Date Recorded Sex Assigned at Not on file Legal Sex Female 9:48 AM EST Gender Identity Not on file Sexual Orientation Not on file documented as of this encounter Plan of Treatment Not on file documented as of this encounter Visit Diagnoses Diagnosis Hypokalemia documented in this encounter Care Teams Behavioral Health Director Relationship Specialty Start Date End Date Michael Stafford MD [address] [place] [id number] PCP - General Family Medicine 11/25/23 documented as of this encounter
--- OUTSIDE RECORDS SUMMARY | 2025-05-06 19:39 | XMS_ITS | Clinical Summary ---
[facility] Address [address] [facility] [place] [address] Phone Care Team Providers Care Theater Company Producer Name Role Phone Michael Stafford MD Primary Care Provider [phone] Social History Tobacco Use Types Packs/Day Years Used Date Smoking Tobacco: Never Assessed Comments Unknown Sex and Gender Information Value Date Recorded Sex Assigned at Not on file Legal Sex Female 9:48 AM EST Gender Identity Not on file Sexual Orientation Not on file Plan of Treatment Health Maintenance Due Date Last Done Comments Breast Cancer Screening 1965 Colorectal Cancer Screening: Annual FOBT 2012 Colorectal Cancer Screening: Colonoscopy 2012 Colorectal Cancer Screening: Sigmoidoscopy 2012 Pneumococcal Vaccine: 50+ Ye ars (1 of 1 - PCV) 2013 Influenza Vaccine (#1) 2025 Hepatitis B Vaccine Aged Out No longe r eligible based on patient's age to complete this topic Care Teams Theater Company Producer Relationship Specialty Start Date End Date Michael Stafford MD [address] [place] [id number] PCP - General Family Medicine 11/25/23
--- OUTSIDE RECORDS SUMMARY | 2025-05-06 19:39 | XMS_ITS | Clinical Summary ---
Author Organization [facility] [place] Address [address] [place] [address] Phone Care Team Providers Care Sales Administration Specialist Name Role Phone Unavailable Primary Care Provider Unavailabl e Allergies Active Allergy Reactions Criticality Noted Date Comments Penicillins Unknown 12/14/2015 Social History Tobacco Use Types Packs/Day Years Used Date Smoking Tobacco: Never Assessed Comments Unknown Sex and Gender Information Value Date Recorded Sex Assigned at Not on file Legal Sex Female 12:35 PM [employer] Gender Identity Not on file Sexual Orientation Not on file Plan of Treatment Health Maintenance Due Date Last Done Comments DTAP/TDAP/TD VACCINES (1 - Tdap) 1982 HPV/Cotest (21-29) 1984 CERVICAL CANCER SCREENING 1993 HPV/Cotest (30-65) 1993 PAP SMEAR 1993 BREAST CANCER SCREENING 2003 COLORECTAL SCREENING 2008 Colorectal Cancer Screening 2008 FIT-DNA Q 3 years 2008 FIT/FOBT Q 1 year 2008 Flex Sig/CT Colonography Q 5 years 2008 ZOSTER VACCINE (1 of 2) 2013 INFLUENZA VACCINE (#1) 2025 RSV VACCINE (60+ or ) (1 - 1-dose 75+ series) 2038
[2025-05-06 19:47] VITALS: BP 140/83; PULSE 93; RESP 24; TEMP 36.6; O2SAT 72; BMI 23.8
--- NOTE | 2025-05-06 19:47 | ECG_ITS ---
[facility] Date: 2025-05-06 Pat Name: Linda Alejandra Department: Room: Gender: Female Field Director: : 1965 Requested By: Braxton Tim Order Number: [id number] Sherrie MD: MIK SNOW Measurements Intervals Wells Rate: 88 P: 52 MD: 144 QRS: 88 QRSD: 96 T: 67 QT: 452 QTc: 548 Interpretive Statements SINUS RHYTHM MODERATE ST DEPRESSION [0.05+ mV ST DEPRESSION] PROLONGED QT INTERVAL Compared to ECG 11/17/2023 22:31:53 ST (T wave) deviation now present Prolonged QT interval now present Sinus tachycardia no longer present Atrial abnormality no longer present Right ventricular hypertrophy no longer present T-wave abnormality no longer present Possible ischemia no longer present Electronically Signed On 05-08-2025 13:57:30 CDT by MIK SNOW [email or web address]
--- NOTE | 2025-05-06 19:48 | XRR_ITS ---
PROCEDURE INFORMATION: Exam: XR Chest Exam date and time: 05/06/2025 7:53 PM Age: 60 years old Clinical indication: Shortness of breath; Additional info: SOB, hypoxia TECHNIQUE: Imaging protocol: Radiologic exam of the chest. Views: 1 view. COMPARISON: CT angio chest PE protcl [id number] 11/24/2023 10:23 AM FINDINGS: Lungs: [id number] central vascular congestion. Moderate interstitial prominence likely reflecting combination of chronic lung changes and superimposed pulmonary edema. No pulmonary consolidation. Mild pulmonary hyperinflation. Pleural spaces: Trace bilateral pleural effusions. No pneumothorax. Heart/Mediastinum: Stable moderate cardiomegaly. Bones/joints: No acute osseous abnormalities are seen. XR/XR chest 1V portable [id number] IMPRESSION: Cardiomegaly, mild central vascular congestion, and suggested pulmonary edema with trace effusions. Correlate with CHF.
[2025-05-06 20:07] LABS: Hematocrit 47.5 % (36-47); Hemoglobin 14.80 g/dL (11.27-16.99); Mean Corpuscular HGB Conc 31.2 g/dL (30-55); Mean Corpuscular Hemoglobin 32.6 pg (27-33); Mean Corpuscular Volume 104.6 fl (85-98); Nucleated Red Blood Cells % 0 %; Platelet Count 226 10^3/cmm (157-399); Red Blood Count 4.54 10^6/uL (3.85-5.65); White Blood Count 7.83 10^3/uL (3.29-11.43)
[2025-05-06 20:17] LABS: ABG PCO2 61.8 mmHg (35-45); ABG PH Result 7.47 (7.35-7.45); Alveolar-Arterial Oxygen Gradi 1.0 mmHg (5-10); Arterial Blood Gas Hematocrit 44.3 % (37-47); Blood Gas LPM 3.0 %; Blood Gas Sample Site Brachial, left; Blood Gas Sample Type Arterial; Carboxyhemoglobin 8.5 %THgb (0.4-20.1); Glucose Level-ABG 80.0 mg/dL (70-115); HCO3 ABG 45.2 mmol/L (22-26); Ionized Calcium Level - ABG 1.0 mmol/L (1.1-1.4); Methemoglobin 0.3 % (0.4-1.5); Oxygen Saturation ABG 93.4; PO2 ABG 67.6 mmHg (80.0-100.0); Potassium Level - ABG 2.0 mmol/L (3.5-5.0); Sodium Level - ABG 142.0 mmol/L (131-143)
--- NOTE | 2025-05-06 20:19 | ED_ITS ---
HPI - SOB/Dyspnea 2 General: Chief Complaint: Shortness of Breath/Dyspnea Stated Complaint: O2 56 last time checked, sob Time Seen by Provider: 05/06/25 19:41 History of Present Illness: HPI Narrative: HPI: Patient with history of frequent COPD exacerbations has been off her medicines for a few months not taking them. 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 Additionally daughter recommended that they come to be evaluated. This has been progressive over the last 3 days where she has been experiencing increasing shortness of breath. Recently started smoking again after previously quit smoking and started vaping over the last few weeks. No fevers, sweats, chills, chest pain. Patient states that she is having shortness of breath at rest but worsens substantially when she attempts to exert herself. Is not on any home oxygen. Hypoxic in the low 80s in triage and with marked increased work of breathing. REVIEW OF SYSTEMS: 10 systems reviewed and otherwise unrema rkable except for those noted in HPI. PHYSCIAL EXAM: Triage vital signs reviewed Gen: A&O NAD HEENT: NCAT, EOMI, not icteric. External ears normal. No rhinorrhea. Moist mucous membranes. Neck: Supple, full range of motion, no observable masses, No meningeal sign. Lungs: Diminished breath sounds bilaterally with expiratory wheezing, hypoxic when oxygen turned down to the low 80s. CV: RRR, no edema. Abdomen: Soft, nondistended, No rebound tenderness. MSK: No joint swelling, no redness. Skin: No rashes, petechiae, lesions. Normal color per patient. Neuro: Normal Gait, Grossly intact. Psych: Appropriate for situation. PROCEDURES: EKG: Rate: Normal Rhythm: Sinus [place]: Normal variant Intervals: Normal Ischemia: No STEMI criteria Related Data Previous Rx's ?Medication ?Instructions ?Recorded amlodipine 10 mg tablet (Norvasc) 10 mg PO DAILY #90 t abs 08/21/23 albuterol sulfate 90 mcg/actuation 2 inh inhalation Q4 H PRN shortness 11/24/23 aerosol inhaler of breath or wheezing #6.7 g joe aspirin 81 mg tablet,delayed 81 mg PO DAILY #90 tabs 0 11/24/23 release fluticasone propionate 45 2 inh inhalation BID #12 gra ms 02/20/24 mcg-salmeterol 21 mcg/actuation HFA inhaler (Advair HFA) furosemide 20 mg tablet (Lasix) 20 mg PO DAILY #60 tab s 11/24/23 potassium chloride 20 mEq 40 meq (2 x 20 mEq) PO BID # 60 tabs 11/24/23 tablet,extended release(part/cryst) (Klor-Con M) tiotropium bromide 1.25 2 inh inhalation DAILY #4 gr ams 11/24/23 mcg/actuation mist for inhalation (Spiriva Respimat) atorvastatin 10 mg tablet 10 mg PO DAILY #90 tabs 03/05 06/28 sertraline 100 mg tablet (Zoloft) 100 mg PO DAILY #90 tabs 03/23/24 sertraline 50 mg tablet (Zoloft) 50 mg PO DAILY #90 ta bs 03/23/24 spironolactone 25 mg tablet 25 mg PO DAILY #90 tabs Allergies Allergy/AdvReac Type Severity Reaction Status Date / Time Penicillins AdvReac Mild hives, Verified 12/01/23 09:29 itching [facility] ED 2 PFSH: Medical History (Updated 05/06/25 @ 20:59 by Bhanu Rucker MD) Former cigarette smoker Quit smoking on the day of admission 11/17/2023 to [facility] Hypokalemia Ventricular fibrillation COPD exacerbation Hypoxemia Chronic bronchitis with acute exacerbation CHF exacerbation Hypochloremic alkalosis Transaminitis Elevated liver transaminase level Pneumonia History of vitamin D deficiency Rectoperineal fistula Family history of colon cancer 09/15/[address] Flaherty with biopsy and repeat colonoscopy in 5 years Neck swelling Dyslipidemia Cervical intraepithelial neoplasia II Urinary incontinence Benign essential hypertension OMID (generalized anxiety disorder) Surgical History (Updated 11/25/23 @ 00:01 by TONO Stone) Hx of colonoscopy with polypectomy History of vaginal surgery (04/17/20) Posterior colporrhaphy, SIS sling. Dx: Fourth degree rectocele, BRIANNA. Performed by Dr. Jimenez at [facility] in [place], [place] History of bilateral tubal ligation (~2005) H/O hernia repair Family History Mother Ovarian cancer Uterine cancer Colon cancer high risk Grandmother Diabetes maternal Grandfather Hypertension maternal Thyroid disease maternal Social History Smoking and tobacco/nicotine status: current every day tobacco/nicotine user cigarettes Packs smoked per day: 0.75 Alcohol intake: current Alcohol intake frequency: holidays/special occasions only Substance/Drug Use: never Course 2 Vital Signs: Vital signs: Vital Signs Temperature 97.9 F 05/06/25 19:47 Pulse Rate 90 05/07/25 00:00 Respiratory Rate 15 05/07/25 00:00 Blood Pressure 164/82 05/07/25 00:00 Pulse Oximetry 96 05/07/25 00:00 Oxygen Delivery Me thod Nasal Cannula 05/07/25 00:00 Oxygen Flow Rate 4 05/07/25 00:00 MDM - SOB/Dyspnea Medical Decision Making MEDICAL DECISION MAKING: Differential diagnoses considered but not limited to: COPD exacerbation, atypical ACS, atypical pulmonary embolus, intermittent dysrhythmia, pneumonia, pneumothorax. Vitals nonactionable. Given history, examination, and pretest risk factors, patient experiencing COPD exacerbation today. Treated with DuoNeb, Solu-Medrol, and nasal cannula oxygen therapy. After observation in the emergency department patient not candidate for discharge given still hypoxic with new oxygen requirement. Will admit the patient to hospital service for medication optimization/restarting medicines and improvement of respiratory status. Initiate repletion of hypokalemia in the department. DISPO: Admission Bhanu Rucker MD Staff physician, [facility] emergency department [phone] Lab Data 05/06/25 19:56 05/06/25 19:56 Labs/Radiology: Radiology Impressions Chest X-Ray 05/06/25 19:48 IMPRESSION: Cardiomegaly, mild central vascular congestion, and suggested pulmonary edema with trace effusions. Correlate with CHF. Chest CTA 05/06/25 22:35 IMPRESSION: 1. No evidence of pulmonary embolism. 2. Diffuse interlobular septal thickening and bronchial wall thickening are nonspecific findings typical of pulmonary edema. 3. Enlarging mediastinal and bilateral hilar lymph nodes are nonspecific. 4. Trace bilateral pleural effusions with adjacent atelectasis. 5. Subpleural micro nodules measuring up to 5 mm. See comments section for Fleischner recommendations. COMMENTS: 1. For patients at low risk (minimal or absent history of smoking and of other known risk factors), no routine follow-up is indicated. For patients at high risk (history of smoking or of other known risk factors), consider optional CT Chest at 12 months. (Reference: Christy) 2. The presence of pulmonary emphysema on CT is an independent risk factor for lung cancer. In the absence of a history or active diagnosis of lung cancer, it is recommended that this patient with emphysema be evaluated for enrollment in a low dose CT lung cancer screening program. REFERENCES: Christy Buitrago, et al. Guidelines for Management of Incidental Pulmonary Nodules Detected on CT Images: From the Fleischner Society 2017. Radiology. 2017;284(1):228-243. Laboratory Results WBC 7.83 10^3/uL (3.29-11.43) 05/06/25 19:56 RBC 4.54 10^6/uL (3.85-5.65) 05/06/25 19:56 Hgb 14.80 g/dL (11.27-16.99) 05/06/25 19:56 Hct 47.5 % (36-47) H 05/06/25 19:56 MCV 104.6 fl (85-98) H 05/06/25 19:56 MCH 32.6 pg (27-33) 05/06/25 19:56 MCHC 31.2 g/dL (30-55) 05/06/25 19:56 RDW 15.7 % (12.1-15.1) H 05/06/25 19:56 Plt Count 226 10^3/cmm (157-399) 05/06/25 19:56 MPV 10.8 fL (7.4-10.4) H 05/06/25 19:56 Neut % (Auto) 73.3 % 05/06/25 19:56 Lymph % (Auto) 18.1 % 05/06/25 19:56 [place] % (Auto) 7.4 % 05/06/25 19:56 Eos % (Auto) 0.4 % 05/06/25 19:56 Baso % (Auto) 0.5 % 05/06/25 19:56 Neut # (Auto) 5.74 10^3/uL (1.8-7.7) 05/06/25 19:56 Lymph # (Auto) 1.4 10^3/uL (0.8-4.8) 05/06/25 19:56 [place] # (Auto) 0.6 10^3/uL (0.2-0.9) 05/06/25 19:56 Eos # (Auto) 0.0 10^3/uL (0.0-0.8) 05/06/25 19:56 Baso # (Auto) 0.0 10^3/uL (0.0-0.1) 05/06/25 19:56 Nucleated RBC % (auto) 0 % 05/06/25 19:56 Nucleated RBCs # 0.0 /100WBC 05/06/25 19:56 PT 12.70 SECONDS (12.1-14.9) 05/06/25 19:56 INR 0.89 (0.8-1.2) 05/06/25 19:56 APTT 24.8 SECONDS (23.9-36.7) 05/06/25 19:56 D-Dimer 0.38 ug/mLFEU (0-0.59) 05/06/25 19:56 Specimen Type Arterial 05/06/25 20:06 Sample Site Brachial, left 05/06/25 20:06 ABG pH 7.47 (7.35-7.45) H 05/06/25 20:06 ABG pCO2 61.8 mmHg (35-45) H* 05/06/25 20:06 ABG pO2 67.6 mmHg (80.0-100.0) L 05/06/25 20:06 ABG HCO3 45.2 mmol/L (22-26) H 05/06/25 20:06 ABG O2 Saturation 93.4 05/06/25 20:06 ABG Base Excess 17.9 mmol/L (-2.0-2.0) H 05/06/25 20:06 Baljeet Test N/a 05/06/25 20:06 A-a O2 Gradient 1.0 mmHg (5-10) L 05/06/25 20:06 Hematocrit 44.3 % (37-47) 05/06/25 20:06 Hgb O2 Saturation 85.2 % (95-100) L 05/06/25 20:06 Carboxyhemoglobin 8.5 %THgb (0.4-20.1) 05/06/25 20:06 Methemoglobin 0.3 % (0.4-1.5) L 05/06/25 20:06 Total Hemoglobin 14.4 g/dL (12-16) 05/06/25 20:06 Sodium 142.0 mmol/L (131-143) 05/06/25 20:06 Potassium 2.0 mmol/L (3.5-5.0) L 05/06/25 20:06 Glucose 80.0 mg/dL (70-115) 05/06/25 20:06 Ionized Calcium 1.0 mmol/L (1.1-1.4) L 05/06/25 20:06 O2 Delivery Device Nc 05/06/25 20:06 O2 Liters/Min 3.0 % 05/06/25 20:06 Locomotive Repairer Diesel ID [id number] 05/06/25 20:06 Sodium 142 mmol/L (136-145) 05/06/25 19:56 Potassium 2.3 mmol/L (3.5-5.1) L* 05/06/25 19:56 Chloride 89 mmol/L (98-107) L 05/06/25 19:56 Carbon Dioxide 41 mmol/L (22-29) H 05/06/25 19:56 Anion Gap 14.3 (5-19) 05/06/25 19:56 BUN 6 mg/dL (8-23) L 05/06/25 19:56 Creatinine 0.4 mg/dL (0.5-0.9) L 05/06/25 19:56 GFR Calculation 161.7 mL/min (90-130) H 05/06/25 19:56 Glucose 88 mg/dL (65-115) 05/06/25 19:56 Calculated Osmolality 291 mOsm/kg (285-295) 05/06/25 19:56 Lactic Acid 3.6 mmol/L (0.5-2.2) H 05/06/25 19:56 Lactic Acid (Sepsis) 3.2 mmol/L (0.5-2.2) H 05/06/25 21:38 Calcium 7.9 mg/dL (8.5-10.5) L 05/06/25 19:56 Magnesium 2.0 mg/dL (1.7-2.3) 05/06/25 21:38 Total Bilirubin 0.4 mg/dL (0.15-1.2) 05/06/25 19:56 AST 23 U/L (0-32) 05/06/25 19:56 ALT 13 U/L (0-33) 05/06/25 19:56 Alkaline Phosphatase 120 U/L (35-105) H 05/06/25 19:56 Troponin T Baseline 27 ng/L (0-10) H 05/06/25 19:56 Troponin T 120 Minute 26.13 ng/L (0-10) H 05/06/25 21:38 Delta Troponin T -0.87 ABS# (0-10) L 05/06/25 21:38 NT-Pro-B Natriuret Pep 1566 pg/mL (0-125) H 05/06/25 19:56 Total Protein 5.9 g/dL (6.6-8.7) L 05/06/25 19:56 Albumin 3.4 g/dL (3.5-5.2) L 05/06/25 19:56 Globulin 2.5 g/dL (1.3-4.6) 05/06/25 19:56 Adenovirus (PCR) Not detected (NOT DETECT) 05/06/25 20:09 C. pneumoniae DNA (PCR) Not detected (NOT DETECT) 05/06/25 20:09 Coronavirus 229E (PCR) Not detected (NOT DETECT) 05/06/25 20:09 Human Metapneumovir PCR Not detected (NOT DETECT) 05/06/25 20:09 Influenza A (H1) PCR Not detected (NOT DETECT) 05/06/25 20:09 Influ A (H1/09) PCR Not detected (NOT DETECT) 05/06/25 20:09 Influenza A (H3) PCR Not detected (NOT DETECT) 05/06/25 20:09 Influenza Type A (PCR) Not detected (NOT DETECT) 05/06/25 20:09 Influenza Type B (PCR) Not detected (NOT DETECT) 05/06/25 20:09 M. pneumoniae (PCR) Not detected (NOT DETECT) 05/06/25 20:09 Parainfluenza 1 (PCR) Not detected (NOT DETECT) 05/06/25 20:09 Parainfluenza 2 (PCR) Not detected (NOT DETECT) 05/06/25 20:09 Parainfluenza 3 (PCR) Not detected (NOT DETECT) 05/06/25 20:09 Parainfluenza 4 (PCR) Not detected (NOT DETECT) 05/06/25 20:09 RSV Type A (PCR) Not detected (NOT DETECT) 05/06/25 20:09 RSV Type B (PCR) Not detected (NOT DETECT) 05/06/25 20:09 Entero/Rhino (PCR) Not detected (NOT DETECT) 05/06/25 20:09 SARS-CoV-2 (PCR) Not detected (NOT DETECT) 05/06/25 20:09 All radiology interpretation(s) finalized by discharge Discharge Plan Discharge Patient Disposition: Admitted As Inpatient Clinical Impression: COPD with acute exacerbation, Acute hypokalemia Condition: Stable Coding Level of Care Code ED Transfusion Nurse for Jerson Estrella
[2025-05-06 20:22] LABS: Lactic Sepsis W/Reflex 3.6 mmol/L (0.5-2.2)
[2025-05-06 20:27] LABS: Troponin(5th) Baseline 27 ng/L (0-10)
[2025-05-06 20:34] LABS: INR 0.89 (0.8-1.2); Prothrombin Time 12.70 SECONDS (12.1-14.9)
[2025-05-06 20:35] LABS: Partial Thromboplastin Time 24.8 SECONDS (23.9-36.7)
[2025-05-06 20:36] LABS: Alanine Aminotransferase 13 U/L (0-33); Albumin Level 3.4 g/dL (3.5-5.2); Alkaline Phosphatase 120 U/L (35-105); Anion Gap 14.3 (5-19); Aspartate Amino Transferase 23 U/L (0-32); Blood Urea Nitrogen 6 mg/dL (8-23); Calcium 7.9 mg/dL (8.5-10.5); Chloride 89 mmol/L (98-107); Creatinine Clr Calc Pharmacy 143.5165; Globulin 2.5 g/dL (1.3-4.6); Glucose 88 mg/dL (65-115); Magnesium 2.0 mg/dL (1.7-2.3); NT Pro B Type Natriuretic Pept 1566 pg/mL (0-125); Osmolality Calculated 291 mOsm/kg (285-295); Sodium 142 mmol/L (136-145); Total Protein 5.9 g/dL (6.6-8.7)
[2025-05-06 20:38] LABS: Reflex Lactate Order REFLEX LACTIC ORDERD
[2025-05-06 20:40] LABS: Carbon Dioxide 41 mmol/L (22-29); Potassium 2.3 mmol/L (3.5-5.1)
[2025-05-06 20:48] VITALS: BP 141/83; PULSE 91; RESP 19; O2SAT 96
[2025-05-06 21:03] VITALS: BP 141/83; PULSE 78; RESP 20; O2SAT 94
[2025-05-06 22:03] VITALS: BP 156/91; PULSE 85; RESP 17; O2SAT 96
[2025-05-06 22:03] LABS: Troponin 5 2HR 26.13 ng/L (0-10)
[2025-05-06 22:04] LABS: Lactic Acid level (Lactate) 3.2 mmol/L (0.5-2.2)
[2025-05-06 22:09] LABS: Troponin 5 2HR Delta -0.87 ABS# (0-10)
[2025-05-06 22:22] LABS: Coronavirus 229E,HKU1,NL63,OC4 Not Detected (NOT DETECT); Parainfluenza Virus Type 1 Not Detected (NOT DETECT); Parainfluenza Virus Type 2 Not Detected (NOT DETECT); Parainfluenza Virus Type 3 Not Detected (NOT DETECT); Parainfluenza Virus Type 4 Not Detected (NOT DETECT); SARS-COV-2 Not Detected (NOT DETECT)
[2025-05-06] MEDS: potassium chloride premix 100 ML 50 MEQ IV (22:29)
--- NOTE | 2025-05-06 22:35 | CTR_ITS ---
PROCEDURE INFORMATION: Exam: CTA Chest With Contrast Exam date and time: 05/06/2025 11:14 PM Age: 60 years old Clinical indication: Shortness of breath; SOB with hypoxemia. History of chf and copd. ; Additional info: Elevated dimer, acute shortness of breath, eval pe TECHNIQUE: Imaging protocol: Computed tomographic angiography of the chest with contrast. Exam focused on the arteries. 3D rendering (Not supervised by radiologist): MIP and/or 3D reconstructed images were created by the technologist. Radiation optimization: All CT scans at this facility use at least one of these dose optimization techniques: automated exposure control; mA and/or kV adjustment per patient size (includes targeted exams where dose is matched to clinical indication); or iterative reconstruction. Contrast material: OMNI 350; Contrast volume: 85 ml; Contrast route: INTRAVENOUS (IV); COMPARISON: CT angio chest PE protcl [id number] 11/24/2023 10:23 AM RADIATION DOSE METRICS: Total DLP (mGy-cm): 379.48 FINDINGS: Pulmonary arteries: The pulmonary arteries are adequately visualized to the subsegmental level. No filling defects are identified to suggest pulmonary artery embolism. The main pulmonary there is stable mild dilatation of the main pulmonary artery. Aorta: Atherosclerotic calcifications of the aorta are present. No aneurysm is identified. Lungs: Moderate emphysematous changes. Moderate interlobular septal thickening and bronchial wall thickening are nonspecific findings though typical of pulmonary edema. No pulmonary consolidation. Scattered peripheral areas of atelectasis and/or scarring. No pulmonary mass. There are few subpleural left upper lobe pulmonary nodules the largest measuring up to 5 mm (image 141, series 6). Mild bilateral posterior lower lobe atelectasis. Pleural spaces: No pneumothorax. Trace bilateral pleural effusions. Heart: Moderate cardiomegaly. No pericardial effusion or pericardial thickening. Mild dilatation of the inferior vena cava, typical of right heart failure. Coronary arteries: Moderate coronary artery calcification. Lymph nodes: Multiple prominent and mildly enlarged mediastinal lymph nodes, increased in size compared to prior study are nonspecific. One example is an aortopulmonary lymph node previously measuring 1.4 x 0.7 cm, now measuring 2.3 x 1.1 cm. Several other examples are present. Increased size of bilateral hilar lymph nodes. Liver: Stable irregular cystic left hepatic lesion. Stable pneumobilia. Bones/joints: No acute osseous abnormalities are seen. Soft tissues: Mild diffuse subcutaneous edema. CT/CT angio chest PE protcl [id number] IMPRESSION: 1. No evidence of pulmonary embolism. 2. Diffuse interlobular septal thickening and bronchial wall thickening are nonspecific findings typical of pulmonary edema. 3. Enlarging mediastinal and bilateral hilar lymph nodes are nonspecific. 4. Trace bilateral pleural effusions with adjacent atelectasis. 5. Subpleural micro nodules measuring up to 5 mm. See comments section for Fleischner recommendations. COMMENTS: 1. For patients at low risk (minimal or absent history of smoking and of other known risk factors), no routine follow-up is indicated. For patients at high risk (history of smoking or of other known risk factors), consider optional CT Chest at 12 months. (Reference: Christy) 2. The presence of pulmonary emphysema on CT is an independent risk factor for lung cancer. In the absence of a history or active diagnosis of lung cancer, it is recommended that this patient with emphysema be evaluated for enrollment in a low dose CT lung cancer screening program. REFERENCES: Christy Buitrago, et al. Guidelines for Management of Incidental Pulmonary Nodules Detected on CT Images: From the Fleischner Society 2017. Radiology. 2017;284(1):228-243.
[2025-05-06 22:41] LABS: Magnesium 2.0 mg/dL (1.7-2.3)
[2025-05-06 23:00] VITALS: BP 120/65; PULSE 89; RESP 95; O2SAT 95
[2025-05-06] MEDS: iohexol 350 mg/mL 500 mL Btl (per mL) IV (23:15)
[2025-05-07] VITALS (15 sets, daily range): BP systolic 108–165; BP diastolic 72–94; PULSE 90–101; RESP 15–20; TEMP 36.6–37; O2SAT 88–100; BMI 26.3
[2025-05-07] MEDS: FUROsemide 10 mg/mL SDV 4mL 40 MG IVP ×2 (00:30→02:40)
--- NOTE | 2025-05-07 01:47 | ECG_ITS ---
[facility]: 2025[facility]07 Pat Name: Linda Alejandra Department: Room: 276 Gender: Female Death Surveys Coder: : 1965 Requested By: Braxton Tim Order Number: [id number] Sherrie MD: MIK SNOW Measurements Intervals Okay Rate: 96 P: 35 CO: 174 QRS: 80 QRSD: 96 T: -10 QT: 444 QTc: 562 Interpretive Statements SINUS RHYTHM WITH OCCASIONAL VENTRICULAR PREMATURE COMPLEXES POSSIBLE LEFT ATRIAL ENLARGEMENT [-0.1mV P-WAVE IN V1/V2] ST DEVIATION AND MODERATE T-WAVE ABNORMALITY, CONSIDER ANTEROLATERAL ISCHEMIA [-0.1+ mV T-WAVE IN V3-V6] Compared to ECG 05/06/2025 20:26:57 Ventricular premature complex(es) now present there is no sig change Electronically Signed On 05-08-2025 14:07:14 CDT by MIK SNOW [email or web address]
--- NOTE | 2025-05-07 01:56 | USCV_ITS ---
JustynLinda Age: 60 Gender: F : 1965 Exam Date: 05/07/2025 09:50 Ordering Phys: Jenny Jhaveri MD Technologist: Luis Diaz Exam Location[place] [facility] [place] Indication: chf BP: 156 / 90 HR: 96 Rhythm: Sinus Technical Quality: Adequate MEASUREMENTS (Male / Female) Normal Values 2D ECHO LV Diastolic Diameter PLAX 4.8 cm 4.2 - 5.9 / 3.9 - 5.3 cm IVS Diastolic Thickness 0.9 cm 0.6 - 1.0 / 0.6 - 0.9 cm IVS Systolic Thickness 1.2 cm LVPW Diastolic Thickness 1.3 cm 0.6 - 1.0 / 0.6 - 0.9 cm LVPW Systolic Thickness 1.7 cm LVOT Diameter 2.0 cm LV Ejection Fraction 2D Teich 67.4 % LV Ejection Fraction MOD 4C 72.6 % LV Ejection Fraction MOD 2C 71.4 % LV Ejection Fraction 2C AL 71.6 % LA Diameter 3.1 cm RA Systolic Volume 4C AL 40.7 ml RA Systolic Volume 4C MOD 41.3 ml LA Sys Volume AL 62.6 cm cubed LA Sys Volume Index AL 33.5 cm cubed/m squared Aorta at Sinotubular Diameter 2.6 cm IVC Diameter 1.6 cm M-MODE LA Ao Ratio MM 1.4 AV Cusp Separation MM 1.8 cm DOPPLER AV Peak Velocity 161.0 cm/s LVOT Peak Velocity 136.0 cm/s AV Area Cont Eq vti 2.8 cm squared AV Area Cont Eq pk 2.7 cm squared MV Peak Velocity 128.0 cm/s MV Area PHT 6.9 cm squared Mitral E to A Ratio 0.9 TV Peak Velocity 238.5 cm/s TR Peak Velocity 243.0 cm/s TR Peak Gradient 23.6 mmHg TR Mean Velocity 210.0 cm/s TR Mean Gradient 18.2 mmHg TR Velocity Time Integral 58.9 cm PV Peak Velocity 77.7 cm/s RV Ejection Time 0.3 s FINDINGS Left Ventricle Normal left ventricular size, systolic function and wall thickness, with no regional wall motion abnormalities. Left ventricular ejection fraction is estimated at 60 %. Grade I/IV diastolic dysfunction (abnormal relaxation filling pattern), normal to mildly elevated filling pressures. Right Ventricle The right ventricle is normal in size and function. Right Atrium The right atrium is normal in size. Left Atrium The left atrium is normal in size. Mitral Valve Mildly thickened mitral valve. No mitral valve stenosis. Trace mitral valve regurgitation. Aortic Valve Mild aortic valve calcification. No aortic valve stenosis. Trace aortic valve regurgitation. Tricuspid Valve Structurally normal tricuspid valve without significant stenosis or regurgitation. Pulmonary artery systolic pressure is normal. Pulmonic Valve Structurally normal pulmonic valve without significant stenosis. There is no pulmonic regurgitation. Pericardium Normal pericardium without effusion. Aorta Normal ascending aorta dimension. IVC The inferior vena cava appears normal. CONCLUSIONS Normal left ventricular size, systolic function and wall thickness, with no regional wall motion abnormalities. Left ventricular ejection fraction is estimated at 60 %. Grade I/IV diastolic dysfunction (abnormal relaxation filling pattern), normal to mildly elevated filling pressures. No significant valve abnormalities. There is no pericardial effusion. Right atrial pressure is around 5 mm of mercury. Irene Simon MD (Electronically Signed) Final Date: 07 May 2025 17:38 S
--- NOTE | 2025-05-07 02:16 | P.HP_ITS ---
Providers/Chief Complaint 2 Admitting Physician: Jenny Jhaveri MD--seen and evaluated before midnight Chief Complaint: O2 56 last time checked, sob History of Present Illness Linda Alejandra is a 60 year old female with medical history significant for high blood pressure and COPD exacerbation who had presented to the emergency room with complaints of worsening shortness of breath over some days patient claimed that she had not had any of her medication over the past 3 to 4 months because her primary care doctor had retired and she had not been able to find another. Recently she had gotten another primary care doctor but yet to follow- up. When the EMS came to her the pulse oximetry was 50% she was alert and awake at the lobby of the emergency room pulse ox was 70% patient had not been on any home oxygen she was placed on 3 L of oxygen. Patient had smoked since age 16 a minimum of about a pack of cigarettes a day till date Further workup has shown bilateral pleural effusion trace at the bases CT of the chest was done it was negative for PE and negative for pneumonia. Lab studies were significant for potassium of 2.3 patient has pulmonary vascular congestion with a pleural BNP of 1556 Patient has been admitted at this time for COPD and CHF exacerbation. Patient had not had any medication for over 3 months to maybe a minimum because of lack of primary care doctor. Her primary care doctor had retired and she had not been able to fill out her medication but now had gotten another 1 at patient goes to surgical floor on telemetry. Potassium of 2.3 had been replaced in the emergency room with a total of 60 mEq of K-Dur.. Echocardiogram had been ordered to be followed up on. Review of Systems 2 Narrative: System review upon 10 organ review were significant for pulmonary system and cardiac system for failure. Medications/Allergies Home Medications ?Medication ?Instructions ?Recorded ?Confirmed ?Last Taken ?Type amlodipine 10 mg tablet (Norvasc) 10 mg PO DAILY #90 t abs 08/21/23 12/01/23 Unknown Rx albuterol sulfate 90 mcg/actuation 2 inh inhalation Q4 H PRN shortness 11/24/23 12/01/23 Unknown Rx aerosol inhaler of breath or wheezing #6.7 g joe aspirin 81 mg tablet,delayed 81 mg PO DAILY #90 tabs 0 11/24/23 12/01/23 Unknown Rx release fluticasone propionate 45 2 inh inhalation BID #12 gra ms 11/24/23 12/01/23 Unknown Rx mcg-salmeterol 21 mcg/actuation HFA inhaler (Advair HFA) furosemide 20 mg tablet (Lasix) 20 mg PO DAILY #60 tab s 11/24/23 12/01/23 Unknown Rx potassium chloride 20 mEq 40 meq (2 x 20 mEq) PO BID # 60 tabs 11/24/23 12/01/23 Unknown Rx tablet,extended release(part/cryst) (Klor-Con M) tiotropium bromide 1.25 2 inh inhalation DAILY #4 gr ams 11/24/23 12/01/23 Unknown Rx mcg/actuation mist for inhalation (Spiriva Respimat) atorvastatin 10 mg tablet 10 mg PO DAILY #90 tabs 03/05 06/28 Unknown Rx sertraline 100 mg tablet (Zoloft) 100 mg PO DAILY #90 tabs 03/23/24 Unknown Rx sertraline 50 mg tablet (Zoloft) 50 mg PO DAILY #90 ta bs 03/23/24 Unknown Rx spironolactone 25 mg tablet 25 mg PO DAILY #90 tabs Unknown Rx Allergies Allergy/AdvReac Type Severity Reaction Status Date / Time Penicillins AdvReac Mild hives, Verified 12/01/23 09:29 itching PFSH Acute 2 PFSH: Medical History (Updated 05/07/25 @ 02:40 by Jenny Jhaveri MD) Former cigarette smoker Quit smoking on the day of admission 11/17/2023 to [facility] Hypokalemia Ventricular fibrillation COPD exacerbation Hypoxemia Chronic bronchitis with acute exacerbation CHF exacerbation Hypochloremic alkalosis Transaminitis Elevated liver transaminase level Pneumonia History of vitamin D deficiency Rectoperineal fistula Family history of colon cancer 09/15/[address] Flaherty with biopsy and repeat colonoscopy in 5 years Neck swelling Dyslipidemia Cervical intraepithelial neoplasia II Urinary incontinence Benign essential hypertension OMID (generalized anxiety disorder) Surgical History (Updated 11/25/23 @ 00:01 by TONO Stone) Hx of colonoscopy with polypectomy History of vaginal surgery (04/17/20) Posterior colporrhaphy, SIS sling. Dx: Fourth degree rectocele, BRIANNA. Performed by Dr. Jimenez at [facility] in [place], [place] History of bilateral tubal ligation (~2005) H/O hernia repair Family History Mother Ovarian cancer Uterine cancer Colon cancer high risk Grandmother Diabetes maternal Grandfather Hypertension maternal Thyroid disease maternal Social History Smoking and tobacco/nicotine status: current every day tobacco/nicotine user cigarettes Packs smoked per day: 0.75 Alcohol intake: current Alcohol intake frequency: holidays/special occasions only Substance/Drug Use: never Vitals/I&O/Wt Last Vital Signs Temp 97.9 F 05/06/25 19:47 Pulse 90 05/07/25 01:17 Resp 18 05/07/25 01:17 BP 155/88 05/07/25 01:17 Pulse Ox 95 05/07/25 01:17 O2 Del Method Nasal Cannula 05/07/25 01:00 O2 Flow Rate 4 05/07/25 01:00 05/06/25 05/06/25 05/07/25 14:59 22:59 06:59 Intake Total 600 / 600 Balance 600 / 600 Weight last 48 hrs Weight 73.936 kg Weight 66.905 kg Physical Exam 2 Narrative: Patient is not quite ill-appearing but verbalized ongoing shortness of breath and worsening HEENT normocephalic/atraumatic neck neck is supple cardiovascular heart rate is regular lungs are clear but diminished at the bases abdomen soft nontender nondistended unremarkable extremities intact no edema has good pulses neurology he has no focality. Data 05/07/25 02:53 05/07/25 02:53 Micro: Microbiology 05/06/25 20:15 Blood Culture - Preliminary Blood SPECIMEN COLLECTED 05/06/25 20:13 Blood Culture - Preliminary Blood SPECIMEN COLLECTED A&P Assessment and plan 1. Acute hypokalemia: Acute hypokalemia replaced Follow-up with repeat potassium of 2.6 patient received a total of 60 mEq of potassium chloride in a pattern of 40 mill equivalent oral and 20 mEq IV Continue to monitor Patient is on medical floor on telemetry 2. COPD with acute exacerbation: COPD with exacerbation patient doing much better responded to nebulizing treatments steroid therapy and empiric antibiotics in the emergency room Patient has no pneumonia noted Continue to treat and optimize 3. Former cigarette smoker: Nicotine addiction patient actively smoking and case discussed extensively with the patient concerning stopping smoking. Patient has smoked since age 16 and patient at this time is 60 years old looking much older than the stated age 4. Hypoxemia: Patient not on home oxygen presenting with pulse ox at 50 eventually requiring 3 L of oxygen to optimize Continue to treat with steroid therapy because of bronchial spasm Nebulizing treatment in place Empiric azithromycin in place for associated bronchitis Continue oxygen therapy 5. CHF (congestive heart failure): Patient is with vascular congestion Diuretics initiated Patient feeling much better Echo cardiogram ordered Plan: See the above. GI and DVT prophylaxis in place PDMP PDMP Reviewed: Not Reviewed Attestations 2 Medical Necessity Statement*: Patient with COPD exacerbation CHF exacerbation with hypoxemia remarkable for pulse oximetry at 50% and shortness of breath merits inpatient stay for at least 2 midnights Coding Level of Care Code 23886 Diagnoses Acute hypokalemia E87.6 COPD with acute exacerbation J44.1 Former cigarette smoker Z87.891 Hypoxemia R09.02 CHF (congestive heart failure) I50.9 Time Spent (min) 70
[2025-05-07] MEDS: methylPREDNISolone sod succ 40 mg/mL INJ IVP ×3 (02:39→21:13)
[2025-05-07] MEDS: heparin 5,000 unit/mL INJ 1 mL 5000 UNIT SUBCUT ×2 (02:39→14:25)
[2025-05-07 04:00] LABS: Hematocrit 48.4 % (36-47); Hemoglobin 15.20 g/dL (11.27-16.99); Mean Corpuscular HGB Conc 31.4 g/dL (30-55); Mean Corpuscular Hemoglobin 33.1 pg (27-33); Mean Corpuscular Volume 105.4 fl (85-98); Nucleated Red Blood Cells % 0 %; Platelet Count 238 10^3/cmm (157-399); Red Blood Count 4.59 10^6/uL (3.85-5.65); White Blood Count 5.58 10^3/uL (3.29-11.43)
[2025-05-07 04:18] LABS: INR 0.89 (0.8-1.2); Prothrombin Time 12.70 SECONDS (12.1-14.9)
[2025-05-07 04:22] LABS: Lactate (Lactic Acid level) 1.6 mmol/L (0.5-2.2)
[2025-05-07 04:27] LABS: Alanine Aminotransferase 16 U/L (0-33); Albumin Level 3.4 g/dL (3.5-5.2); Alkaline Phosphatase 123 U/L (35-105); Anion Gap 12.6 (5-19); Aspartate Amino Transferase 33 U/L (0-32); Blood Urea Nitrogen 5 mg/dL (8-23); Calcium 7.8 mg/dL (8.5-10.5); Chloride 86 mmol/L (98-107); Creatinine Clr Calc Pharmacy 199.9878; Globulin 2.5 g/dL (1.3-4.6); Glucose 91 mg/dL (65-115); Magnesium 1.9 mg/dL (1.7-2.3); Osmolality Calculated 293 mOsm/kg (285-295); Sodium 143 mmol/L (136-145); Total Protein 5.9 g/dL (6.6-8.7)
[2025-05-07 04:29] LABS: Carbon Dioxide 47 mmol/L (22-29); Potassium 2.6 mmol/L (3.5-5.1)
[2025-05-07 04:41] LABS: Troponin 5 6HR 28.97 ng/L (0-10); Troponin 5 6HR Delta 1.97 ng/L (0-12)
[2025-05-07] MEDS: lidocaine 1% 5 ML in potassium chloride premix 100 ML 52.5 ML IV ×4 (05:08→23:44)
--- NOTE | 2025-05-07 11:52 | PC.PHAR ---
Patient states she takes an old inhaler she has at home when she can't breath. Patient states she hasn't had a regular Doctor ,hers left where she was going. Patient states she hasn't been taking any of her blood pressure medications or her anxiety medications and she feels ok.
--- NOTE | 2025-05-07 13:22 | P.PN_ITS ---
Subjective 2 Subjective: Seen this morning. Resting comfortably in bed. Potassium 2.6 today. Bicarb 47. Patient is on Lasix. She says she feels slightly better. Potassium 2.6 this morning. Vitals/I&O/Wt Last Vital Signs Temp 98.3 F 05/07/25 11:42 Pulse 97 05/07/25 11:42 Resp 19 H 05/07/25 11:42 BP 122/73 05/07/25 11:42 Pulse Ox 95 05/07/25 11:42 O2 Del Method Nasal Cannula 05/07/25 11:42 O2 Flow Rate 4 05/07/25 08:11 05/06/25 05/07/25 05/07/25 22:59 06:59 14:59 Intake Total 840 / 840 570 / 570 Output Total 1200 / 1200 2100 / 2100 Balance -360 / -360 -1530 / -1530 Weight last 48 hrs Weight 73.936 kg Weight 73.936 kg Weight 66.905 kg Physical Exam 2 Narrative: General: Alert oriented x3, patient seen laying in bed. Comfortable at this time. On 4 L nasal cannula. HEENT: Normocephalic, atraumatic, EOMI, no conversational dyspnea. Cardio: Regular rate rhythm, normal S1-S2, Respiratory: Mainly clear to auscultation bilaterally no wheezes no rhonchi no crackles GI: Abdomen soft, nontender, nondistended, bowel sounds + Behavior: Appropriate and cooperative Extremities: Pulses 2+, no edema, no cyanosis Data 05/07/25 02:53 05/07/25 02:53 Micro: Microbiology 05/06/25 20:15 Blood Culture - Preliminary Blood SPECIMEN COLLECTED 05/06/25 20:13 Blood Culture - Preliminary Blood SPECIMEN COLLECTED A&P Assessment and plan 1. Acute hypokalemia: Acute hypokalemia replaced Follow-up with repeat potassium of 2.6 patient received a total of 60 mEq of potassium chloride in a pattern of 40 mill equivalent oral and 20 mEq IV Continue to monitor Patient is on medical floor on telemetry 2. COPD with acute exacerbation: COPD with exacerbation patient doing much better responded to nebulizing treatments steroid therapy and empiric antibiotics in the emergency room Patient has no pneumonia noted Continue to treat and optimize 3. Former cigarette smoker: Nicotine addiction patient actively smoking and case discussed extensively with the patient concerning stopping smoking. Patient has smoked since age 16 and patient at this time is 60 years old looking much older than the stated age 4. Hypoxemia: Patient not on home oxygen presenting with pulse ox at 50 eventually requiring 3 L of oxygen to optimize Continue to treat with steroid therapy because of bronchial spasm Nebulizing treatment in place Empiric azithromycin in place for associated bronchitis Continue oxygen therapy 5. CHF (congestive heart failure): Patient is with vascular congestion Diuretics initiated Patient feeling much better Echo cardiogram ordered Plan: See the above. GI and DVT prophylaxis in place 05/07/2025 Patient seems to be in contraction alkalosis. I will hold further Lasix at this time. I will increase methylprednisolone to every 8 hours. Will hold Lasix. Ordered Diamox 500 mg orally x 1 Lactic acid has normalized to 1.6. Potassium 2.6 this morning. Patient is getting IV potassium and oral. Check BMP at 5 PM. Continue azithromycin. PDMP PDMP Reviewed: Not Reviewed Attestations 2 Medical Necessity Statement*: Patient with COPD exacerbation CHF exacerbation with hypoxemia remarkable for pulse oximetry at 50% and shortness of breath merits inpatient stay for at least 2 midnights Diagnoses Acute hypokalemia E87.6 COPD with acute exacerbation J44.1 Former cigarette smoker Z87.891 Hypoxemia R09.02 CHF (congestive heart failure) I50.9
[2025-05-07 19:18] LABS: Anion Gap 12.7 (5-19); Blood Urea Nitrogen 8 mg/dL (8-23); Calcium 7.9 mg/dL (8.5-10.5); Chloride 85 mmol/L (98-107); Creatinine Clr Calc Pharmacy 149.9909; Glucose 175 mg/dL (65-115); Osmolality Calculated 285 mOsm/kg (285-295); Sodium 136 mmol/L (136-145)
[2025-05-07 19:37] LABS: Carbon Dioxide 41 mmol/L (22-29); Potassium 2.7 mmol/L (3.5-5.1)
[2025-05-08] MEDS: heparin 5,000 unit/mL INJ 1 mL 5000 UNIT SUBCUT ×2 (02:46→13:10)
[2025-05-08 04:00] VITALS: BP 135/78; PULSE 91; RESP 20; TEMP 36.8; O2SAT 95
[2025-05-08 04:44] LABS: Hematocrit 53.2 % (36-47); Hemoglobin 15.90 g/dL (11.27-16.99); Mean Corpuscular HGB Conc 29.9 g/dL (30-55); Mean Corpuscular Hemoglobin 32.5 pg (27-33); Mean Corpuscular Volume 108.8 fl (85-98); Nucleated Red Blood Cells % 0 %; Platelet Count 266 10^3/cmm (157-399); Red Blood Count 4.89 10^6/uL (3.85-5.65); White Blood Count 5.34 10^3/uL (3.29-11.43)
[2025-05-08] MEDS: methylPREDNISolone sod succ 40 mg/mL INJ IVP ×2 (04:50→13:09)
[2025-05-08 05:03] LABS: Alanine Aminotransferase 14 U/L (0-33); Albumin Level 3.3 g/dL (3.5-5.2); Alkaline Phosphatase 160 U/L (35-105); Anion Gap 14.4 (5-19); Aspartate Amino Transferase 18 U/L (0-32); Blood Urea Nitrogen 8 mg/dL (8-23); Calcium 8.2 mg/dL (8.5-10.5); Chloride 93 mmol/L (98-107); Creatinine Clr Calc Pharmacy 99.9939; Globulin 3.4 g/dL (1.3-4.6); Glucose 185 mg/dL (65-115); Magnesium 2.0 mg/dL (1.7-2.3); Osmolality Calculated 303 mOsm/kg (285-295); Potassium 3.4 mmol/L (3.5-5.1); Sodium 145 mmol/L (136-145); Total Protein 6.7 g/dL (6.6-8.7)
[2025-05-08 05:16] LABS: Carbon Dioxide 41 mmol/L (22-29)
[2025-05-08 07:48] VITALS: BP 163/81; PULSE 72; RESP 16; TEMP 36.7; O2SAT 96
--- NOTE | 2025-05-08 08:00 | XR_ITS ---
WS: [id number] XR chest 1V portable [id number] REASON FOR EXAM: chest pain FINDINGS: Compared to the examination of 05/06/2025, the interstitial edema bilaterally has partially resolved. Mild residual abnormality. Bilateral pleural effusions are more prominent than on the previous examination. No other interval change or new finding. XR/XR chest 1V portable [id number] IMPRESSION: Presumed resolving congestive heart failure.
[2025-05-08 08:14] VITALS: PULSE 72; RESP 18; O2SAT 98
[2025-05-08 11:25] VITALS: BP 181/97; PULSE 78; RESP 16; TEMP 36.5; O2SAT 97
[2025-05-08 11:29] VITALS: O2SAT 97
[2025-05-08 13:30] VITALS: BP 157/90
--- NOTE | 2025-05-08 15:45 | PM.DCS ---
Discharge Providers Date of Admission: 05/07/25 00:15 Date of Discharge: May 08, 2025 Attending Provider at Admission: Jenny Jhaveri MD Attending Provider at Discharge: Elham Casey MD Diagnoses at Discharge Discharge Diagnosis 1. Acute hypokalemia: 2. COPD with acute exacerbation: 3. Former cigarette smoker: 4. Hypoxemia: 5. CHF (congestive heart failure): Reason for Visit Reason for Visit: O2 56 last time checked, sob Hospital Course Hospital Course 60-year-old lady with a past medical history of hypertension, COPD, rectal perineal fistula, chronic hypokalemia, presented to the hospital on May 07, 2025 with chief complaints of shortness of breath. O2 sats at home were at 50%. She was placed on 3 L/min of oxygen and admitted to the hospital. CT of the chest was negative for PE or consolidation. Patient was noted to have pulmonary vascular congestion with an elevated BNP of 1500. She was admitted in view of COPD and CHF exacerbation. Patient had not followed up with a primary care provider in over a year since her PCP left the organization. For her hypokalemia she was repleted with oral potassium. Echocardiogram was performed which showed EF of 60% with grade 1 diastolic dysfunction.Patient was receiving diuresis with IV Lasix. Today her blood pressure was noted to be 180-190 systolic and antihypertensive regimen was added with hydralazine. Patient elected to leave [facility] today stating that her daughter needed help at home and that she needed to care for her animals. Discussed with her the risk of worsening dyspnea, worsening CHF, patient stated she understood the risks and will follow-up with her primary care physician. She is trying to establish care with Dr. Reardon as an outpatient. Patient elected to leave [facility]. Physical Exam Narrative: General: No acute distress, AO x3 HEENT: PERRLA, pupils bilaterally equal and reactive, pallors not present Chest: Normal vesicular breath sounds, no added sounds, equal good air entry bilaterally CVS: S1-S2 regular, no murmurs, no tachycardia, no gallops, no rubs Abdomen: Soft, nontender, no organomegaly, bowel sounds present Neuro: No focal deficits, no facial deformity, AO x3, power 5/5 in all limbs Discharge Data Studies Completed and Pending Completed Studies During Hospitalization Category Date Time Status CT angio chest PE protcl [id number] Stat Cat Scan 05/06/25 22:35 Completed XR chest 1V portable [id number] Routine Exams 05/08/25 08:00 Completed XR chest 1V portable [id number] Stat Exams 05/06/25 19:48 Completed CV. echo complete* [id number] Routine Ultrasound 05/07/25 01:56 Completed Pending at discharge Category Date Time Status Blood Culture Stat Lab 05/06/25 20:15 Results Blood Culture Stat Lab 05/07/25 23:32 Results Radiology Impressions Chest CTA 05/06/25 22:35 IMPRESSION: 1. No evidence of pulmonary embolism. 2. Diffuse interlobular septal thickening and bronchial wall thickening are nonspecific findings typical of pulmonary edema. 3. Enlarging mediastinal and bilateral hilar lymph nodes are nonspecific. 4. Trace bilateral pleural effusions with adjacent atelectasis. 5. Subpleural micro nodules measuring up to 5 mm. See comments section for Fleischner recommendations. COMMENTS: 1. For patients at low risk (minimal or absent history of smoking and of other known risk factors), no routine follow-up is indicated. For patients at high risk (history of smoking or of other known risk factors), consider optional CT Chest at 12 months. (Reference: Christy) 2. The presence of pulmonary emphysema on CT is an independent risk factor for lung cancer. In the absence of a history or active diagnosis of lung cancer, it is recommended that this patient with emphysema be evaluated for enrollment in a low dose CT lung cancer screening program. REFERENCES: Christy Buitrago, et al. Guidelines for Management of Incidental Pulmonary Nodules Detected on CT Images: From the Fleischner Society 2017. Radiology. 2017;284(1):228-243. Chest X-Ray 05/08/25 08:00 IMPRESSION: Presumed resolving congestive heart failure. Laboratory Results WBC 5.34 10^3/uL (3.29-11.43) 05/08/25 04:24 RBC 4.89 10^6/uL (3.85-5.65) 05/08/25 04:24 Hgb 15.90 g/dL (11.27-16.99) 05/08/25 04:24 Hct 53.2 % (36-47) H 05/08/25 04:24 MCV 108.8 fl (85-98) H 05/08/25 04:24 MCH 32.5 pg (27-33) 05/08/25 04:24 MCHC 29.9 g/dL (30-55) L 05/08/25 04:24 RDW 15.5 % (12.1-15.1) H 05/08/25 04:24 Plt Count 266 10^3/cmm (157-399) 05/08/25 04:24 MPV 11.2 fL (7.4-10.4) H 05/08/25 04:24 Neut % (Auto) 85.3 % 05/08/25 04:24 Lymph % (Auto) 9.4 % 05/08/25 04:24 [place] % (Auto) 4.9 % 05/08/25 04:24 Eos % (Auto) 0.0 % 05/08/25 04:24 Baso % (Auto) 0.0 % 05/08/25 04:24 Neut # (Auto) 4.56 10^3/uL (1.8-7.7) 05/08/25 04:24 Lymph # (Auto) 0.5 10^3/uL (0.8-4.8) L 05/08/25 04:24 [place] # (Auto) 0.3 10^3/uL (0.2-0.9) 05/08/25 04:24 Eos # (Auto) 0.0 10^3/uL (0.0-0.8) 05/08/25 04:24 Baso # (Auto) 0.0 10^3/uL (0.0-0.1) 05/08/25 04:24 Nucleated RBC % (auto) 0 % 05/08/25 04:24 Nucleated RBCs # 0.0 /100WBC 05/08/25 04:24 PT 12.70 SECONDS (12.1-14.9) 05/07/25 02:53 INR 0.89 (0.8-1.2) 05/07/25 02:53 APTT 24.8 SECONDS (23.9-36.7) 05/06/25 19:56 D-Dimer 0.38 ug/mLFEU (0-0.59) 05/06/25 19:56 Specimen Type Arterial 05/06/25 20:06 Sample Site Brachial, left 05/06/25 20:06 ABG pH 7.47 (7.35-7.45) H 05/06/25 20:06 ABG pCO2 61.8 mmHg (35-45) H* 05/06/25 20:06 ABG pO2 67.6 mmHg (80.0-100.0) L 05/06/25 20:06 ABG HCO3 45.2 mmol/L (22-26) H 05/06/25 20:06 ABG O2 Saturation 93.4 05/06/25 20:06 ABG Base Excess 17.9 mmol/L (-2.0-2.0) H 05/06/25 20:06 Baljeet Test N/a 05/06/25 20:06 A-a O2 Gradient 1.0 mmHg (5-10) L 05/06/25 20:06 Hematocrit 44.3 % (37-47) 05/06/25 20:06 Hgb O2 Saturation 85.2 % (95-100) L 05/06/25 20:06 Carboxyhemoglobin 8.5 %THgb (0.4-20.1) 05/06/25 20:06 Methemoglobin 0.3 % (0.4-1.5) L 05/06/25 20:06 Total Hemoglobin 14.4 g/dL (12-16) 05/06/25 20:06 Sodium 142.0 mmol/L (131-143) 05/06/25 20:06 Potassium 2.0 mmol/L (3.5-5.0) L 05/06/25 20:06 Glucose 80.0 mg/dL (70-115) 05/06/25 20:06 Ionized Calcium 1.0 mmol/L (1.1-1.4) L 05/06/25 20:06 O2 Delivery Device Nc 05/06/25 20:06 O2 Liters/Min 3.0 % 05/06/25 20:06 Hat Maker ID [email or web address] 05/06/25 20:06 Sodium 145 mmol/L (136-145) 05/08/25 04:24 Potassium 3.4 mmol/L (3.5-5.1) L 05/08/25 04:24 Chloride 93 mmol/L (98-107) L 05/08/25 04:24 Carbon Dioxide 41 mmol/L (22-29) H 05/08/25 04:24 Anion Gap 14.4 (5-19) 05/08/25 04:24 BUN 8 mg/dL (8-23) 05/08/25 04:24 Creatinine 0.6 mg/dL (0.5-0.9) 05/08/25 04:24 GFR Calculation 101.3 mL/min (90-130) 05/08/25 04:24 Glucose 185 mg/dL (65-115) H 05/08/25 04:24 Calculated Osmolality 303 mOsm/kg (285-295) H 05/08/25 04:24 Lactic Acid 3.6 mmol/L (0.5-2.2) H 05/06/25 19:56 Lactic Acid (Sepsis) 3.2 mmol/L (0.5-2.2) H 05/06/25 21:38 Lactate 1.6 mmol/L (0.5-2.2) 05/07/25 02:53 Calcium 8.2 mg/dL (8.5-10.5) L 05/08/25 04:24 Phosphorus 2.9 mg/dL (2.5-4.5) 05/07/25 02:53 Magnesium 2.0 mg/dL (1.7-2.3) 05/08/25 04:24 Total Bilirubin 0.4 mg/dL (0.15-1.2) 05/08/25 04:24 AST 18 U/L (0-32) 05/08/25 04:24 ALT 14 U/L (0-33) 05/08/25 04:24 Alkaline Phosphatase 160 U/L (35-105) H 05/08/25 04:24 Troponin T Baseline 27 ng/L (0-10) H 05/06/25 19:56 Troponin T 120 Minute 26.13 ng/L (0-10) H 05/06/25 21:38 Delta Troponin T -0.87 ABS# (0-10) L 05/06/25 21:38 Troponin T Hi Sens 6Hr 28.97 ng/L (0-10) H 05/07/25 02:53 Troponin T Hi Sens 6Hr Delta 1.97 ng/L (0-12) 05/07/25 02:53 NT-Pro-B Natriuret Pep 1566 pg/mL (0-125) H 05/06/25 19:56 Total Protein 6.7 g/dL (6.6-8.7) 05/08/25 04:24 Albumin 3.3 g/dL (3.5-5.2) L 05/08/25 04:24 Globulin 3.4 g/dL (1.3-4.6) 05/08/25 04:24 Adenovirus (PCR) Not detected (NOT DETECT) 05/06/25 20:09 C. pneumoniae DNA (PCR) Not detected (NOT DETECT) 05/06/25 20:09 Coronavirus 229E (PCR) Not detected (NOT DETECT) 05/06/25 20:09 Human Metapneumovir PCR Not detected (NOT DETECT) 05/06/25 20:09 Influenza A (H1) PCR Not detected (NOT DETECT) 05/06/25 20:09 Influ A (H1/09) PCR Not detected (NOT DETECT) 05/06/25 20:09 Influenza A (H3) PCR Not detected (NOT DETECT) 05/06/25 20:09 Influenza Type A (PCR) Not detected (NOT DETECT) 05/06/25 20:09 Influenza Type B (PCR) Not detected (NOT DETECT) 05/06/25 20:09 M. pneumoniae (PCR) Not detected (NOT DETECT) 05/06/25 20:09 Parainfluenza 1 (PCR) Not detected (NOT DETECT) 05/06/25 20:09 Parainfluenza 2 (PCR) Not detected (NOT DETECT) 05/06/25 20:09 Parainfluenza 3 (PCR) Not detected (NOT DETECT) 05/06/25 20:09 Parainfluenza 4 (PCR) Not detected (NOT DETECT) 05/06/25 20:09 RSV Type A (PCR) Not detected (NOT DETECT) 05/06/25 20:09 RSV Type B (PCR) Not detected (NOT DETECT) 05/06/25 20:09 Entero/Rhino (PCR) Not detected (NOT DETECT) 05/06/25 20:09 SARS-CoV-2 (PCR) Not detected (NOT DETECT) 05/06/25 20:09 Vitals Last Vital Signs Temp 97.7 F 05/08/25 11:25 Pulse 78 05/08/25 11:25 Resp 16 05/08/25 11:25 BP 157/90 05/08/25 13:30 Pulse Ox 97 05/08/25 11:29 O2 Del Method Room Air 05/08/25 11:29 O2 Flow Rate 4 05/08/25 08:14 Discharge Plan Discharge Patient Disposition: Left Against Medical Advice Condition: Stable Prescriptions: No Action aspirin 81 mg Tablet,Delayed Release (Dr/Ec) 81 mg PO DAILY Qty: 90 0RF albuterol sulfate 90 mcg/actuation HFA aerosol inhaler 2 inh inhalation Q4H PRN (Reason: shortness of breath or wheezing) Qty: 6.7 3RF potassium chloride 10 mEq Capsule, Extended Release 10 meq PO BID Tylenol Severe Allergy 12.5-500 mg Tablet 1 tab PO Q6H PRN (Reason: allergies) fluticasone propionate [Flonase Allergy Relief] 50 mcg/actuation [place],Suspension 1 spray INTRANASAL DAILY Rx Instructions: administer into each nostril Patient Instructions: Opioid Safety, Patient Portal & Jeanne Instructions Discharge Attestations Time Spent in Discharge Care*: less than 30 min Quality Metrics Clinical Quality Measures [ No reported AMI, CVA or VTE this stay] Coding Level of Care Code Acute Code for Chg Fwd Diagnoses Acute hypokalemia E87.6 COPD with acute exacerbation J44.1 Former cigarette smoker Z87.891 Hypoxemia R09.02 CHF (congestive heart failure) I50.9
--- NOTE | 2025-05-12 06:04 | PC.NURSE ---
critical lab called on 05/06/25 to nandini tovar LPN for a potassium of 2.7 contacted and 40meq of potassium PO and 40meq krider was ordered
== END 2025-05-08 14:34 | disposition left against medical advice (07) | DRG 292 ==
LOC: ER 05-07 00:39 → MEDSURG 05-07 00:51
PROVIDERS: Internal Medicine; Physician Assistant; Admitting Provider Internal Medicine; Emergency Provider General Practice; Visit Provider Student in an Organized Health Care Education/Training Program
DX: I11.0 Hypertensive heart disease with heart failure (principal); J44.1 Chronic obstructive pulmonary disease with (acute) exacerbation; E87.6 Hypokalemia; R09.02 Hypoxemia; I50.9 Heart failure, unspecified; Z53.29 Procedure and treatment not carried out because of patient's decision for other reasons; T50.916A Underdosing of multiple unspecified drugs, medicaments and biological substances, initial encounter; Z91.128 Patient's intentional underdosing of medication regimen for other reason; F41.1 Generalized anxiety disorder; E78.5 Hyperlipidemia, unspecified; Z87.891 Personal history of nicotine dependence; Z79.82 Long term (current) use of aspirin
CPT/HCPCS: 36415; 36600; 71045; 71275; 80048; 80051; 80053; 82330; 82805; 83605; 83735; 83880; 84100; 84484; 85025; 85378; 85610; 85730; 87040; 87486; 87581; 87633; 93005; 93306; 94640; 96361; 96372; 96374; 99285; J1644; J1938; J2919; J3480; J7030; J9999; Q0144

== ENCOUNTER → 2025-06-15 13:42 | Outpatient (BNVA) | payer OTHER, SELFPAY | PROVIDERS: Visit Provider Family Medicine | DX: I50.30 Unspecified diastolic (congestive) heart failure (principal); I50.20 Unspecified systolic (congestive) heart failure | CPT/HCPCS: 80053; 80061; 83880; 84439; 84443; 85025 ==

== ENCOUNTER → 2025-06-16 13:44 | Outpatient (BNVA) | payer OTHER, SELFPAY | PROVIDERS: Visit Provider Family Medicine | DX: E78.5 Hyperlipidemia, unspecified (principal) | CPT/HCPCS: 80053; 86705; 86706; 86709; 86803; 87340 ==

== ENCOUNTER 2025-07-07 07:32 | Outpatient (CLI) | payer BC, SELFPAY ==
--- NOTE | 2025-07-07 07:45 | US_ITS ---
WS: [id number] RIGHT UPPER QUADRANT ULTRASOUND HISTORY: transaminitis COMPARISON: 11/18/2023, 11/24/2023, 11/17/2023 Liver: 18.4 cm in length. Liver is top normal size to slightly enlarged. Complex cystic mass with a few internal echoes is reidentified along the anterior surface of the liver measures 5.7 x 3.4 x 4.7 cm. This mass has been described on prior imaging studies with no increase in size. Portal Vein: Normal hepatopetal flow with monophasic waveform. Gallbladder: Prior cholecystectomy. CBD: 0.7 cm Pancreas: Head and body are normal. Tail is obscured by bowel gas. Right kidney: 11.2 cm in length. Normal size and echogenicity. No hydronephrosis or mass. Aorta and IVC: Unremarkable abdominal aorta and IVC. No ascites. US/US liver [id number] IMPRESSION: 1. Prior cholecystectomy. 2. Normal common bile duct. 3. No intrahepatic duct dilatation. 4. Stable lobulated cystic mass in the anterior liver over several prior studi es. No increase in size.
== END 2025-07-07 07:33 | disposition home or self-care (01) ==
LOC: RAD 07:37
PROVIDERS: PCP Family Medicine; Visit Provider Family Medicine
DX: E78.5 Hyperlipidemia, unspecified (principal); Z90.49 Acquired absence of other specified parts of digestive tract; R16.0 Hepatomegaly, not elsewhere classified
CPT/HCPCS: 76705

== ENCOUNTER → 2025-07-28 08:10 | Outpatient (BNVA) | payer BC, SELFPAY | PROVIDERS: PCP Family Medicine; Visit Provider Family Medicine | DX: Z12.4 Encounter for screening for malignant neoplasm of cervix (principal) | CPT/HCPCS: 87624 ==

== ENCOUNTER → 2025-08-21 10:57 | Outpatient (BNVA) | payer BC, SELFPAY | PROVIDERS: PCP Family Medicine; Visit Provider Nurse Practitioner | DX: R50.9 Fever, unspecified (principal) | CPT/HCPCS: 87400; 87426 ==